=== PATIENT | female | born 1955 | race American Indian/Alaskan Native ===

== ENCOUNTER 2017-04-15 19:56 | Inpatient (IN) | payer BC ==
[2017-04-15] MEDS ORDERED: Eptifibatide 20 mg/10mL Inj IVP ONE (19:59)
[2017-04-15] MEDS ORDERED: Amiodarone 360 mg/D5W 200 ml 360 MG/200 ML BAG IV ONE (20:08)
--- NOTE | 2017-04-15 20:17 | ED PDOC ---
Arrival/HPI - General Time Seen by Provider: 04/15/17 20:00 Historian: Patient, EMS - History of Present Illness Narrative History of Present Illness (Text): 04/15/17 20:08 A 62 year old female transferred from another facility for cardiac arrest. Patient reportedly experienced a syncopal episode earlier today at work. Patient arrived to hospital and went into cardiac arrest, EKG showed ST-segment elevation [place]. She was defibrillated and started on amiodarone. Code heart was activated prior to patients arrival. On evaluation, patient is alert and oriented times 3. Patient currently denies any pain or discomfort. Patient denies any fever, chills, nausea, vomiting, abdominal pain, chest pain, shortness of breath or any other complaints. Time/Duration: Prior to Arrival Symptom Course: Resolved Quality: Other Context: Other Past Medical History - Provider Review Nursing Documentation Reviewed: Yes Family/Social History - Physician Review Nursing Documentation Reviewed: Yes Family/Social History: No Known Family HX Allergies/Home Meds Allergies/Adverse Reactions: Allergies latex Allergy (Verified 04/15/17 19:57) RASH pineapple Allergy (Verified 04/15/17 19:57) SWELLING Review of Systems - Physician Review All systems were reviewed & negative as marked: Yes - Review of Systems Constitutional: Normal. absent: Fevers, Night Sweats Respiratory: absent: SOB Cardiovascular: absent: Chest Pain Gastrointestinal: absent: Abdominal Pain, Nausea, Vomiting Neurological: absent: Headache, Dizziness Physical Exam Vital Signs Temp Pulse Pulse Resp BP Pulse Ox 04/15/17 20:00 83 04/15/17 19:56 98.2 F 83 18 113/76 99 Appearance: Positive for: Well-Appearing, Non-Toxic, Comfortable Pain Distress: None Mental Status: Positive for: Alert and Oriented X 3 - Systems Exam Head: Present: Atraumatic, Normocephalic Pupils: Present: PERRL Extroacular Muscles: Present: EOMI Conjunctiva: Present: Normal Mouth: Present: Moist Mucous Membranes Neck: Present: Normal Range of Motion Respiratory/Chest: Present: Clear to Auscultation, Good Air Exchange. No: Respiratory Distress, Accessory Muscle Use Cardiovascular: Present: Regular Rate and Rhythm, Normal S1, S2. No: Murmurs Abdomen: Present: Normal Bowel Sounds. No: Tenderness, Distention, Peritoneal Signs Back: Present: Normal Inspection Upper Extremity: Present: Normal Inspection. No: Cyanosis, Edema Lower Extremity: Present: Normal Inspection. No: Edema Neurological: Present: GCS=15, CN II-XII Intact, Speech Normal Skin: Present: Warm, Dry, Normal Color. No: Rashes Psychiatric: Present: Alert, Oriented x 3, Normal Insight, Normal Concentration Medical Decision Making ED Course and Treatment: 04/15/17 20:08 Impression: A 62 year old female brought in for cardiac arrest s/p rosc. stemi on previous ED EKG. On evaluation, patient is alert and oriented times 3. She denies any complaints at this time. Plan: -- Chest xray -- EKG -- Labs -- Urinalysis -- Reassess and disposition Progress Notes: 04/16/17 04:[address] anna nolasco. code heart activated. 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 [facility] with dr mast bedside. - Critical Care Critical Care Minutes: 45 minutes - Lab Interpretations Lab Results: 04/15/17 20:00 Lab Results 04/15/17 20:00: Phosphorus 2.9, Magnesium 2.5 H 04/15/17 20:00: Sodium 139, Potassium 3.6, Chloride 105, Carbon Dioxide 24, Anion Gap 14, BUN 13, Creatinine 0.5 L, Est GFR ( Amer) > 60, Est GFR ( Non-Af Amer) > 60, Random Glucose 156 H, Calcium 8.0 L, Magnesium 2.5 H, Total Bilirubin 0.7, AST 38 H, ALT 30, Alkaline Phosphatase 82, Lactate Dehydrogenase 507, Total Creatine Kinase 130, Troponin I 0.13 H*, Total Protein 6.6, Albumin 3.8, Globulin 2.8, Albumin/Globulin Ratio 1.4 I have reviewed the lab results: Yes - RAD Interpretation Radiology Orders: 04/15/17 20:00 CHEST PORTABLE [RAD] Stat - Medication Orders Current Medication Orders: Amiodarone HCl/Dextrose (Nexterone 360 Mg In D5w 200 Ml (Premix)) 360 mg in 200 mls @ 33.333 mls/hr IV .Q6H JENA; 1 MG/MIN PRN Reason: Protocol Last Admin: 04/16/17 02:14 Dose: 33.333 mls/hr eMAR Start Stop Document 04/16/17 02:14 JCHRISTIANE (Rec: 04/16/17 02:14 KARO [id number]) Intravenous Solution Start Date 04/16/17 Start Time 02:14 Potassium Chloride (Potassium Chloride 20 Meq/100 Ml) 20 meq in 100 mls @ 50 mls/hr IVPB ONCE ONE Stop: 04/16/17 05:50 Insulin Human Regular (Humulin R High) 0 units SC ACHS JENA PRN Reason: Protocol Last Admin: 04/15/17 22:29 Dose: Not Given Non-Admin Reason: Blood Sugar Parameter [facility] Blood Glucose Document 04/15/17 22:29 KARO (Rec: 04/15/17 22:29 KARO [id number]) Blood Glucose Finger Stick Blood Glucose (70-120) 135 Metoprolol Tartrate (Lopressor) 25 mg PO BID [facility] Last Admin: 04/15/17 21:41 Dose: 25 mg [facility] Pulse and Blood Pressure Document 04/15/17 21:41 KARO (Rec: 04/15/17 21:41 KARO [id number]) Pulse Pulse Rate (60-90) 86 Blood Pressure Blood Pressure (100/60-150/90) 114/50 Oxycodone/Acetaminophen (Percocet 5/325 Mg Tab) 1 tab PO Q4H PRN PRN Reason: Pain, severe (8-10) Stop: 04/18/17 21:32 Last Admin: 04/15/17 21:40 Dose: 1 tab [facility] Pain Assessment Document 04/15/17 21:40 KARO (Rec: 04/15/17 21:41 KARO [id number]) Pain Reassessment Is this a pain reassessment? No Sleep Is patient sleeping during reassessment? No Presence of Pain Presence of Pain Yes Pain Scale Used Pain Scale Used Numeric Location Left, Right or Bilateral Left Pain Location Body Site Chest Description Description Constant Intensity of Pain at present 10 Acceptable Level of Pain 0 Radiation Location CHEST Pain Behavior Facial Grimacing Aggravating Factors ADL's Changing Position Alleviating Factors/Management Medication Techniques Alleviating Factors Medication Effects of Pain DISCOMFORT Effectiveness of Techniques JUST GIVING MED. Re-Assess: [facility] Pain Assessment Document 04/15/17 22:40 KARO (Rec: 04/15/17 22:55 KARO [id number]) Pain Reassessment Is this a pain reassessment? Yes Sleep Is patient sleeping during reassessment? No Presence of Pain Presence of Pain No Pain Scale Used Pain Scale Used Numeric Location Pain Location Body Site Chest Description Intensity of Pain at present 0 Acceptable Level of Pain 0 Radiation Location CHEST Alleviating Factors/Management Medication Techniques Alleviating Factors Medication Effectiveness of Techniques EFFECTIVE Discontinued Medications Calcium/Vitamin D (Oscal-D 250 Mg-125 Units Tab) 1 tab PO STAT STA Stop: 04/15/17 23:20 Last Admin: 04/15/17 23:28 Dose: 1 tab Sodium Chloride (Sodium Chloride 0.9%) 1,000 mls @ 50 mls/hr IV .Q20H JENA Stop: 04/16/17 01:00 Last Admin: 04/15/17 21:52 Dose: 50 mls/hr eMAR Start Stop Document 04/15/17 21:52 KARO (Rec: 04/15/17 21:53 KARO [id number]) Intravenous Solution Start Date 04/15/17 Start Time 21:25 Calcium Gluconate 1,000 mg/ (Dextrose) 110 mls @ 110 mls/hr IVPB ONCE ONE Stop: 04/16/17 03:44 Last Admin: 04/16/17 03:05 Dose: 110 mls/hr eMAR Start Stop Document 04/16/17 03:05 PD (Rec: 04/16/17 03:05 PD [id number]) Intravenous Solution Start Date 04/16/17 Start Time 03:05 Morphine Sulfate (Morphine) 2 mg IVP STAT STA Stop: 04/15/17 23:04 Last Admin: 04/15/17 23:20 Dose: 2 mg MAR Pain Assessment Document 04/15/17 23:20 KARO (Rec: 04/15/17 23:22 KARO [id number]) Pain Reassessment Is this a pain reassessment? No Sleep Is patient sleeping during reassessment? No Presence of Pain Presence of Pain Yes Pain Scale Used Pain Scale Used Numeric Location Pain Location Body Site Chest Description Description Constant Intensity of Pain at present 7 Acceptable Level of Pain 0 Radiation Location CHEST Pain Behavior Restlessness Facial Grimacing Aggravating Factors ADL's Changing Position Alleviating Factors/Management Medication Techniques Alleviating Factors Medication Effects of Pain DISCOMFORT Effectiveness of Techniques JUST GIVING MED. IVP Administration Document 04/15/17 23:20 KARO (Rec: 04/15/17 23:22 KARO [id number]) Charges for Administration # of IVP Administrations 1 - Scribe Statement The provider has reviewed the documentation as recorded by the Scribe Hortensia Smith Provider Scribe Attestation: All medical record entries made by the Scribe were at my direction and personally dictated by me. I have reviewed the chart and agree that the record accurately reflects my personal performance of the history, physical exam, medical decision making, and the department course for this patient. I have also personally directed, reviewed, and agree with the discharge instructions and disposition. Disposition/Present on Arrival - Present on Arrival Any Indicators Present on Arrival: No - Disposition Have Diagnosis and Disposition been Completed?: Yes Diagnosis: STEMI (ST elevation myocardial infarction) Disposition: HOSPITALIZED Disposition Time: 10:00 Patient Problems: Current Active Problems Problem Status Onset STEMI (ST elevation myocardial infarction) Acute Condition: CRITICAL
[2017-04-15] MEDS ORDERED: Midazolam 2 MG/2 ML VIAL ONE (20:35)
--- NOTE | 2017-04-15 20:41 | CP.PCM.PN ---
<RHONA BARNETT - Last Filed: 04/15/17 20:36> Subjective - Date & Time of Evaluation Date of Evaluation: 04/15/17 Time of Evaluation: 20:36 - Subjective Subjective: Responded STAT to code heart in the ER. As per ER staff, pt had gone to nearby urgent care center, where she was noted to have an acute ST elevation [place]. Pt coded and was resuscitated. She was placed on amioadarone drip and transferred to [facility] ER for cardiac cath and any intervention that is needed. Pt was treated by ER MD, there after with oxygen and patient monitor in place. She was transferred to [facility] by staff from ER, Dr. Zuñiga, and myself. We waited in [facility] until Dr. Gillespie's arrival. <Rosana Zuñiga - Last Filed: 04/15/17 21:18> Objective - Vital Signs/Intake and Output Vital Signs (last 24 hours): Temp Pulse Resp BP Pulse Ox 98.2 F 83 18 113/76 99 04/15/17 19:56 04/15/17 20:00 04/15/17 19:56 04/15/17 19:56 04/15/17 19:56 Attending/Attestation - Attestation I have personally seen and examined this patient.: No I have fully participated in the care of the patient.: No I have reviewed all pertinent clinical information, including history, physical exam and plan: Yes Notes (Text): 04/15/17 21:10 Since this pt needed to be transferred to the [facility], he was not examined by us,her history was reviewed before she was transferred to the [facility].
[2017-04-15 20:58] LABS: ALB/GLOB RATIO 1.4 (1.1-1.8); ALKALINE PHOSPHATASE 82 U/L (38-126); ALT/SGPT 30 U/L (7-56); AST/SGOT 38 U/L (14-36); BILIRUBIN,TOTAL 0.7 mg/dL (0.2-1.3); BLOOD UREA NITROGEN 13 mg/dL (7-21); CARBON DIOXIDE 24 mmol/L (21-33); CHLORIDE 105 mmol/L (98-107); GFR AFRICAN-AMERICAN > 60; GLUCOSE,RANDOM 156 mg/dL (70-110); MAGNESIUM 2.5 mg/dL (1.7-2.2); POTASSIUM 3.6 mmol/L (3.6-5.0); SODIUM 139 mmol/L (132-148); TOTAL PROTEIN 6.6 g/dL (5.8-8.3)
[2017-04-15] MEDS ORDERED: Metoprolol 1 mg/ml Inj IVP ONE (21:03)
[2017-04-15 21:10] LABS: TROPONIN I 0.13 ng/mL
[2017-04-15 21:27] LABS: MAGNESIUM 2.5 mg/dL (1.7-2.2); PHOSPHOROUS 2.9 mg/dL (2.5-4.5)
[2017-04-15] MEDS ORDERED: Sodium Chloride 0.9% 1,000 ML IV SCH (21:30)
[2017-04-15] MEDS: Oxycodone/Acetaminophen 5/325 mg Tab PO PRN (21:40)
[2017-04-15] MEDS: Insulin Reg-HIGH-Coverage SC SCH (22:29)
[2017-04-15 22:38] LABS: GRAN # 8.96 (1.4-6.5); GRAN % 87.2 % (50.0-68.0); HEMATOCRIT 39.4 % (36.0-48.0); LYMPH % 9.5 % (22.0-35.0); MEAN CELL VOLUME 88.1 fl (80.0-105.0); MEAN CORPUSCULAR HEMOGLOBIN 28.9 pg (25.0-35.0); MEAN CORPUSCULAR HGB CONC 32.7 g/dl (31.0-37.0); MEAN PLATELET VOLUME 9.9 fl (7.0-11.0); MONO # 0.3 (0.1-0.6); MONO % 3.3 % (1.0-6.0); WHITE BLOOD COUNT 10.3 10^3/ul (4.5-11.0)
[2017-04-15 22:47] LABS: INR 1.04 (0.93-1.08); PARTIAL THROMBOPLASTIN TIME 49.1 Seconds (23.7-30.8)
[2017-04-15 22:58] LABS: CHOLESTEROL 170 mg/dL (130-200)
[2017-04-15] MEDS ORDERED: Morphine 4 mg/ml ISec IVP STA (23:03)
--- NOTE | 2017-04-15 23:06 | CP.PCM.CON ---
<Haris Nava - Last Filed: 04/15/17 23:27> History of Present Illness - History of Present Illness History of Present Illness: ICU consult note: 62 year old female with pmh of hemorrhagic cystitis, osteoprosis, seasonal allergies, presents to the ICU following code heart and clinical lab clerk. Pt states that earlier at work she had a syncopal episode accompanied with urinary incontinence. She than came home and went to urgent care center. Pt was reportedly had a cardiac arrest, coded and resuscitated, defibrillated?, and placed on Amio drip. Code heart activated prior to patient arrival. EKG showed STEMI. Pt was brought to the clinical lab clerk which was negative for any acute occlusion of coronary arteries. Pt did not complain of any chest pain, palpitations, or sob earlier in the day. She currently complains of some soreness of the R groin in the entrance site of the cardiac cath. Denies any cp, sob, cp, abd pain, n/v/d. 12 point ROS performed and negative other than stated above. 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, osteoprosis, seasonal allergies, PSH: cystoscopy 6yo Med: refer to MAR ALL: latex and pineapple SH: smoker x 40 years of half PPD; social drinker and marijuana user FH: denies Review of Systems - Review of Systems All systems: reviewed and no additional remarkable complaints except Past Patient History - Past Social History Smoking Status: Never Smoked - MUSCULOSKELETAL/RHEUMATOLOGICAL Hx Musculoskeletal Disorders: Yes Hx Osteoporosis: Yes - PSYCHIATRIC Hx Psychophysiologic Disorder: No Hx Substance Use: No - SURGICAL HISTORY Hx Surgeries: Yes (cystoscopy) - ANESTHESIA Hx Anesthesia: Yes Hx Anesthesia Reactions: No Hx Malignant Hyperthermia: No Meds Allergies/Adverse Reactions: Allergies Allergy/AdvReac Type Severity Reaction Status Date / Time latex Allergy RASH Verified 04/15/17 19:57 pineapple Allergy SWELLING Verified 04/15/17 19:57 - Medications Medications: Current Medications Calcium/Vitamin D (Oscal-D 250 Mg-125 Units Tab) 1 tab PO DAILY ONE Stop: 04/16/17 22:57 Sodium Chloride (Sodium Chloride 0.9%) 1,000 mls @ 50 mls/hr IV .Q20H JENA Stop: 04/16/17 01:00 Last Admin: 04/15/17 21:52 Dose: 50 mls/hr Insulin Human Regular (Humulin R High) 0 units SC ACHS JENA PRN Reason: Protocol Last Admin: 04/15/17 22:29 Dose: Not Given Metoprolol Tartrate (Lopressor) 25 mg PO BID [facility] Last Admin: 04/15/17 21:41 Dose: 25 mg Oxycodone/Acetaminophen (Percocet 5/325 Mg Tab) 1 tab PO Q4H PRN PRN Reason: Pain, severe (8-10) Stop: 04/18/17 21:32 Last Admin: 04/15/17 21:40 Dose: 1 tab Physical Exam - Constitutional Appears: No Acute Distress - Head Exam Head Exam: ATRAUMATIC, NORMOCEPHALIC - Eye Exam Eye Exam: EOMI, PERRL Pupil Exam: NORMAL ACCOMODATION - ENT Exam ENT Exam: Mucous Membranes Moist - Respiratory Exam Respiratory Exam: Clear to Auscultation Bilateral. absent: Rales, Wheezes - Cardiovascular Exam Cardiovascular Exam: REGULAR RHYTHM, +S1, +S2 - GI/Abdominal Exam GI & Abdominal Exam: Normal Bowel Sounds, Soft. absent: Tenderness - Extremities Exam Extremities exam: Negative for: calf tenderness, pedal edema - Neurological Exam Neurological exam: Alert, Oriented x3, Reflexes Normal - Psychiatric Exam Psychiatric exam: Normal Affect, Normal Mood - Skin Skin Exam: Dry, Intact, Warm Additional comments: RLE groin area: dressing cdi Results - Vital Signs Recent Vital Signs: Last Vital Signs Temp 98.4 F 04/15/17 21:25 Pulse 80 04/15/17 22:40 Resp 23 04/15/17 22:40 BP 120/85 04/15/17 22:30 Pulse Ox 96 04/15/17 22:40 - Labs Result Diagrams: 04/15/17 22:32 04/15/17 20:00 Labs: Laboratory Results - last 24 hr 04/15/17 04/15/17 04/15/17 21:57 22:32 22:32 WBC 10.3 RBC 4.47 Hgb 12.9 Hct 39.4 MCV 88.1 MCH 28.9 MCHC 32.7 RDW 16.0 H Plt Count 223 MPV 9.9 Gran % 87.2 H Lymph % (Auto) 9.5 L [place] % (Auto) 3.3 Eos % (Auto) 0.0 L Baso % (Auto) 0.0 Gran # 8.96 H Lymph # 1.0 L [place] # 0.3 Eos # 0.0 Baso # 0.00 PT 11.2 INR 1.04 APTT 49.1 H POC Glucose (mg/dL) 135 H Triglycerides Cholesterol HDL Cholesterol 04/15/17 22:32 WBC RBC Hgb Hct MCV MCH MCHC RDW Plt Count MPV Gran % Lymph % (Auto) [place] % (Auto) Eos % (Auto) Baso % (Auto) Gran # Lymph # [place] # Eos # Baso # PT INR APTT POC Glucose (mg/dL) Triglycerides 43 Cholesterol 170 HDL Cholesterol 46 Assessment & Plan - Assessment and Plan (Free Text) Assessment: 62F with pmh of hemorrhagic cystitis, osteoprosis, seasonal allergies, and heavy smoker presents to the ICU following cardiac arrest, defibrillation?, code heart called from the field, found to have STEMI and elevated troponin in the ED, sent to the clinical lab clerk - showing no acute occlusion of any coronary arteries. Pt currently is hemodynamically stable, being observed in the ICU, and is on Amiodorone drip. Neuro: - Stable - AAO x 3 Pulm: - O2 as needed - Stable CV: - EKG showed STEMI - Troponin x 1 positive at 0.13 - Cont Amiodrone drip, BB - Cardiology consult for recs - F/u serial trops and morning EKG - F/u Hba1c, BNP, TSH, Lipid profile - Consider starting aspirin GI: - GI ppx - Stable Renal: - Cont fluid hydration NS @ 50/hr - Replete electrolytes as needed - Ca of 8 - repleted with Oscal x 1 ID: - afebrile, and no leukocytosis - Stable Endo: - Finger stick blood sugars - ISS as protocol Heme: - Monitor H/H - Stable Ext: - Monitor for ext pulses - Monitor R groin dressing Case and plan was reviewed and discussed in detail with Dr Rhodes. <Meagan POMPA,Trung - Last Filed: 04/16/17 06:55> Meds - Medications Medications: Current Medications Amiodarone HCl/Dextrose (Nexterone 360 Mg In D5w 200 Ml (Premix)) 360 mg in 200 mls @ 33.333 mls/hr IV .Q6H JENA; 1 MG/MIN PRN Reason: Protocol Last Admin: 04/16/17 02:14 Dose: 33.333 mls/hr Insulin Human Regular (Humulin R High) 0 units SC ACHS JENA PRN Reason: Protocol Last Admin: 04/15/17 22:29 Dose: Not Given Metoprolol Tartrate (Lopressor) 25 mg PO BID JENA Last Admin: 04/15/17 21:41 Dose: 25 mg Oxycodone/Acetaminophen (Percocet 5/325 Mg Tab) 1 tab PO Q4H PRN PRN Reason: Pain, severe (8-10) Stop: 04/18/17 21:32 Last Admin: 04/16/17 05:05 Dose: 1 tab Results - Vital Signs Recent Vital Signs: Last Vital Signs Temp 98.4 F 04/16/17 00:00 Pulse 72 04/16/17 06:15 Resp 23 04/16/17 06:15 BP 106/71 04/16/17 06:15 Pulse Ox 99 04/16/17 06:15 - Labs Result Diagrams: 04/16/17 04:00 04/16/17 04:00 Labs: Laboratory Results - last 24 hr 04/15/17 04/15/17 04/15/17 21:57 22:32 22:32 WBC 10.3 RBC 4.47 Hgb 12.9 Hct 39.4 MCV 88.1 MCH 28.9 MCHC 32.7 RDW 16.0 H Plt Count 223 MPV 9.9 Gran % 87.2 H Lymph % (Auto) 9.5 L [place] % (Auto) 3.3 Eos % (Auto) 0.0 L Baso % (Auto) 0.0 Gran # 8.96 H Lymph # 1.0 L [place] # 0.3 Eos # 0.0 Baso # 0.00 PT 11.2 INR 1.04 APTT 49.1 H Sodium Potassium Chloride Carbon Dioxide Anion Gap BUN Creatinine Est GFR ( Amer) Est GFR (Non-Af Amer) POC Glucose (mg/dL) 135 H Random Glucose Calcium Total Bilirubin AST ALT Alkaline Phosphatase Troponin I NT-Pro-B Natriuret Pep Total Protein Albumin Globulin Albumin/Globulin Ratio Triglycerides Cholesterol LDL Cholesterol Direct HDL Cholesterol TSH 3rd Generation 04/15/17 04/15/17 04/16/17 22:32 22:32 04:00 WBC 12.7 H D RBC 4.46 Hgb 12.7 Hct 39.4 MCV 88.3 MCH 28.5 MCHC 32.2 RDW 16.1 H Plt Count 225 MPV 10.6 Gran % Lymph % (Auto) [place] % (Auto) Eos % (Auto) Baso % (Auto) Gran # Lymph # [place] # Eos # Baso # PT INR APTT Sodium Potassium Chloride Carbon Dioxide Anion Gap BUN Creatinine Est GFR ( Amer) Est GFR (Non-Af Amer) POC Glucose (mg/dL) Random Glucose Calcium Total Bilirubin AST ALT Alkaline Phosphatase Troponin I NT-Pro-B Natriuret Pep 4790 H Total Protein Albumin Globulin Albumin/Globulin Ratio Triglycerides 43 Cholesterol 170 LDL Cholesterol Direct 119 HDL Cholesterol 46 TSH 3rd Generation 0.34 L 04/16/17 04:00 WBC RBC Hgb Hct MCV MCH MCHC RDW Plt Count MPV Gran % Lymph % (Auto) [place] % (Auto) Eos % (Auto) Baso % (Auto) Gran # Lymph # [place] # Eos # Baso # PT INR APTT Sodium 139 Potassium 4.1 Chloride 104 Carbon Dioxide 24 Anion Gap 15 BUN 13 Creatinine 0.5 L Est GFR ( Amer) > 60 Est GFR (Non-Af Amer) > 60 POC Glucose (mg/dL) Random Glucose 151 H Calcium 9.0 Total Bilirubin 0.8 AST 30 ALT 34 Alkaline Phosphatase 77 Troponin I 0.09 D NT-Pro-B Natriuret Pep Total Protein 7.1 Albumin 4.0 Globulin 3.1 Albumin/Globulin Ratio 1.3 Triglycerides Cholesterol LDL Cholesterol Direct HDL Cholesterol TSH 3rd Generation Attending/Attestation - Attestation I have personally seen and examined this patient.: Yes I have fully participated in the care of the patient.: Yes I have reviewed all pertinent clinical information: Yes Notes (Text): -I agree with the above ICU consult note completed by the resident physician with the following additions and/or changes: The patient is a 62 yo AAF with a history of chronic tobacco use, who presented to a nearby urgent care clinic with syncope yesterday. At the clinic she reportedly required ACLS resuscitation (with defibrillation)(presumably due to Vtach) and was also found to have an STEMI on EKG. Consequently, she was transferred immediately to [facility] and take to the clinical lab clerk. Cardiac cath showed clear coronaries and dilated cardiomyopathy, consistent with Takotsubo cardiomyopathy. She was started on Amiodarone drip and transferred to the ICU this evening post cardiac cath. Currently, she denies any chest pain.
--- NOTE | 2017-04-15 23:11 | CARDCATH ---
EMERGENCY CARDIAC CATHETERIZATION PROCEDURE DATE: 04/15/2017 HISTORY: The patient is a 62-year-old woman, who was [facility] the [facility] emergency [facility] after suffering two episodes of documented vascular collapse secondary to ventricular tachycardia in which she had multiple CPR episodes. The patient woke up from her electrical arrhythmia and hemodynamic collapse and was neurologically intact. Her EKG showed markedly diffuse ST-T changes consistent with anterior wall ischemia versus metabolic abnormalities. The patient was brought in, was transferred to [facility] for emergency cardiac catheterization. PROCEDURE Left heart catheterization with coronary artery and left ventriculogram with supra-aortic valvular injection. The right femoral artery was cannulated with 6-Yoruba sheath. There were no complications. The findings on catheterization revealed a right dominant circulation. The RCA revealed intimal irregularities without significant stenoses. The left main artery was unremarkable. The LAD revealed mild intimal irregularities without critical lesions. Diagonal vessels were free of significant disease. The circumflex artery and obtuse marginal branch revealed mild intimal irregularities without critical lesions. Supra-aortic valvular injection revealed no aortic insufficiency. Left ventriculogram was performed in the NORTH projection. In the NORTH projection, the left ventricle was dilated and diffusely hypokinetic with an ejection fraction 20% to 25%. The anterior apical inferior segments were akinetic. Angio-Seal was used to close the femoral artery site. The patient tolerated the procedure well. In summary, the procedure revealed a dilated cardiomyopathy consistent with Takotsubo cardiomyopathy. Coronary arteries are unremarkable. Given these findings, we will continue the patient on IV amiodarone. We will add beta-blockers her regimen. We will need to recheck all her electrolytes. We will obtain an EP consult to better help evaluate and treat her electrical abnormalities. Philip Gillespie MD
[2017-04-15] MEDS ORDERED: Calcium-Vit D 250 mg-125 Units Tab UD PO STA (23:19)
[2017-04-16 00:40] VITALS: BMI 25.7
[2017-04-16] MEDS: Amiodarone 360 mg/D5W 200 ml 360 MG/200 ML BAG IV SCH ×4 (02:14→20:28)
[2017-04-16 04:28] LABS: HEMATOCRIT 39.4 % (36.0-48.0); MEAN CELL VOLUME 88.3 fl (80.0-105.0); MEAN CORPUSCULAR HEMOGLOBIN 28.5 pg (25.0-35.0); MEAN CORPUSCULAR HGB CONC 32.2 g/dl (31.0-37.0); MEAN PLATELET VOLUME 10.6 fl (7.0-11.0); RED CELL DISTRIBUTION WIDTH 16.1 % (11.5-14.5); WHITE BLOOD COUNT 12.7 10^3/ul (4.5-11.0)
[2017-04-16 04:37] LABS: ALB/GLOB RATIO 1.3 (1.1-1.8); ALKALINE PHOSPHATASE 77 U/L (38-126); ALT/SGPT 34 U/L (7-56); AST/SGOT 30 U/L (14-36); BILIRUBIN,TOTAL 0.8 mg/dL (0.2-1.3); BLOOD UREA NITROGEN 13 mg/dL (7-21); CARBON DIOXIDE 24 mmol/L (21-33); CHLORIDE 104 mmol/L (98-107); GFR AFRICAN-AMERICAN > 60; GLUCOSE,RANDOM 151 mg/dL (70-110); POTASSIUM 4.1 mmol/L (3.6-5.0); SODIUM 139 mmol/L (132-148); TOTAL PROTEIN 7.1 g/dL (5.8-8.3)
[2017-04-16 05:00] LABS: TROPONIN I 0.09 ng/mL
[2017-04-16] MEDS: Oxycodone/Acetaminophen 5/325 mg Tab PO PRN ×2 (05:05→22:22)
[2017-04-16] MEDS: Potassium Chloride 10 mEq ER Tab PO SCH (07:49)
[2017-04-16] MEDS: Insulin Reg-HIGH-Coverage SC SCH ×4 (07:49→21:43)
--- NOTE | 2017-04-16 08:50 | RAD ---
HISTORY: code heart COMPARISON: No prior. FINDINGS: LUNGS: No active pulmonary disease. PLEURA: No significant pleural effusion identified, no pneumothorax apparent. CARDIOVASCULAR: Normal. OSSEOUS STRUCTURES: No significant abnormalities. VISUALIZED UPPER ABDOMEN: Normal. OTHER FINDINGS: None. IMPRESSION: No active disease.
[2017-04-16 09:57] LABS: URINE BILIRUBIN NEGATIVE (NEGATIVE); URINE BLOOD SMALL (NEGATIVE); URINE GLUCOSE (UA) NEGATIVE (NEGATIVE); URINE KETONE TRACE mg/dL (NEGATIVE); URINE LEUKOCYTE ESTERASE NEGATIVE Leu/uL (NEGATIVE); URINE PROTEIN TRACE mg/dL (<30 mg/dL); URINE UROBILINOGEN 0.2 E.U./dL (<1 E.U./dL)
[2017-04-16 09:58] LABS: URINE APPEARANCE SL CLOUDY (CLEAR); URINE COLOR YELLOW (YELLOW)
--- NOTE | 2017-04-16 10:04 | CP.PCM.CON ---
History of Present Illness - History of Present Illness History of Present Illness: 62 year old female with PMH of hemorrhagic cystitis from NSAIDs, osteoporosis, seasonal allergies, S/P cystoscopy was [place] [facility] [place] apparently had ventricular tachycardia and cardiac arrest requiring CPR in the field. When she got here, she was placed on an Amiodarone drip and cardiac cath was done which showed clean coronary arteries. EP has been called to further evaluate. Today, WBC count is noted to be elevated and Infectious diseases consult is requested to further evaluate and manage. Patient denies having fever or chills , did not have cough prior to admission, no rhinorrhea, no headache or dizziness , has chest pain currently but she attributes it to the chest compressions, no abdominal pain, no diarrhea, no dysuria. Review of Systems - Review of Systems All systems: reviewed and no additional remarkable complaints except (as per HPI ) Past Patient History - Past Social History Smoking Status: Never Smoked - CARDIAC Hx Cardiac Disorders: No - PULMONARY Hx Respiratory Disorders: No - NEUROLOGICAL Hx Dizziness: Yes (TODAY) - HEENT Hx HEENT Problems: No - RENAL Hx Chronic Kidney Disease: No - ENDOCRINE/METABOLIC Hx Endocrine Disorders: No - HEMATOLOGICAL/ONCOLOGICAL Hx Blood Disorders: No - INTEGUMENTARY Hx Dermatological Problems: No - MUSCULOSKELETAL/RHEUMATOLOGICAL Hx Musculoskeletal Disorders: Yes Hx Osteoporosis: Yes - GASTROINTESTINAL Hx Gastrointestinal Disorders: No - GENITOURINARY/GYNECOLOGICAL Hx Genitourinary Disorders: No - PSYCHIATRIC Hx Psychophysiologic Disorder: No Hx Substance Use: No - SURGICAL HISTORY Hx Surgeries: Yes (cystoscopy) - ANESTHESIA Hx Anesthesia: Yes Hx Anesthesia Reactions: No Hx Malignant Hyperthermia: No Meds Allergies/Adverse Reactions: Allergies Allergy/AdvReac Type Severity Reaction Status Date / Time latex Allergy RASH Verified 04/15/17 19:57 pineapple Allergy SWELLING Verified 04/15/17 19:57 - Medications Medications: Current Medications Amiodarone HCl (Cordarone) 800 mg PO BID JENA Amiodarone HCl/Dextrose (Nexterone 360 Mg In D5w 200 Ml (Premix)) 360 mg in 200 mls @ 33.333 mls/hr IV .Q6H JENA; 1 MG/MIN PRN Reason: Protocol Last Admin: 04/16/17 02:14 Dose: 33.333 mls/hr Insulin Human Regular (Humulin R High) 0 units SC ACHS JENA PRN Reason: Protocol Last Admin: 04/16/17 07:49 Dose: Not Given Metoprolol Tartrate (Lopressor) 25 mg PO BID [facility] Last Admin: 04/15/17 21:41 Dose: 25 mg Oxycodone/Acetaminophen (Percocet 5/325 Mg Tab) 1 tab PO Q4H PRN PRN Reason: Pain, severe (8-10) Stop: 04/18/17 21:32 Last Admin: 04/16/17 05:05 Dose: 1 tab Potassium Chloride (Klor-Con 10) 10 meq PO BRK [facility] Last Admin: 04/16/17 07:49 Dose: 10 meq Physical Exam - Constitutional Appears: Non-toxic, Other (in some pain in the chest) - Head Exam Head Exam: NORMAL INSPECTION - ENT Exam ENT Exam: Mucous Membranes Moist - Neck Exam Neck exam: Negative for: Meningismus - Respiratory Exam Respiratory Exam: Decreased Breath Sounds - Cardiovascular Exam Cardiovascular Exam: +S1, +S2 - GI/Abdominal Exam GI & Abdominal Exam: Soft. absent: Tenderness Results - Vital Signs Recent Vital Signs: Last Vital Signs Temp 98.4 F 04/16/17 00:00 Pulse 74 04/16/17 08:30 Resp 20 04/16/17 08:30 BP 111/66 04/16/17 08:30 Pulse Ox 97 04/16/17 08:30 - Labs Result Diagrams: 04/16/17 04:00 04/16/17 04:00 Labs: Laboratory Results - last 24 hr 04/15/17 04/15/17 04/15/17 21:57 22:32 22:32 WBC 10.3 RBC 4.47 Hgb 12.9 Hct 39.4 MCV 88.1 MCH 28.9 MCHC 32.7 RDW 16.0 H Plt Count 223 MPV 9.9 Gran % 87.2 H Lymph % (Auto) 9.5 L Geary % (Auto) 3.3 Eos % (Auto) 0.0 L Baso % (Auto) 0.0 Gran # 8.96 H Lymph # 1.0 L Geary # 0.3 Eos # 0.0 Baso # 0.00 PT 11.2 INR 1.04 APTT 49.1 H Sodium Potassium Chloride Carbon Dioxide Anion Gap BUN Creatinine Est GFR ( Amer) Est GFR (Non-Af Amer) POC Glucose (mg/dL) 135 H Random Glucose Calcium Total Bilirubin AST ALT Alkaline Phosphatase Troponin I NT-Pro-B Natriuret Pep Total Protein Albumin Globulin Albumin/Globulin Ratio Triglycerides Cholesterol LDL Cholesterol Direct HDL Cholesterol TSH 3rd Generation 04/15/17 04/15/17 04/16/17 22:32 22:32 04:00 WBC 12.7 H D RBC 4.46 Hgb 12.7 Hct 39.4 MCV 88.3 MCH 28.5 MCHC 32.2 RDW 16.1 H Plt Count 225 MPV 10.6 Gran % Lymph % (Auto) Geary % (Auto) Eos % (Auto) Baso % (Auto) Gran # Lymph # Geary # Eos # Baso # PT INR APTT Sodium Potassium Chloride Carbon Dioxide Anion Gap BUN Creatinine Est GFR ( Amer) Est GFR (Non-Af Amer) POC Glucose (mg/dL) Random Glucose Calcium Total Bilirubin AST ALT Alkaline Phosphatase Troponin I NT-Pro-B Natriuret Pep 4790 H Total Protein Albumin Globulin Albumin/Globulin Ratio Triglycerides 43 Cholesterol 170 LDL Cholesterol Direct 119 HDL Cholesterol 46 TSH 3rd Generation 0.34 L 04/16/17 04:00 WBC RBC Hgb Hct MCV MCH MCHC RDW Plt Count MPV Gran % Lymph % (Auto) Geary % (Auto) Eos % (Auto) Baso % (Auto) Gran # Lymph # Geary # Eos # Baso # PT INR APTT Sodium 139 Potassium 4.1 Chloride 104 Carbon Dioxide 24 Anion Gap 15 BUN 13 Creatinine 0.5 L Est GFR ( Amer) > 60 Est GFR (Non-Af Amer) > 60 POC Glucose (mg/dL) Random Glucose 151 H Calcium 9.0 Total Bilirubin 0.8 AST 30 ALT 34 Alkaline Phosphatase 77 Troponin I 0.09 D NT-Pro-B Natriuret Pep Total Protein 7.1 Albumin 4.0 Globulin 3.1 Albumin/Globulin Ratio 1.3 Triglycerides Cholesterol LDL Cholesterol Direct HDL Cholesterol TSH 3rd Generation Assessment & Plan - Assessment and Plan (Free Text) Plan: Assessment Systemic Inflammatory Response Syndrome, consider acute stress reaction from dilated cardiomyopathy S/P cardiac cath R/O sepsis source to be determined hemorrhagic cystitis from NSAIDs osteoporosis seasonal allergies S/P cystoscopy Plan Will check blood, urine cx, PCT; CXR did not show infiltrates - will monitor off antibiotics for now and trend WBC count will monitor clinically follow up further Cardiology evaluation
[2017-04-16 10:05] LABS: URINE BACTERIA FEW (NEG); URINE EPITHELIAL CELLS 0 - 2 /hpf (0-5); URINE RBC 0 - 2 /hpf (0-2)
--- NOTE | 2017-04-16 10:17 | CP.CCUPN ---
<AryanRinku - Last Filed: 04/16/17 15:34> CCU Subjective - Physician Review Subjective (Free Text): 04/16/17 10:14 Patient seen and examined this AM in ICU. Patient is s/p LHC with cardiology earlier this AM. Patient is complaining of nausea and ankle discomfort as well as chest discomfort for which she credited to chest compressions preformed yesterday. Patient denies shob, abdominal pain, fever, chills. CCU Objective - Vital Signs / Intake & Output Vital Signs (Last 4 hours): Vital Signs Pulse Resp BP Pulse Ox 04/16/17 10:00 97 H 25 H 99 04/16/17 09:50 72 36 H 96 04/16/17 09:41 76 47 H 04/16/17 09:40 86 20 04/16/17 09:30 75 29 H 105/70 82 L 04/16/17 09:20 72 23 97 04/16/17 09:15 72 26 H 105/62 97 04/16/17 09:10 71 25 H 96 04/16/17 09:00 73 22 109/68 98 04/16/17 08:50 74 19 91 L 04/16/17 08:45 71 22 104/58 L 96 04/16/17 08:40 72 23 96 04/16/17 08:30 74 20 111/66 97 04/16/17 08:20 75 40 H 95 04/16/17 08:16 79 22 121/72 96 04/16/17 08:10 78 13 96 04/16/17 08:08 82 14 124/70 04/16/17 08:02 71 23 111/73 99 04/16/17 08:00 72 21 99 04/16/17 07:50 70 21 105/73 96 04/16/17 07:45 76 22 105/73 96 04/16/17 07:40 68 25 H 97 04/16/17 07:30 76 17 113/63 99 04/16/17 07:20 71 98 04/16/17 07:15 71 23 105/69 99 04/16/17 07:10 73 98 04/16/17 07:00 69 23 100/67 98 04/16/17 06:50 74 20 98 04/16/17 06:45 74 24 108/51 L 98 04/16/17 06:40 80 16 88 L 04/16/17 06:30 73 22 106/70 97 04/16/17 06:20 73 21 99 04/16/17 06:15 72 23 106/71 99 Intake and Output (Last 8hrs): Intake & Output 04/15/17 04/16/17 04/16/17 22:59 06:59 14:59 Intake Total 1230 Output Total 125 Balance 1105 Weight 169 lb 169 lb Intake: IV 1030 Left Antecubital 1030 Right Antecubital 0 Oral 200 Output: Urine 125 Urine, Voided 125 Other: # Bowel Movements 0 - Physical Exam Head: Positive for: Atraumatic, Normocephalic Pupils: Positive for: PERRL Extroacular Muscles: Positive for: EOMI Conjunctiva: Positive for: Normal Mouth: Positive for: Moist Mucous Membranes Neck: Positive for: Normal Range of Motion Respiratory/Chest: Positive for: Clear to Auscultation, Good Air Exchange. Negative for: Respiratory Distress, Accessory Muscle Use Cardiovascular: Positive for: Regular Rate and Rhythm, Normal S1, S2. Negative for: Murmurs Abdomen: Positive for: Normal Bowel Sounds. Negative for: Tenderness, Distention, Peritoneal Signs Back: Positive for: Normal Inspection Upper Extremity: Positive for: Normal Inspection. Negative for: Cyanosis, Edema Lower Extremity: Positive for: Normal Inspection. Negative for: Edema Neurological: Positive for: GCS=15, CN II-XII Intact, Speech Normal Skin: Positive for: Warm, Dry, Normal Color. Negative for: Rashes Psychiatric: Positive for: Alert, Oriented x 3, Normal Insight, Normal Concentration - Medications Active Medications: Active Medications Generic Name Dose Route Start Last Admin Trade Name Freq PRN Reason Stop Dose Admin Amiodarone HCl 800 mg 04/16/17 10:00 Cordarone PO BID JENA Amiodarone HCl/Dextrose 360 mg in 200 mls @ 33.333 mls/hr 04/16/17 02:15 02:14 Nexterone 360 Mg In D5w 200 Ml (Premix) IV 33.333 mls/hr .Q6H JENA Administration Protocol 1 MG/MIN Insulin Human Regular 0 units 04/15/17 22:00 04/16/17 07:49 Humulin R High SC Not Given ACHS JENA Protocol Metoprolol Tartrate 25 mg 04/15/17 21:30 04/15/17 21:41 Lopressor PO 25 mg BID JENA Administration Oxycodone/Acetaminophen 1 tab 04/15/17 21:31 04/16/17 05:05 Percocet 5/325 Mg Tab PO 04/18/17 21:32 1 tab Q4H PRN Administration Pain, severe (8-10) Potassium Chloride 10 meq 04/16/17 08:00 04/16/17 07:49 Klor-Con 10 PO 10 meq BRK JENA Administration - Patient Studies Lab Studies: Lab Studies 04/16/17 04/16/17 04/16/17 Range/Units 09:50 04:00 04:00 WBC 12.7 H D (4.5-11.0) 10^3/ul RBC 4.46 (3.5-6.1) 10^6/uL Hgb 12.7 (12.0-16.0) g/dL Hct 39.4 (36.0-48.0) % MCV 88.3 (80.0-105.0) fl MCH 28.5 (25.0-35.0) pg MCHC 32.2 (31.0-37.0) g/dl RDW 16.1 H (11.5-14.5) % Plt Count 225 (120.0-450.0) 10^3/uL MPV 10.6 (7.0-11.0) fl Gran % (50.0-68.0) % Lymph % (Auto) (22.0-35.0) % [place] % (Auto) (1.0-6.0) % Eos % (Auto) (1.5-5.0) % Baso % (Auto) (0.0-3.0) % Gran # (1.4-6.5) Lymph # (1.2-3.4) [place] # (0.1-0.6) Eos # (0.0-0.7) Baso # (0.0-2.0) K/mm3 PT (9.9-11.8) Seconds INR (0.93-1.08) APTT (23.7-30.8) Seconds Sodium 139 (132-148) mmol/L Potassium 4.1 (3.6-5.0) mmol/L Chloride 104 (98-107) mmol/L Carbon Dioxide 24 (21-33) mmol/L Anion Gap 15 (10-20) BUN 13 (7-21) mg/dL Creatinine 0.5 L (0.7-1.2) mg/dL Est GFR ( Amer) > 60 Est GFR (Non-Af Amer) > 60 POC Glucose (mg/dL) (65-110) mg/dL Random Glucose 151 H (70-110) mg/dL Calcium 9.0 (8.4-10.5) mg/dL Total Bilirubin 0.8 (0.2-1.3) mg/dL AST 30 (14-36) U/L ALT 34 (7-56) U/L Alkaline Phosphatase 77 (38-126) U/L Troponin I 0.09 D ng/mL NT-Pro-B Natriuret Pep (0-450) pg/mL Total Protein 7.1 (5.8-8.3) g/dL Albumin 4.0 (3.0-4.8) g/dL Globulin 3.1 gm/dL Albumin/Globulin Ratio 1.3 (1.1-1.8) Triglycerides (35-160) mg/dL Cholesterol (130-200) mg/dL LDL Cholesterol Direct (0-129) mg/dL HDL Cholesterol (29-60) mg/dL TSH 3rd Generation (0.46-4.68) mIU/mL Urine Color Yellow (YELLOW) Urine Appearance Sl cloudy (CLEAR) Urine pH 6.0 (4.7-8.0) Ur Specific [place] 1.025 (1.005-1.035) Urine Protein Trace H (<30 mg/dL) mg/dL Urine Glucose (UA) Negative (NEGATIVE) mg/dL Urine Ketones Trace H (NEGATIVE) mg/dL Urine Blood Small H (NEGATIVE) Urine Nitrate Positive H (NEGATIVE) Urine Bilirubin Negative (NEGATIVE) Urine Urobilinogen 0.2 (<1 E.U./dL) E.U./dL Ur Leukocyte Esterase Negative (NEGATIVE) Ryan/uL Urine RBC 0 - 2 (0-2) /hpf Urine WBC 2 - 5 (0-6) /hpf Ur Epithelial Cells 0 - 2 (0-5) /hpf Urine Bacteria Few (NEG) 04/15/17 04/15/17 04/15/17 Range/Units 22:32 22:32 22:32 WBC (4.5-11.0) 10^3/ul RBC (3.5-6.1) 10^6/uL Hgb (12.0-16.0) g/dL Hct (36.0-48.0) % MCV (80.0-105.0) fl MCH (25.0-35.0) pg MCHC (31.0-37.0) g/dl RDW (11.5-14.5) % Plt Count (120.0-450.0) 10^3/uL MPV (7.0-11.0) fl Gran % (50.0-68.0) % Lymph % (Auto) (22.0-35.0) % [place] % (Auto) (1.0-6.0) % Eos % (Auto) (1.5-5.0) % Baso % (Auto) (0.0-3.0) % Gran # (1.4-6.5) Lymph # (1.2-3.4) [place] # (0.1-0.6) Eos # (0.0-0.7) Baso # (0.0-2.0) K/mm3 PT 11.2 (9.9-11.8) Seconds INR 1.04 (0.93-1.08) APTT 49.1 H (23.7-30.8) Seconds Sodium (132-148) mmol/L Potassium (3.6-5.0) mmol/L Chloride (98-107) mmol/L Carbon Dioxide (21-33) mmol/L Anion Gap (10-20) BUN (7-21) mg/dL Creatinine (0.7-1.2) mg/dL Est GFR ( Amer) Est GFR (Non-Af Amer) POC Glucose (mg/dL) (65-110) mg/dL Random Glucose (70-110) mg/dL Calcium (8.4-10.5) mg/dL Total Bilirubin (0.2-1.3) mg/dL AST (14-36) U/L ALT (7-56) U/L Alkaline Phosphatase (38-126) U/L Troponin I ng/mL NT-Pro-B Natriuret Pep 4790 H (0-450) pg/mL Total Protein (5.8-8.3) g/dL Albumin (3.0-4.8) g/dL Globulin gm/dL Albumin/Globulin Ratio (1.1-1.8) Triglycerides 43 (35-160) mg/dL Cholesterol 170 (130-200) mg/dL LDL Cholesterol Direct 119 (0-129) mg/dL HDL Cholesterol 46 (29-60) mg/dL TSH 3rd Generation 0.34 L (0.46-4.68) mIU/mL Urine Color (YELLOW) Urine Appearance (CLEAR) Urine pH (4.7-8.0) Ur Specific [place] (1.005-1.035) Urine Protein (<30 mg/dL) mg/dL Urine Glucose (UA) (NEGATIVE) mg/dL Urine Ketones (NEGATIVE) mg/dL Urine Blood (NEGATIVE) Urine Nitrate (NEGATIVE) Urine Bilirubin (NEGATIVE) Urine Urobilinogen (<1 E.U./dL) E.U./dL Ur Leukocyte Esterase (NEGATIVE) Ryan/uL Urine RBC (0-2) /hpf Urine WBC (0-6) /hpf Ur Epithelial Cells (0-5) /hpf Urine Bacteria (NEG) 04/15/17 04/15/17 Range/Units 22:32 21:57 WBC 10.3 (4.5-11.0) 10^3/ul RBC 4.47 (3.5-6.1) 10^6/uL Hgb 12.9 (12.0-16.0) g/dL Hct 39.4 (36.0-48.0) % MCV 88.1 (80.0-105.0) fl MCH 28.9 (25.0-35.0) pg MCHC 32.7 (31.0-37.0) g/dl RDW 16.0 H (11.5-14.5) % Plt Count 223 (120.0-450.0) 10^3/uL MPV 9.9 (7.0-11.0) fl Gran % 87.2 H (50.0-68.0) % Lymph % (Auto) 9.5 L (22.0-35.0) % [place] % (Auto) 3.3 (1.0-6.0) % Eos % (Auto) 0.0 L (1.5-5.0) % Baso % (Auto) 0.0 (0.0-3.0) % Gran # 8.96 H (1.4-6.5) Lymph # 1.0 L (1.2-3.4) [place] # 0.3 (0.1-0.6) Eos # 0.0 (0.0-0.7) Baso # 0.00 (0.0-2.0) K/mm3 PT (9.9-11.8) Seconds INR (0.93-1.08) APTT (23.7-30.8) Seconds Sodium (132-148) mmol/L Potassium (3.6-5.0) mmol/L Chloride (98-107) mmol/L Carbon Dioxide (21-33) mmol/L Anion Gap (10-20) BUN (7-21) mg/dL Creatinine (0.7-1.2) mg/dL Est GFR ( Amer) Est GFR (Non-Af Amer) POC Glucose (mg/dL) 135 H (65-110) mg/dL Random Glucose (70-110) mg/dL Calcium (8.4-10.5) mg/dL Total Bilirubin (0.2-1.3) mg/dL AST (14-36) U/L ALT (7-56) U/L Alkaline Phosphatase (38-126) U/L Troponin I ng/mL NT-Pro-B Natriuret Pep (0-450) pg/mL Total Protein (5.8-8.3) g/dL Albumin (3.0-4.8) g/dL Globulin gm/dL Albumin/Globulin Ratio (1.1-1.8) Triglycerides (35-160) mg/dL Cholesterol (130-200) mg/dL LDL Cholesterol Direct (0-129) mg/dL HDL Cholesterol (29-60) mg/dL TSH 3rd Generation (0.46-4.68) mIU/mL Urine Color (YELLOW) Urine Appearance (CLEAR) Urine pH (4.7-8.0) Ur Specific [place] (1.005-1.035) Urine Protein (<30 mg/dL) mg/dL Urine Glucose (UA) (NEGATIVE) mg/dL Urine Ketones (NEGATIVE) mg/dL Urine Blood (NEGATIVE) Urine Nitrate (NEGATIVE) Urine Bilirubin (NEGATIVE) Urine Urobilinogen (<1 E.U./dL) E.U./dL Ur Leukocyte Esterase (NEGATIVE) Ryan/uL Urine RBC (0-2) /hpf Urine WBC (0-6) /hpf Ur Epithelial Cells (0-5) /hpf Urine Bacteria (NEG) Laboratory Results - last 24 hr 04/15/17 04/15/17 04/15/17 21:57 22:32 22:32 WBC 10.3 RBC 4.47 Hgb 12.9 Hct 39.4 MCV 88.1 MCH 28.9 MCHC 32.7 RDW 16.0 H Plt Count 223 MPV 9.9 Gran % 87.2 H Lymph % (Auto) 9.5 L [place] % (Auto) 3.3 Eos % (Auto) 0.0 L Baso % (Auto) 0.0 Gran # 8.96 H Lymph # 1.0 L [place] # 0.3 Eos # 0.0 Baso # 0.00 PT 11.2 INR 1.04 APTT 49.1 H Sodium Potassium Chloride Carbon Dioxide Anion Gap BUN Creatinine Est GFR ( Amer) Est GFR (Non-Af Amer) POC Glucose (mg/dL) 135 H Random Glucose Calcium Total Bilirubin AST ALT Alkaline Phosphatase Troponin I NT-Pro-B Natriuret Pep Total Protein Albumin Globulin Albumin/Globulin Ratio Triglycerides Cholesterol LDL Cholesterol Direct HDL Cholesterol TSH 3rd Generation Urine Color Urine Appearance Urine pH Ur Specific [place] Urine Protein Urine Glucose (UA) Urine Ketones Urine Blood Urine Nitrate Urine Bilirubin Urine Urobilinogen Ur Leukocyte Esterase Urine RBC Urine WBC Ur Epithelial Cells Urine Bacteria 04/15/17 04/15/17 04/16/17 22:32 22:32 04:00 WBC 12.7 H D RBC 4.46 Hgb 12.7 Hct 39.4 MCV 88.3 MCH 28.5 MCHC 32.2 RDW 16.1 H Plt Count 225 MPV 10.6 Gran % Lymph % (Auto) [place] % (Auto) Eos % (Auto) Baso % (Auto) Gran # Lymph # [place] # Eos # Baso # PT INR APTT Sodium Potassium Chloride Carbon Dioxide Anion Gap BUN Creatinine Est GFR ( Amer) Est GFR (Non-Af Amer) POC Glucose (mg/dL) Random Glucose Calcium Total Bilirubin AST ALT Alkaline Phosphatase Troponin I NT-Pro-B Natriuret Pep 4790 H Total Protein Albumin Globulin Albumin/Globulin Ratio Triglycerides 43 Cholesterol 170 LDL Cholesterol Direct 119 HDL Cholesterol 46 TSH 3rd Generation 0.34 L Urine Color Urine Appearance Urine pH Ur Specific [place] Urine Protein Urine Glucose (UA) Urine Ketones Urine Blood Urine Nitrate Urine Bilirubin Urine Urobilinogen Ur Leukocyte Esterase Urine RBC Urine WBC Ur Epithelial Cells Urine Bacteria 04/16/17 04/16/17 04:00 09:50 WBC RBC Hgb Hct MCV MCH MCHC RDW Plt Count MPV Gran % Lymph % (Auto) [place] % (Auto) Eos % (Auto) Baso % (Auto) Gran # Lymph # [place] # Eos # Baso # PT INR APTT Sodium 139 Potassium 4.1 Chloride 104 Carbon Dioxide 24 Anion Gap 15 BUN 13 Creatinine 0.5 L Est GFR ( Amer) > 60 Est GFR (Non-Af Amer) > 60 POC Glucose (mg/dL) Random Glucose 151 H Calcium 9.0 Total Bilirubin 0.8 AST 30 ALT 34 Alkaline Phosphatase 77 Troponin I 0.09 D NT-Pro-B Natriuret Pep Total Protein 7.1 Albumin 4.0 Globulin 3.1 Albumin/Globulin Ratio 1.3 Triglycerides Cholesterol LDL Cholesterol Direct HDL Cholesterol TSH 3rd Generation Urine Color Yellow Urine Appearance Sl cloudy Urine pH 6.0 Ur Specific [place] 1.025 Urine Protein Trace H Urine Glucose (UA) Negative Urine Ketones Trace H Urine Blood Small H Urine Nitrate Positive H Urine Bilirubin Negative Urine Urobilinogen 0.2 Ur Leukocyte Esterase Negative Urine RBC 0 - 2 Urine WBC 2 - 5 Ur Epithelial Cells 0 - 2 Urine Bacteria Few EKG/Cardiology Studies: Cardiology / EKG Studies 04/16/17 04:02 EKG [ELECTROCARDIOGRAM] Stat Comment: Reason For Exam: eval for vtach and ACS 04/16/17 08:53 EKG [ELECTROCARDIOGRAM] Stat Comment: Reason For Exam: post arrest Fingerstick Blood Sugar Results: 109 Review of Systems - Review of Systems Review of Systems: 12 point ROS negative otherwise what is mentioned in HPI Critical Care Progress Note - Nutrition Nutrition: Nutrition Category Date Time Status Heart Healthy Diet [DIET] Diets 04/15/17 Dinner Ordered Assessment/Plan - Assessment and Plan (Free Text) Assessment: 62 year old female with PMH of hemorrhagic cystitis from NSAIDs, osteoporosis, seasonal allergies, S/P cystoscopy was brought in to [facility] after she apparently had ventricular tachycardia and cardiac arrest requiring CPR in the field. Patient is s/p LHC with cardiology showing no significant lesion. Plan: Neuro: Stable, AAOx3 Pulm: O2 NC, Maintain SaO2 >92% CVS: STEMI s/p LHC - Curbside with cardio reporting no significant lesion - Troponin 0.13, 0.09, continue to monitor - Amiodarone gtt now, will plan to transition to PO when stable - Lopressor - Echocardiogram for evaluation of EF and wall motion abnormalities - Electrophysiology consulted appreciate recs - Cardiology consulted and following Echo showing EF of 15% concern for Takotsubo cardiomyopathy vs. Myocarditis - ID consult, coxsackie virus, CMV titers to be ordered GI: Stable, Protonix for GI ppx Renal: Hx of hemorrhagic cystitis IVF maintenance Monitor and replace electrolytes as necessary Maintain euvolemia, monitor I&O's ID: Stable, Afebrile, Slight leukocytosis at 12.7 ID consulted and following Blood, Urine, Sputum cultures Procalcitonin Heme: H/H stable Continue to monitor SCDs for DVT ppx Case and plan discussed with attending - Date & Time Date: 04/16/17 Time: 10:22 <Jewell POMPA,Haydee H - Last Filed: 04/16/17 17:33> CCU Objective - Vital Signs / Intake & Output Vital Signs (Last 4 hours): Vital Signs Pulse Resp BP Pulse Ox 04/16/17 17:20 79 120/77 04/16/17 17:13 79 120/77 04/16/17 16:10 81 25 H 100 04/16/17 16:00 85 124/96 H 98 04/16/17 15:50 82 100 04/16/17 15:40 75 25 H 100 04/16/17 15:30 81 28 H 100 04/16/17 15:20 77 26 H 85 L 04/16/17 15:10 80 21 79 L 04/16/17 15:00 78 48 H 121/74 99 04/16/17 14:50 79 15 99 04/16/17 14:40 81 22 90 L 04/16/17 14:30 71 26 H 100 04/16/17 14:20 72 23 100 04/16/17 14:10 69 24 100 04/16/17 14:00 72 25 H 116/75 98 04/16/17 13:50 85 24 93 L 04/16/17 13:40 72 23 98 04/16/17 13:30 79 22 99 Intake and Output (Last 8hrs): Intake & Output 04/16/17 04/16/17 04/16/17 06:59 14:59 22:59 Intake Total 1230 Output Total 125 Balance 1105 Weight 169 lb Intake: IV 1030 Left Antecubital 1030 Right Antecubital 0 Oral 200 Output: Urine 125 Urine, Voided 125 Other: # Bowel Movements 0 - Medications Active Medications: Active Medications Generic Name Dose Route Start Last Admin Trade Name Freq PRN Reason Stop Dose Admin Amiodarone HCl 800 mg 04/16/17 10:00 04/16/17 17:20 Cordarone PO 800 mg BID JENA Administration Amiodarone HCl/Dextrose 360 mg in 200 mls @ 33.333 mls/hr 04/16/17 02:15 13:51 Nexterone 360 Mg In D5w 200 Ml (Premix) IV 33.333 mls/hr .Q6H JENA Administration Protocol 1 MG/MIN Insulin Human Regular 0 units 04/15/17 22:00 04/16/17 16:28 Humulin R High SC Not Given ACHS JENA Protocol Metoprolol Tartrate 25 mg 04/15/17 21:30 04/16/17 17:13 Lopressor PO 25 mg BID JENA Administration Oxycodone/Acetaminophen 1 tab 04/15/17 21:31 04/16/17 05:05 Percocet 5/325 Mg Tab PO 04/18/17 21:32 1 tab Q4H PRN Administration Pain, severe (8-10) Pantoprazole Sodium 40 mg 04/16/17 13:15 04/16/17 13:49 Protonix Inj IVP 40 mg DAILY JENA Administration Potassium Chloride 10 meq 04/16/17 08:00 04/16/17 07:49 Klor-Con 10 PO 10 meq BRK JENA Administration - Patient Studies Lab Studies: Lab Studies 04/16/17 04/16/17 04/16/17 Range/Units 16:03 14:07 10:15 WBC (4.5-11.0) 10^3/ul RBC (3.5-6.1) 10^6/uL Hgb (12.0-16.0) g/dL Hct (36.0-48.0) % MCV (80.0-105.0) fl MCH (25.0-35.0) pg MCHC (31.0-37.0) g/dl RDW (11.5-14.5) % Plt Count (120.0-450.0) 10^3/uL MPV (7.0-11.0) fl Gran % (50.0-68.0) % Lymph % (Auto) (22.0-35.0) % [place] % (Auto) (1.0-6.0) % Eos % (Auto) (1.5-5.0) % Baso % (Auto) (0.0-3.0) % Gran # (1.4-6.5) Lymph # (1.2-3.4) [place] # (0.1-0.6) Eos # (0.0-0.7) Baso # (0.0-2.0) K/mm3 PT (9.9-11.8) Seconds INR (0.93-1.08) APTT (23.7-30.8) Seconds Sodium (132-148) mmol/L Potassium (3.6-5.0) mmol/L Chloride (98-107) mmol/L Carbon Dioxide (21-33) mmol/L Anion Gap (10-20) BUN (7-21) mg/dL Creatinine (0.7-1.2) mg/dL Est GFR ( Amer) Est GFR (Non-Af Amer) POC Glucose (mg/dL) 129 H 113 H (65-110) mg/dL Random Glucose (70-110) mg/dL Hemoglobin A1c (4.2-6.5) % Calcium (8.4-10.5) mg/dL Total Bilirubin (0.2-1.3) mg/dL AST (14-36) U/L ALT (7-56) U/L Alkaline Phosphatase (38-126) U/L Troponin I 0.06 D ng/mL NT-Pro-B Natriuret Pep (0-450) pg/mL Total Protein (5.8-8.3) g/dL Albumin (3.0-4.8) g/dL Globulin gm/dL Albumin/Globulin Ratio (1.1-1.8) Triglycerides (35-160) mg/dL Cholesterol (130-200) mg/dL LDL Cholesterol Direct (0-129) mg/dL HDL Cholesterol (29-60) mg/dL TSH 3rd Generation (0.46-4.68) mIU/mL Urine Color (YELLOW) Urine Appearance (CLEAR) Urine pH (4.7-8.0) Ur Specific [place] (1.005-1.035) Urine Protein (<30 mg/dL) mg/dL Urine Glucose (UA) (NEGATIVE) mg/dL Urine Ketones (NEGATIVE) mg/dL Urine Blood (NEGATIVE) Urine Nitrate (NEGATIVE) Urine Bilirubin (NEGATIVE) Urine Urobilinogen (<1 E.U./dL) E.U./dL Ur Leukocyte Esterase (NEGATIVE) Ryan/uL Urine RBC (0-2) /hpf Urine WBC (0-6) /hpf Ur Epithelial Cells (0-5) /hpf Urine Bacteria (NEG) 04/16/17 04/16/17 04/16/17 Range/Units 09:50 07:44 04:00 WBC (4.5-11.0) 10^3/ul RBC (3.5-6.1) 10^6/uL Hgb (12.0-16.0) g/dL Hct (36.0-48.0) % MCV (80.0-105.0) fl MCH (25.0-35.0) pg MCHC (31.0-37.0) g/dl RDW (11.5-14.5) % Plt Count (120.0-450.0) 10^3/uL MPV (7.0-11.0) fl Gran % (50.0-68.0) % Lymph % (Auto) (22.0-35.0) % [place] % (Auto) (1.0-6.0) % Eos % (Auto) (1.5-5.0) % Baso % (Auto) (0.0-3.0) % Gran # (1.4-6.5) Lymph # (1.2-3.4) [place] # (0.1-0.6) Eos # (0.0-0.7) Baso # (0.0-2.0) K/mm3 PT (9.9-11.8) Seconds INR (0.93-1.08) APTT (23.7-30.8) Seconds Sodium 139 (132-148) mmol/L Potassium 4.1 (3.6-5.0) mmol/L Chloride 104 (98-107) mmol/L Carbon Dioxide 24 (21-33) mmol/L Anion Gap 15 (10-20) BUN 13 (7-21) mg/dL Creatinine 0.5 L (0.7-1.2) mg/dL Est GFR ( Amer) > 60 Est GFR (Non-Af Amer) > 60 POC Glucose (mg/dL) 109 (65-110) mg/dL Random Glucose 151 H (70-110) mg/dL Hemoglobin A1c (4.2-6.5) % Calcium 9.0 (8.4-10.5) mg/dL Total Bilirubin 0.8 (0.2-1.3) mg/dL AST 30 (14-36) U/L ALT 34 (7-56) U/L Alkaline Phosphatase 77 (38-126) U/L Troponin I 0.09 D ng/mL NT-Pro-B Natriuret Pep (0-450) pg/mL Total Protein 7.1 (5.8-8.3) g/dL Albumin 4.0 (3.0-4.8) g/dL Globulin 3.1 gm/dL Albumin/Globulin Ratio 1.3 (1.1-1.8) Triglycerides (35-160) mg/dL Cholesterol (130-200) mg/dL LDL Cholesterol Direct (0-129) mg/dL HDL Cholesterol (29-60) mg/dL TSH 3rd Generation (0.46-4.68) mIU/mL Urine Color Yellow (YELLOW) Urine Appearance Sl cloudy (CLEAR) Urine pH 6.0 (4.7-8.0) Ur Specific [place] 1.025 (1.005-1.035) Urine Protein Trace H (<30 mg/dL) mg/dL Urine Glucose (UA) Negative (NEGATIVE) mg/dL Urine Ketones Trace H (NEGATIVE) mg/dL Urine Blood Small H (NEGATIVE) Urine Nitrate Positive H (NEGATIVE) Urine Bilirubin Negative (NEGATIVE) Urine Urobilinogen 0.2 (<1 E.U./dL) E.U./dL Ur Leukocyte Esterase Negative (NEGATIVE) Ryan/uL Urine RBC 0 - 2 (0-2) /hpf Urine WBC 2 - 5 (0-6) /hpf Ur Epithelial Cells 0 - 2 (0-5) /hpf Urine Bacteria Few (NEG) 04/16/17 04/15/17 04/15/17 Range/Units 04:00 22:32 22:32 WBC 12.7 H D (4.5-11.0) 10^3/ul RBC 4.46 (3.5-6.1) 10^6/uL Hgb 12.7 (12.0-16.0) g/dL Hct 39.4 (36.0-48.0) % MCV 88.3 (80.0-105.0) fl MCH 28.5 (25.0-35.0) pg MCHC 32.2 (31.0-37.0) g/dl RDW 16.1 H (11.5-14.5) % Plt Count 225 (120.0-450.0) 10^3/uL MPV 10.6 (7.0-11.0) fl Gran % (50.0-68.0) % Lymph % (Auto) (22.0-35.0) % [place] % (Auto) (1.0-6.0) % Eos % (Auto) (1.5-5.0) % Baso % (Auto) (0.0-3.0) % Gran # (1.4-6.5) Lymph # (1.2-3.4) [place] # (0.1-0.6) Eos # (0.0-0.7) Baso # (0.0-2.0) K/mm3 PT (9.9-11.8) Seconds INR (0.93-1.08) APTT (23.7-30.8) Seconds Sodium (132-148) mmol/L Potassium (3.6-5.0) mmol/L Chloride (98-107) mmol/L Carbon Dioxide (21-33) mmol/L Anion Gap (10-20) BUN (7-21) mg/dL Creatinine (0.7-1.2) mg/dL Est GFR ( Amer) Est GFR (Non-Af Amer) POC Glucose (mg/dL) (65-110) mg/dL Random Glucose (70-110) mg/dL Hemoglobin A1c 5.9 (4.2-6.5) % Calcium (8.4-10.5) mg/dL Total Bilirubin (0.2-1.3) mg/dL AST (14-36) U/L ALT (7-56) U/L Alkaline Phosphatase (38-126) U/L Troponin I ng/mL NT-Pro-B Natriuret Pep (0-450) pg/mL Total Protein (5.8-8.3) g/dL Albumin (3.0-4.8) g/dL Globulin gm/dL Albumin/Globulin Ratio (1.1-1.8) Triglycerides (35-160) mg/dL Cholesterol (130-200) mg/dL LDL Cholesterol Direct (0-129) mg/dL HDL Cholesterol (29-60) mg/dL TSH 3rd Generation 0.34 L (0.46-4.68) mIU/mL Urine Color (YELLOW) Urine Appearance (CLEAR) Urine pH (4.7-8.0) Ur Specific [place] (1.005-1.035) Urine Protein (<30 mg/dL) mg/dL Urine Glucose (UA) (NEGATIVE) mg/dL Urine Ketones (NEGATIVE) mg/dL Urine Blood (NEGATIVE) Urine Nitrate (NEGATIVE) Urine Bilirubin (NEGATIVE) Urine Urobilinogen (<1 E.U./dL) E.U./dL Ur Leukocyte Esterase (NEGATIVE) Ryan/uL Urine RBC (0-2) /hpf Urine WBC (0-6) /hpf Ur Epithelial Cells (0-5) /hpf Urine Bacteria (NEG) 04/15/17 04/15/17 04/15/17 Range/Units 22:32 22:32 22:32 WBC 10.3 (4.5-11.0) 10^3/ul RBC 4.47 (3.5-6.1) 10^6/uL Hgb 12.9 (12.0-16.0) g/dL Hct 39.4 (36.0-48.0) % MCV 88.1 (80.0-105.0) fl MCH 28.9 (25.0-35.0) pg MCHC 32.7 (31.0-37.0) g/dl RDW 16.0 H (11.5-14.5) % Plt Count 223 (120.0-450.0) 10^3/uL MPV 9.9 (7.0-11.0) fl Gran % 87.2 H (50.0-68.0) % Lymph % (Auto) 9.5 L (22.0-35.0) % [place] % (Auto) 3.3 (1.0-6.0) % Eos % (Auto) 0.0 L (1.5-5.0) % Baso % (Auto) 0.0 (0.0-3.0) % Gran # 8.96 H (1.4-6.5) Lymph # 1.0 L (1.2-3.4) [place] # 0.3 (0.1-0.6) Eos # 0.0 (0.0-0.7) Baso # 0.00 (0.0-2.0) K/mm3 PT 11.2 (9.9-11.8) Seconds INR 1.04 (0.93-1.08) APTT 49.1 H (23.7-30.8) Seconds Sodium (132-148) mmol/L Potassium (3.6-5.0) mmol/L Chloride (98-107) mmol/L Carbon Dioxide (21-33) mmol/L Anion Gap (10-20) BUN (7-21) mg/dL Creatinine (0.7-1.2) mg/dL Est GFR ( Amer) Est GFR (Non-Af Amer) POC Glucose (mg/dL) (65-110) mg/dL Random Glucose (70-110) mg/dL Hemoglobin A1c (4.2-6.5) % Calcium (8.4-10.5) mg/dL Total Bilirubin (0.2-1.3) mg/dL AST (14-36) U/L ALT (7-56) U/L Alkaline Phosphatase (38-126) U/L Troponin I ng/mL NT-Pro-B Natriuret Pep 4790 H (0-450) pg/mL Total Protein (5.8-8.3) g/dL Albumin (3.0-4.8) g/dL Globulin gm/dL Albumin/Globulin Ratio (1.1-1.8) Triglycerides 43 (35-160) mg/dL Cholesterol 170 (130-200) mg/dL LDL Cholesterol Direct 119 (0-129) mg/dL HDL Cholesterol 46 (29-60) mg/dL TSH 3rd Generation (0.46-4.68) mIU/mL Urine Color (YELLOW) Urine Appearance (CLEAR) Urine pH (4.7-8.0) Ur Specific [place] (1.005-1.035) Urine Protein (<30 mg/dL) mg/dL Urine Glucose (UA) (NEGATIVE) mg/dL Urine Ketones (NEGATIVE) mg/dL Urine Blood (NEGATIVE) Urine Nitrate (NEGATIVE) Urine Bilirubin (NEGATIVE) Urine Urobilinogen (<1 E.U./dL) E.U./dL Ur Leukocyte Esterase (NEGATIVE) Ryan/uL Urine RBC (0-2) /hpf Urine WBC (0-6) /hpf Ur Epithelial Cells (0-5) /hpf Urine Bacteria (NEG) 04/15/17 Range/Units 21:57 WBC (4.5-11.0) 10^3/ul RBC (3.5-6.1) 10^6/uL Hgb (12.0-16.0) g/dL Hct (36.0-48.0) % MCV (80.0-105.0) fl MCH (25.0-35.0) pg MCHC (31.0-37.0) g/dl RDW (11.5-14.5) % Plt Count (120.0-450.0) 10^3/uL MPV (7.0-11.0) fl Gran % (50.0-68.0) % Lymph % (Auto) (22.0-35.0) % [place] % (Auto) (1.0-6.0) % Eos % (Auto) (1.5-5.0) % Baso % (Auto) (0.0-3.0) % Gran # (1.4-6.5) Lymph # (1.2-3.4) [place] # (0.1-0.6) Eos # (0.0-0.7) Baso # (0.0-2.0) K/mm3 PT (9.9-11.8) Seconds INR (0.93-1.08) APTT (23.7-30.8) Seconds Sodium (132-148) mmol/L Potassium (3.6-5.0) mmol/L Chloride (98-107) mmol/L Carbon Dioxide (21-33) mmol/L Anion Gap (10-20) BUN (7-21) mg/dL Creatinine (0.7-1.2) mg/dL Est GFR ( Amer) Est GFR (Non-Af Amer) POC Glucose (mg/dL) 135 H (65-110) mg/dL Random Glucose (70-110) mg/dL Hemoglobin A1c (4.2-6.5) % Calcium (8.4-10.5) mg/dL Total Bilirubin (0.2-1.3) mg/dL AST (14-36) U/L ALT (7-56) U/L Alkaline Phosphatase (38-126) U/L Troponin I ng/mL NT-Pro-B Natriuret Pep (0-450) pg/mL Total Protein (5.8-8.3) g/dL Albumin (3.0-4.8) g/dL Globulin gm/dL Albumin/Globulin Ratio (1.1-1.8) Triglycerides (35-160) mg/dL Cholesterol (130-200) mg/dL LDL Cholesterol Direct (0-129) mg/dL HDL Cholesterol (29-60) mg/dL TSH 3rd Generation (0.46-4.68) mIU/mL Urine Color (YELLOW) Urine Appearance (CLEAR) Urine pH (4.7-8.0) Ur Specific [place] (1.005-1.035) Urine Protein (<30 mg/dL) mg/dL Urine Glucose (UA) (NEGATIVE) mg/dL Urine Ketones (NEGATIVE) mg/dL Urine Blood (NEGATIVE) Urine Nitrate (NEGATIVE) Urine Bilirubin (NEGATIVE) Urine Urobilinogen (<1 E.U./dL) E.U./dL Ur Leukocyte Esterase (NEGATIVE) Ryan/uL Urine RBC (0-2) /hpf Urine WBC (0-6) /hpf Ur Epithelial Cells (0-5) /hpf Urine Bacteria (NEG) Laboratory Results - last 24 hr 04/15/17 04/15/17 04/15/17 21:57 22:32 22:32 WBC 10.3 RBC 4.47 Hgb 12.9 Hct 39.4 MCV 88.1 MCH 28.9 MCHC 32.7 RDW 16.0 H Plt Count 223 MPV 9.9 Gran % 87.2 H Lymph % (Auto) 9.5 L [place] % (Auto) 3.3 Eos % (Auto) 0.0 L Baso % (Auto) 0.0 Gran # 8.96 H Lymph # 1.0 L [place] # 0.3 Eos # 0.0 Baso # 0.00 PT 11.2 INR 1.04 APTT 49.1 H Sodium Potassium Chloride Carbon Dioxide Anion Gap BUN Creatinine Est GFR ( Amer) Est GFR (Non-Af Amer) POC Glucose (mg/dL) 135 H Random Glucose Hemoglobin A1c Calcium Total Bilirubin AST ALT Alkaline Phosphatase Troponin I NT-Pro-B Natriuret Pep Total Protein Albumin Globulin Albumin/Globulin Ratio Triglycerides Cholesterol LDL Cholesterol Direct HDL Cholesterol TSH 3rd Generation Urine Color Urine Appearance Urine pH Ur Specific [place] Urine Protein Urine Glucose (UA) Urine Ketones Urine Blood Urine Nitrate Urine Bilirubin Urine Urobilinogen Ur Leukocyte Esterase Urine RBC Urine WBC Ur Epithelial Cells Urine Bacteria 04/15/17 04/15/17 04/15/17 22:32 22:32 22:32 WBC RBC Hgb Hct MCV MCH MCHC RDW Plt Count MPV Gran % Lymph % (Auto) [place] % (Auto) Eos % (Auto) Baso % (Auto) Gran # Lymph # [place] # Eos # Baso # PT INR APTT Sodium Potassium Chloride Carbon Dioxide Anion Gap BUN Creatinine Est GFR ( Amer) Est GFR (Non-Af Amer) POC Glucose (mg/dL) Random Glucose Hemoglobin A1c 5.9 Calcium Total Bilirubin AST ALT Alkaline Phosphatase Troponin I NT-Pro-B Natriuret Pep 4790 H Total Protein Albumin Globulin Albumin/Globulin Ratio Triglycerides 43 Cholesterol 170 LDL Cholesterol Direct 119 HDL Cholesterol 46 TSH 3rd Generation 0.34 L Urine Color Urine Appearance Urine pH Ur Specific [place] Urine Protein Urine Glucose (UA) Urine Ketones Urine Blood Urine Nitrate Urine Bilirubin Urine Urobilinogen Ur Leukocyte Esterase Urine RBC Urine WBC Ur Epithelial Cells Urine Bacteria 04/16/17 04/16/17 04/16/17 04:00 04:00 07:44 WBC 12.7 H D RBC 4.46 Hgb 12.7 Hct 39.4 MCV 88.3 MCH 28.5 MCHC 32.2 RDW 16.1 H Plt Count 225 MPV 10.6 Gran % Lymph % (Auto) [place] % (Auto) Eos % (Auto) Baso % (Auto) Gran # Lymph # [place] # Eos # Baso # PT INR APTT Sodium 139 Potassium 4.1 Chloride 104 Carbon Dioxide 24 Anion Gap 15 BUN 13 Creatinine 0.5 L Est GFR ( Amer) > 60 Est GFR (Non-Af Amer) > 60 POC Glucose (mg/dL) 109 Random Glucose 151 H Hemoglobin A1c Calcium 9.0 Total Bilirubin 0.8 AST 30 ALT 34 Alkaline Phosphatase 77 Troponin I 0.09 D NT-Pro-B Natriuret Pep Total Protein 7.1 Albumin 4.0 Globulin 3.1 Albumin/Globulin Ratio 1.3 Triglycerides Cholesterol LDL Cholesterol Direct HDL Cholesterol TSH 3rd Generation Urine Color Urine Appearance Urine pH Ur Specific [place] Urine Protein Urine Glucose (UA) Urine Ketones Urine Blood Urine Nitrate Urine Bilirubin Urine Urobilinogen Ur Leukocyte Esterase Urine RBC Urine WBC Ur Epithelial Cells Urine Bacteria 04/16/17 04/16/17 04/16/17 09:50 10:15 14:07 WBC RBC Hgb Hct MCV MCH MCHC RDW Plt Count MPV Gran % Lymph % (Auto) [place] % (Auto) Eos % (Auto) Baso % (Auto) Gran # Lymph # [place] # Eos # Baso # PT INR APTT Sodium Potassium Chloride Carbon Dioxide Anion Gap BUN Creatinine Est GFR ( Amer) Est GFR (Non-Af Amer) POC Glucose (mg/dL) 113 H Random Glucose Hemoglobin A1c Calcium Total Bilirubin AST ALT Alkaline Phosphatase Troponin I 0.06 D NT-Pro-B Natriuret Pep Total Protein Albumin Globulin Albumin/Globulin Ratio Triglycerides Cholesterol LDL Cholesterol Direct HDL Cholesterol TSH 3rd Generation Urine Color Yellow Urine Appearance Sl cloudy Urine pH 6.0 Ur Specific [place] 1.025 Urine Protein Trace H Urine Glucose (UA) Negative Urine Ketones Trace H Urine Blood Small H Urine Nitrate Positive H Urine Bilirubin Negative Urine Urobilinogen 0.2 Ur Leukocyte Esterase Negative Urine RBC 0 - 2 Urine WBC 2 - 5 Ur Epithelial Cells 0 - 2 Urine Bacteria Few 04/16/17 16:03 WBC RBC Hgb Hct MCV MCH MCHC RDW Plt Count MPV Gran % Lymph % (Auto) [place] % (Auto) Eos % (Auto) Baso % (Auto) Gran # Lymph # [place] # Eos # Baso # PT INR APTT Sodium Potassium Chloride Carbon Dioxide Anion Gap BUN Creatinine Est GFR ( Amer) Est GFR (Non-Af Amer) POC Glucose (mg/dL) 129 H Random Glucose Hemoglobin A1c Calcium Total Bilirubin AST ALT Alkaline Phosphatase Troponin I NT-Pro-B Natriuret Pep Total Protein Albumin Globulin Albumin/Globulin Ratio Triglycerides Cholesterol LDL Cholesterol Direct HDL Cholesterol TSH 3rd Generation Urine Color Urine Appearance Urine pH Ur Specific [place] Urine Protein Urine Glucose (UA) Urine Ketones Urine Blood Urine Nitrate Urine Bilirubin Urine Urobilinogen Ur Leukocyte Esterase Urine RBC Urine WBC Ur Epithelial Cells Urine Bacteria EKG/Cardiology Studies: Cardiology / EKG Studies 04/16/17 04:02 EKG [ELECTROCARDIOGRAM] Stat Comment: Reason For Exam: eval for vtach and ACS 04/16/17 08:53 EKG [ELECTROCARDIOGRAM] Stat Comment: Reason For Exam: post arrest Critical Care Progress Note - Nutrition Nutrition: Nutrition Category Date Time Status Heart Healthy Diet [DIET] Diets 04/15/17 Dinner Ordered Attending/Attestation - Attestation I have personally seen and examined this patient.: Yes I have reviewed all pertinent clinical information: Yes Notes (Text): 04/16/17 17:26 62 y/o w/ syncope and arrest secondary to possible VT/ V FIB. On amiodarone w/ PVC and V tachy. Bolus given / p.o and IV Asymptomatic . Unclear cause. Possibly Takotsubo? Myocarditis? Send titers for Coxsakie/ virus etc. Will likely need defib/ vest placed. EP consult pending. EF 15% on echo . dvt p cc time 55 min
[2017-04-16] MEDS ORDERED: Amiodarone 150 mg/D5W 100 ml 150 MG/100 ML BAG ONE (10:31)
[2017-04-16] MEDS ORDERED: Amiodarone 150 mg/D5W 100 ml 150 MG/100 ML BAG IVPB ONE (10:39)
--- NOTE | 2017-04-16 10:50 | PN ---
DATE: 04/16/2017 CARDIOLOGY FOLLOWUP NOTE SUBJECTIVE: The patient is feeling better today. She had two episodes of nonsustained VT through the night which corrected after replacing potassium. PHYSICAL EXAMINATION: VITAL SIGNS: Blood pressure is 111/66 and the heart rate is in the 70s. NECK: Negative JVD. LUNGS: Without rales. HEART: Reveals S1 and S2. EXTREMITIES: The right groin site is stable. LABORATORY DATA: Potassium is 4.1. Calcium is now up to 9. The troponin is down to 0.09. The hemoglobin is 12.7. IMPRESSION 1. Status post cardiac arrest. 2. Status post ventricular tachycardia. 3. Dilated cardiomyopathy consistent with Takotsubo cardiomyopathy. 4. Hypokalemia. 5. Hypocalcemia. PLAN: Given these findings, we will change her amiodarone to p.o. amiodarone. I have consulted Dr. Helton for a EP consultation. Philip Gillespie MD
--- NOTE | 2017-04-16 11:18 | HP ---
HISTORY OF PRESENT ILLNESS: I was called up to the emergency room for [facility] to see Lana Hemphill to being prepped for cardiac cath with Dr. Gillespie. She was transferred from another facility after a cardiac arrest. She had a syncopal episode earlier. EKG showed ST segment elevation DE. The patient was defibrillated and started on amiodarone. [facility] was activated. Apparently, she had chest compressions. She is fairly comfortable now, but very sore on the chest, awaiting cardiac cath with Dr. Gillespie. PAST MEDICAL HISTORY: No known medical history. She is young, says she is 62 years old, does not look 62. FAMILY HISTORY: No known family history. ALLERGIES: SHE HAS ALLERGIES TO LATEX AND PINEAPPLE. REVIEW OF SYSTEMS: From what she remembers, she has chest pain for compressions. No fever or night sweats. No vision or hearing changes. No shortness of breath. Some chest pain. No abdominal pain, no nausea, vomiting, headache or dizziness. PHYSICAL EXAMINATION: GENERAL: She is talking to me. She is concerned. Nontoxic. Alert and oriented x3. VITAL SIGNS: She has a 98.2 temp, 83 pulse, 113/76 blood pressure, 18 respiratory rate, 99% O2 sat on room air. HEENT: Head is atraumatic and normocephalic. Extraocular muscles are intact. Pupils are equal and reactive to light. Membranes are moist. NECK: Supple. HEART: Regular rate. Normal S1 and S2. LUNGS: Decreased breath sounds. Clear to auscultation. ABDOMEN: Soft and nontender. NEUROLOGIC: GCS is 15. Cranial nerves II to XII grossly intact. Alert and oriented at this time. SKIN: Warm and dry. No apparent rashes or ulcers. LABORATORY DATA: She had 139 sodium, potassium 3.6, BUN 30, creatinine 0.5, GFR is greater than 60, sugar is 156, calcium 8, magnesium 2.5, total bili 0.78, AST is 38, ALT 30, alk phos is 82, lactate dehydrogenase is 507, total creatinine clearance is 130, troponin was elevated 0.13, total protein 6.6, albumin 3.8, globulin 2.8. 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 All notes are pending. She was brought for cardiac arrest. PLAN: Plan is to go for cardiac catheterization with Dr. Gillespie. I will put her on insulin coverage for now. Check her labs tomorrow. Hopefully, she will do well. She is heading towards cardiac cath. Roshan Armstrong DO
--- NOTE | 2017-04-16 14:11 | PN ---
DATE: SUBJECTIVE: I saw Lana in Intensive Care Unit. She went for cardiac catheterization last night. Apparently, there were no stents placed. She is currently on insulin coverage, potassium, Lopressor, Nexterone, which is amiodarone and Percocet for pain. She came in, she had a [facility]. She had compressions for STEMI and syncopal episode. PHYSICAL EXAMINATION: VITAL SIGNS: She has temperature 98.4, pulse 74, blood pressure 111/66, respiratory rate 20, O2 saturation 97% on room air. HEENT: Head is atraumatic, normocephalic. HEART: Regular rate. LUNGS: Decreased breath sounds, but clear. ABDOMEN: Soft. EXTREMITIES: No edema. MUSCULOSKELETAL: The chest is little bit sore from all the compression she had. LABORATORY DATA: She had blood test. She has white count 12.7, hemoglobin 12.7, hematocrit 39.4, and platelets 225. She has sodium 139, potassium 4.1, BUN is 13, creatinine 0.5, GFR is greater than 60, sugar is 151, calcium 9, total bilirubin 0.8, AST is 30, ALT is 35, alkaline phosphatase 77. Troponin came down to 0.09, total protein 7.1, and albumin is 4. She is being seen by Dr. Gillespie and the white count went elevated. I will call in Infectious Disease for their opinion. She is on amiodarone. Chest x-ray with no acute disease. Her coronary artery is unremarkable and watch her very comfortably in Intensive Care Unit. We will check her labs tomorrow and I am going to get Infectious Disease to give me their opinion over the white count, otherwise it could be stress related. Roshan Armstrong DO
--- NOTE | 2017-04-16 15:12 | CARD ---
APPROVED REPORT EXAM: Two-dimensional and M-mode echocardiogram with Doppler and color Doppler. INDICATION s/p cardiac arrest 2D DIMENSIONS IVSd1.3 (0.7-1.1cm)LVDd5.6 (3.9-5.9cm) PWd1.3 (0.7-1.1cm)LVDs5.1 (2.5-4.0cm) FS (%) 10.0 %LVEF (%)21.3 (>50%) M-Mode DIMENSIONS Aortic Root3.20 (2.2-3.7cm)Aortic Cusp Exc.1.80 (1.5-2.0cm) Aortic Valve AoV Peak Ltjfmbce564.0cm/Ramone Peak GR.7mmHg Mitral Valve MV E Dlmxluse11.8cm/sMV A Dlyfvnqk62.7cm/sE/A ratio0.6 TDI Lateral E' Peak V5.95cm/sMedial E' Peak V4.87cm/sE/Lateral E'9.5 E/Medial E'11.7 Pulmonary Valve PV Peak Fxykwoyz66.7cm/sPV Peak Grad.1mmHg Tricuspid Valve TR Peak Irhbmqlr725yd/sRAP [id number] Peak Gr.13mmHg [id number] LEFT VENTRICLE The Left Ventricle is borderline dilated. There is borderline concentric left ventricular hypertrophy. The systolic function is severely impaired. Sever Apical and infero-lateral hypokinesis Transmitral Doppler flow pattern is Grade I-abnormal relaxation pattern. RIGHT VENTRICLE The right ventricle is normal size. There is normal right ventricular wall thickness. The right ventricular systolic function is normal. ATRIA The left atrium size is normal. The right atrium size is normal. AORTIC VALVE The aortic valve is normal in structure. No aortic regurgitation is present. MITRAL VALVE The mitral valve is mildly thickened. Mitral regurgitation is trace. TRICUSPID VALVE There is trace tricuspid regurgitation. There is no pulmonary hypertension. GREAT VESSELS The aortic root is normal in size. <Conclusion> The Left Ventricle is borderline dilated. There is borderline concentric left ventricular hypertrophy. The systolic function is severely impaired. Sever Apical and infero-lateral hypokinesis Transmitral Doppler flow pattern is Grade I-abnormal relaxation pattern.
--- NOTE | 2017-04-16 21:28 | CARD ---
APPROVED REPORT EKG Measurement Heart [id number] <Conclusion> Normal sinus rhythm Septal infarct, age undetermined Marked T wave abnormality, consider anterolateral ischemia Prolonged QT Abnormal ECG
--- NOTE | 2017-04-16 21:36 | CARD ---
APPROVED REPORT EKG Measurement Heart [id number] [id number] <Conclusion> Sinus rhythm with 1st degree AV block with occasional premature ventricular complexes Anteroseptal infarct, age undetermined T wave abnormality, consider infero-lateral ischemia Prolonged QT Abnormal ECG
--- NOTE | 2017-04-16 22:07 | CARD ---
APPROVED REPORT EKG Measurement Heart [id number] [place] 192P [id number] <Conclusion> Sinus rhythm with frequent premature ventricular complexes Septal infarct, age undetermined Marked T wave abnormality, consider anterolateral ischemia Prolonged QT Abnormal ECG
[2017-04-16] MEDS ORDERED: Calcium-Vit D 250 mg-125 Units Tab UD PO ONE (22:56)
--- NOTE | 2017-04-17 03:43 | CON ---
ELECTROPHYSIOLOGY CONSULTATION DATE: 04/16/2017 REASON FOR EVALUATION: 1. Ventricular tachycardia. 2. Cardiac arrest. 3. Dilated cardiomyopathy. 4. Hypokalemia. HISTORY OF PRESENT ILLNESS: Ms. Lana Hemphill is a 62-year-old female with past medical history along with significant allergies who presents to the Emergency Department here at [facility] on the day of admission 04/15/2017 after undergoing cardiac resuscitation from an Urgent Care Center. 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 The patient had a syncopal episode, was noted to have what was reported to be ventricular tachycardia, underwent CPR, ultimately was brought in to [facility] for further evaluation and management. Acute EKG changes were noted with ST elevation primarily in the lateral leads. Dr. Philip Gillespie was called in for a [facility]. She underwent cardiac catheterization, which did not reveal obstructive coronary artery disease. The patient ultimately required ICU admission. In the ICU, the patient had recurrent episodes of monomorphic ventricular tachycardia. The patient also had significant QT prolongation as well. The patient was initiated on amiodarone therapy, initiated on beta edil therapy. I was asked to see her in regards to further evaluation and management. Of note, the patient appears to have a very long QT interval. During cardiac catheterization, the patient had a Takotsubo type pattern, which is otherwise known as apical ballooning syndrome type pattern. I have been asked to see her in regards to finding of ventricular arrhythmia with finding of structural hear disease as well as further management. Speaking to the patient, the patient has not had any issues with hypertension. The patient is obese, has significant seasonal allergies which she experiences worsening symptoms during this time of year February and March. The patient does appeared to try to exercise, walking in the park,but without any significant limitation. The patient has followed up with her primary and has been going through her yearly health screening without any issues. The patient has never been told that she has had any cardiac issues, but admittedly has not had any significant cardiac workup either. The patient has had EKGs in the past, those EKGs currently are not available. She denies any prior history of syncope. She does currently has significant chest wall related pain since undergoing CPR. REVIEW OF SYSTEMS: A 12-point review of systems has been performed, pertinent positive as outlined in the history of present illness. PAST MEDICAL HISTORY: Significant for hemorrhagic cystitis due to Advil use, osteoporosis, seasonal allergies. PAST SURGICAL HISTORY: Significant for cystoscopy at the age of 6. ALLERGIES: THE PATIENT IS ALLERGIC TO LATEX AND PINEAPPLE. SOCIAL HISTORY: The patient is a smoker and smokes half-pack for the last 40 years, social drinker and marijuana user. FAMILY HISTORY: Negative for premature coronary artery disease or sudden cardiac . Past medical history as mentioned in history of present illness. PHYSICAL EXAMINATION VITAL SIGNS: The patient is afebrile. Pulse rate of 79, telemetry currently shows normal sinus rhythm with occasional PVCs, blood pressure 120/77, respiratory rate of 25 and O2 saturation is 99%. GENERAL: She is an obese female in no acute distress, appear older than stated age. HEENT: Examination of her head is normocephalic and atraumatic. There is no ricardo facial asymmetry. NECK: Supple. She does have somewhat of a plethoric appearance. CHEST: Clear to auscultation bilaterally. CARDIOVASCULAR: Regular rate and rhythm. S1, S2, distant heart sounds are noted. ABDOMEN: Soft, obese, nontender, nondistended, positive bowel sounds. EXTREMITIES: No cyanosis, clubbing or edema. LABORATORY DATA: On review of 2D echocardiogram,which was done today 04/16/2017 shows an ejection fraction of 21%, left ventricle is borderline dilated, borderline concentric left ventricular hypertrophy, systolic function is severely impaired with severe apical and inferolateral hypokinesis, grade 1 abnormal relaxation pattern was also noted, right ventricle is of normal wall thickness, left atrium is normal, right atrium is normal, aortic valve is normal in structure, aortic regurgitation is present, mitral valve is mildly thickened and mitral regurgitation is trace. EKG which is done today 04/16/2017 shows sinus rhythm, normal HI interval. There is normal axis across the limb leads. There is profound T wave inversions with prolong QT. The QT interval approaching 600 millisecond. PVCs were also present, which appeared to be of origin and appears to have a left bundle branch type morphology implying right ventricular origin. ASSESSMENT AND PLAN: 1. Recurrent monomorphic ventricular tachycardia in the setting what appears to be Takotsubo syndrome. The patient although not receiving an acute stressor, does appear to be undergoing significant stress at work. Her clinical presentation, ventricular arrhythmias, EKG pattern, echo pattern as well as pattern on cardiac catheterization appears to be consistent with Takotsubo syndrome. Ventricular arrhythmia is certainly a noted phenomenon, ventricular arrhythmias may subside with recovery from this Takotsubo type pattern. Increased QT interval may be an indicator of acute myocardial injury. We would maximize medical therapy in the form of beta edil medications. The patient appears to be responding to intermediate use of amiodarone; however, should be carefully considered given risk of side effects. Implantable defibrillator in this type of patient can be considered, but certainly risks and benefits must be weighed out carefully. 2. Cardiac arrest in the setting of what appears to be the Takotsubo type of picture. Again would maximize beta edil medication in effort to reduce adrenergic inputs and allow for recovery. 3. Dilated cardiomyopathy, which will respond with medical therapy. We would certainly replace potassium. The patient did come in with potassium of 3.6. We will also check magnesium and replace magnesium if low. Magnesium on presentation was 2.5. Cardiomyopathy is not of ischemic origin. 4. Hypokalemia, which should be corrected. 5. Hyperthyroidism with a depressed TSH, would certainly address if there is any underlying significant thyroid issue. Free T4, free T3 should be checked. Thank you for allowing me to participate in the care of this very interesting patient, please do not hesitate to call for any questions in regards to her care. Humberto Burns MD
[2017-04-17] MEDS: Amiodarone 360 mg/D5W 200 ml 360 MG/200 ML BAG IV SCH ×3 (05:50→18:21)
[2017-04-17 06:19] LABS: HEMATOCRIT 35.4 % (36.0-48.0); MEAN CELL VOLUME 87.8 fl (80.0-105.0); MEAN CORPUSCULAR HEMOGLOBIN 27.8 pg (25.0-35.0); MEAN CORPUSCULAR HGB CONC 31.6 g/dl (31.0-37.0); MEAN PLATELET VOLUME 11.5 fl (7.0-11.0); RED CELL DISTRIBUTION WIDTH 16.2 % (11.5-14.5); WHITE BLOOD COUNT 12.1 10^3/ul (4.5-11.0)
[2017-04-17 06:28] LABS: ALB/GLOB RATIO 1.4 (1.1-1.8); ALKALINE PHOSPHATASE 75 U/L (38-126); ALT/SGPT 44 U/L (7-56); AST/SGOT 34 U/L (14-36); BILIRUBIN,TOTAL 1.1 mg/dL (0.2-1.3); BLOOD UREA NITROGEN 16 mg/dL (7-21); CALCIUM 8.7 mg/dL (8.4-10.5); CARBON DIOXIDE 27 mmol/L (21-33); CHLORIDE 101 mmol/L (95-110); GFR AFRICAN-AMERICAN > 60; GLUCOSE,RANDOM 118 mg/dL (70-110); PHOSPHOROUS 3.2 mg/dL (2.5-4.5); POTASSIUM 3.6 mmol/L (3.6-5.0); SODIUM 138 mmol/L (132-148); TOTAL PROTEIN 7.1 g/dL (5.8-8.3)
[2017-04-17] MEDS: Pantoprazole 40 mg EC Tab PO SCH (06:30)
--- NOTE | 2017-04-17 07:46 | CP.CCUPN ---
<Rinku Baeza - Last Filed: 04/17/17 12:46> CCU Subjective - Physician Review Subjective (Free Text): 04/17/17 7:46 Patient seen and examined in the ICU this AM. No acute events reported overnight. Pt continues to be on amiodarone gtt while transitioning to PO. Pt reports improvement in her nausea but continued chest pain 2/2 chest compressions. Pt denies irregular heart rate, palpitations, shob, vomiting, fever, chills, abdominal pain. Patient continues to be on amio gtt and will be transitioned to oral medication. CCU Objective - Vital Signs / Intake & Output Vital Signs (Last 4 hours): Vital Signs Temp 04/17/17 04:00 98.4 F Intake and Output (Last 8hrs): Intake & Output 04/16/17 04/17/17 04/17/17 22:59 06:59 14:59 Intake Total 976 283 Output Total 500 300 Balance 476 -17 Intake: IV 496 283 amiodarone 396 meds 100 283 Oral 480 Output: Urine 500 300 Urine, Voided 500 300 - Physical Exam Head: Positive for: Atraumatic, Normocephalic Pupils: Positive for: PERRL Extroacular Muscles: Positive for: EOMI Conjunctiva: Positive for: Normal Mouth: Positive for: Moist Mucous Membranes Neck: Positive for: Normal Range of Motion Respiratory/Chest: Positive for: Clear to Auscultation, Good Air Exchange. Negative for: Respiratory Distress, Accessory Muscle Use Cardiovascular: Positive for: Regular Rate and Rhythm, Normal S1, S2. Negative for: Murmurs Abdomen: Positive for: Normal Bowel Sounds. Negative for: Tenderness, Distention, Peritoneal Signs Back: Positive for: Normal Inspection Upper Extremity: Positive for: Normal Inspection. Negative for: Cyanosis, Edema Lower Extremity: Positive for: Normal Inspection. Negative for: Edema Neurological: Positive for: GCS=15, CN II-XII Intact, Speech Normal Skin: Positive for: Warm, Dry, Normal Color. Negative for: Rashes Psychiatric: Positive for: Alert, Oriented x 3, Normal Insight, Normal Concentration - Medications Active Medications: Active Medications Generic Name Dose Route Start Last Admin Trade Name Freq PRN Reason Stop Dose Admin Amiodarone HCl 800 mg 04/16/17 10:00 10/18/17 17:20 Cordarone PO 800 mg BID JENA Administration Amiodarone HCl/Dextrose 360 mg in 200 mls @ 16.667 mls/hr 04/17/17 07:00 Nexterone 360 Mg In D5w 200 Ml (Premix) IV .Q12H JENA Protocol 0.5 MG/MIN Insulin Human Regular 0 units 04/15/17 22:00 04/16/17 21:43 Humulin R High SC Not Given ACHS [facility] Protocol Metoprolol Tartrate 25 mg 04/15/17 21:30 04/16/17 17:13 Lopressor PO 25 mg BID JENA Administration Oxycodone/Acetaminophen 1 tab 04/15/17 21:31 04/16/17 22:22 Percocet 5/325 Mg Tab PO 04/18/17 21:32 1 tab Q4H PRN Administration Pain, severe (8-10) Pantoprazole Sodium 40 mg 04/17/17 06:00 04/17/17 06:30 Protonix Ec Tab PO 40 mg 0600 JENA Administration Potassium Chloride 10 meq 04/16/17 08:00 04/16/17 07:49 Klor-Con 10 PO 10 meq BRK JENA Administration Potassium Chloride 20 meq 04/17/17 08:30 K-Dur 20 Meq Er Tab PO 04/17/17 08:31 BRK ONE - Patient Studies Lab Studies: Lab Studies 04/17/17 04/17/17 04/16/17 Range/Units 05:20 05:20 16:03 WBC 12.1 H (4.5-11.0) 10^3/ul RBC 4.03 (3.5-6.1) 10^6/uL Hgb 11.2 L (12.0-16.0) g/dL Hct 35.4 L (36.0-48.0) % MCV 87.8 (80.0-105.0) fl MCH 27.8 (25.0-35.0) pg MCHC 31.6 (31.0-37.0) g/dl RDW 16.2 H (11.5-14.5) % Plt Count 202 (120.0-450.0) 10^3/uL MPV 11.5 H (7.0-11.0) fl Gran % (50.0-68.0) % Lymph % (Auto) (22.0-35.0) % Sullivan % (Auto) (1.0-6.0) % Eos % (Auto) (1.5-5.0) % Baso % (Auto) (0.0-3.0) % Gran # (1.4-6.5) Lymph # (1.2-3.4) Sullivan # (0.1-0.6) Eos # (0.0-0.7) Baso # (0.0-2.0) K/mm3 Sodium 138 (132-148) mmol/L Potassium 3.6 (3.6-5.0) mmol/L Chloride 101 (95-110) mmol/L Carbon Dioxide 27 (21-33) mmol/L Anion Gap 14 (10-20) BUN 16 (7-21) mg/dL Creatinine 0.6 L (0.7-1.2) mg/dL Est GFR ( Amer) > 60 Est GFR (Non-Af Amer) > 60 POC Glucose (mg/dL) 129 H (65-110) mg/dL Random Glucose 118 H (70-110) mg/dL Hemoglobin A1c (4.2-6.5) % Calcium 8.7 (8.4-10.5) mg/dL Phosphorus 3.2 (2.5-4.5) mg/dL Magnesium 2.0 (1.7-2.2) mg/dL Total Bilirubin 1.1 (0.2-1.3) mg/dL AST 34 (14-36) U/L ALT 44 (7-56) U/L Alkaline Phosphatase 75 (38-126) U/L Troponin I ng/mL Total Protein 7.1 (5.8-8.3) g/dL Albumin 4.1 (3.0-4.8) g/dL Globulin 3.0 gm/dL Albumin/Globulin Ratio 1.4 (1.1-1.8) Procalcitonin (0.19-0.49) NG/ML Urine Color (YELLOW) Urine Appearance (CLEAR) Urine pH (4.7-8.0) Ur Specific [place] (1.005-1.035) Urine Protein (<30 mg/dL) mg/dL Urine Glucose (UA) (NEGATIVE) mg/dL Urine Ketones (NEGATIVE) mg/dL Urine Blood (NEGATIVE) Urine Nitrate (NEGATIVE) Urine Bilirubin (NEGATIVE) Urine Urobilinogen (<1 E.U./dL) E.U./dL Ur Leukocyte Esterase (NEGATIVE) Ryan/uL Urine RBC (0-2) /hpf Urine WBC (0-6) /hpf Ur Epithelial Cells (0-5) /hpf Urine Bacteria (NEG) 04/16/17 04/16/17 04/16/17 Range/Units 14:07 10:15 10:15 WBC (4.5-11.0) 10^3/ul RBC (3.5-6.1) 10^6/uL Hgb (12.0-16.0) g/dL Hct (36.0-48.0) % MCV (80.0-105.0) fl MCH (25.0-35.0) pg MCHC (31.0-37.0) g/dl RDW (11.5-14.5) % Plt Count (120.0-450.0) 10^3/uL MPV (7.0-11.0) fl Gran % (50.0-68.0) % Lymph % (Auto) (22.0-35.0) % Sullivan % (Auto) (1.0-6.0) % Eos % (Auto) (1.5-5.0) % Baso % (Auto) (0.0-3.0) % Gran # (1.4-6.5) Lymph # (1.2-3.4) Sullivan # (0.1-0.6) Eos # (0.0-0.7) Baso # (0.0-2.0) K/mm3 Sodium (132-148) mmol/L Potassium (3.6-5.0) mmol/L Chloride (95-110) mmol/L Carbon Dioxide (21-33) mmol/L Anion Gap (10-20) BUN (7-21) mg/dL Creatinine (0.7-1.2) mg/dL Est GFR ( Amer) Est GFR (Non-Af Amer) POC Glucose (mg/dL) 113 H (65-110) mg/dL Random Glucose (70-110) mg/dL Hemoglobin A1c (4.2-6.5) % Calcium (8.4-10.5) mg/dL Phosphorus (2.5-4.5) mg/dL Magnesium (1.7-2.2) mg/dL Total Bilirubin (0.2-1.3) mg/dL AST (14-36) U/L ALT (7-56) U/L Alkaline Phosphatase (38-126) U/L Troponin I 0.06 D ng/mL Total Protein (5.8-8.3) g/dL Albumin (3.0-4.8) g/dL Globulin gm/dL Albumin/Globulin Ratio (1.1-1.8) Procalcitonin 0.05 L (0.19-0.49) NG/ML Urine Color (YELLOW) Urine Appearance (CLEAR) Urine pH (4.7-8.0) Ur Specific [place] (1.005-1.035) Urine Protein (<30 mg/dL) mg/dL Urine Glucose (UA) (NEGATIVE) mg/dL Urine Ketones (NEGATIVE) mg/dL Urine Blood (NEGATIVE) Urine Nitrate (NEGATIVE) Urine Bilirubin (NEGATIVE) Urine Urobilinogen (<1 E.U./dL) E.U./dL Ur Leukocyte Esterase (NEGATIVE) Ryan/uL Urine RBC (0-2) /hpf Urine WBC (0-6) /hpf Ur Epithelial Cells (0-5) /hpf Urine Bacteria (NEG) 04/16/17 04/16/17 04/15/17 Range/Units 09:50 07:44 22:32 WBC (4.5-11.0) 10^3/ul RBC (3.5-6.1) 10^6/uL Hgb (12.0-16.0) g/dL Hct (36.0-48.0) % MCV (80.0-105.0) fl MCH (25.0-35.0) pg MCHC (31.0-37.0) g/dl RDW (11.5-14.5) % Plt Count (120.0-450.0) 10^3/uL MPV (7.0-11.0) fl Gran % (50.0-68.0) % Lymph % (Auto) (22.0-35.0) % Sullivan % (Auto) (1.0-6.0) % Eos % (Auto) (1.5-5.0) % Baso % (Auto) (0.0-3.0) % Gran # (1.4-6.5) Lymph # (1.2-3.4) Sullivan # (0.1-0.6) Eos # (0.0-0.7) Baso # (0.0-2.0) K/mm3 Sodium (132-148) mmol/L Potassium (3.6-5.0) mmol/L Chloride (95-110) mmol/L Carbon Dioxide (21-33) mmol/L Anion Gap (10-20) BUN (7-21) mg/dL Creatinine (0.7-1.2) mg/dL Est GFR ( Amer) Est GFR (Non-Af Amer) POC Glucose (mg/dL) 109 (65-110) mg/dL Random Glucose (70-110) mg/dL Hemoglobin A1c 5.9 (4.2-6.5) % Calcium (8.4-10.5) mg/dL Phosphorus (2.5-4.5) mg/dL Magnesium (1.7-2.2) mg/dL Total Bilirubin (0.2-1.3) mg/dL AST (14-36) U/L ALT (7-56) U/L Alkaline Phosphatase (38-126) U/L Troponin I ng/mL Total Protein (5.8-8.3) g/dL Albumin (3.0-4.8) g/dL Globulin gm/dL Albumin/Globulin Ratio (1.1-1.8) Procalcitonin (0.19-0.49) NG/ML Urine Color Yellow (YELLOW) Urine Appearance Sl cloudy (CLEAR) Urine pH 6.0 (4.7-8.0) Ur Specific [place] 1.025 (1.005-1.035) Urine Protein Trace H (<30 mg/dL) mg/dL Urine Glucose (UA) Negative (NEGATIVE) mg/dL Urine Ketones Trace H (NEGATIVE) mg/dL Urine Blood Small H (NEGATIVE) Urine Nitrate Positive H (NEGATIVE) Urine Bilirubin Negative (NEGATIVE) Urine Urobilinogen 0.2 (<1 E.U./dL) E.U./dL Ur Leukocyte Esterase Negative (NEGATIVE) Ryan/uL Urine RBC 0 - 2 (0-2) /hpf Urine WBC 2 - 5 (0-6) /hpf Ur Epithelial Cells 0 - 2 (0-5) /hpf Urine Bacteria Few (NEG) 04/15/17 Range/Units 22:32 WBC 10.3 (4.5-11.0) 10^3/ul RBC 4.47 (3.5-6.1) 10^6/uL Hgb 12.9 (12.0-16.0) g/dL Hct 39.4 (36.0-48.0) % MCV 88.1 (80.0-105.0) fl MCH 28.9 (25.0-35.0) pg MCHC 32.7 (31.0-37.0) g/dl RDW 16.0 H (11.5-14.5) % Plt Count 223 (120.0-450.0) 10^3/uL MPV 9.9 (7.0-11.0) fl Gran % 87.2 H (50.0-68.0) % Lymph % (Auto) 9.5 L (22.0-35.0) % Sullivan % (Auto) 3.3 (1.0-6.0) % Eos % (Auto) 0.0 L (1.5-5.0) % Baso % (Auto) 0.0 (0.0-3.0) % Gran # 8.96 H (1.4-6.5) Lymph # 1.0 L (1.2-3.4) Sullivan # 0.3 (0.1-0.6) Eos # 0.0 (0.0-0.7) Baso # 0.00 (0.0-2.0) K/mm3 Sodium (132-148) mmol/L Potassium (3.6-5.0) mmol/L Chloride (95-110) mmol/L Carbon Dioxide (21-33) mmol/L Anion Gap (10-20) BUN (7-21) mg/dL Creatinine (0.7-1.2) mg/dL Est GFR ( Amer) Est GFR (Non-Af Amer) POC Glucose (mg/dL) (65-110) mg/dL Random Glucose (70-110) mg/dL Hemoglobin A1c (4.2-6.5) % Calcium (8.4-10.5) mg/dL Phosphorus (2.5-4.5) mg/dL Magnesium (1.7-2.2) mg/dL Total Bilirubin (0.2-1.3) mg/dL AST (14-36) U/L ALT (7-56) U/L Alkaline Phosphatase (38-126) U/L Troponin I ng/mL Total Protein (5.8-8.3) g/dL Albumin (3.0-4.8) g/dL Globulin gm/dL Albumin/Globulin Ratio (1.1-1.8) Procalcitonin (0.19-0.49) NG/ML Urine Color (YELLOW) Urine Appearance (CLEAR) Urine pH (4.7-8.0) Ur Specific [place] (1.005-1.035) Urine Protein (<30 mg/dL) mg/dL Urine Glucose (UA) (NEGATIVE) mg/dL Urine Ketones (NEGATIVE) mg/dL Urine Blood (NEGATIVE) Urine Nitrate (NEGATIVE) Urine Bilirubin (NEGATIVE) Urine Urobilinogen (<1 E.U./dL) E.U./dL Ur Leukocyte Esterase (NEGATIVE) Ryan/uL Urine RBC (0-2) /hpf Urine WBC (0-6) /hpf Ur Epithelial Cells (0-5) /hpf Urine Bacteria (NEG) Laboratory Results - last 24 hr 04/15/17 04/15/17 04/16/17 22:32 22:32 07:44 WBC 10.3 RBC 4.47 Hgb 12.9 Hct 39.4 MCV 88.1 MCH 28.9 MCHC 32.7 RDW 16.0 H Plt Count 223 MPV 9.9 Gran % 87.2 H Lymph % (Auto) 9.5 L Sullivan % (Auto) 3.3 Eos % (Auto) 0.0 L Baso % (Auto) 0.0 Gran # 8.96 H Lymph # 1.0 L Sullivan # 0.3 Eos # 0.0 Baso # 0.00 Sodium Potassium Chloride Carbon Dioxide Anion Gap BUN Creatinine Est GFR ( Amer) Est GFR (Non-Af Amer) POC Glucose (mg/dL) 109 Random Glucose Hemoglobin A1c 5.9 Calcium Phosphorus Magnesium Total Bilirubin AST ALT Alkaline Phosphatase Troponin I Total Protein Albumin Globulin Albumin/Globulin Ratio Procalcitonin Urine Color Urine Appearance Urine pH Ur Specific [place] Urine Protein Urine Glucose (UA) Urine Ketones Urine Blood Urine Nitrate Urine Bilirubin Urine Urobilinogen Ur Leukocyte Esterase Urine RBC Urine WBC Ur Epithelial Cells Urine Bacteria 04/16/17 04/16/17 04/16/17 09:50 10:15 10:15 WBC RBC Hgb Hct MCV MCH MCHC RDW Plt Count MPV Gran % Lymph % (Auto) Sullivan % (Auto) Eos % (Auto) Baso % (Auto) Gran # Lymph # Sullivan # Eos # Baso # Sodium Potassium Chloride Carbon Dioxide Anion Gap BUN Creatinine Est GFR ( Amer) Est GFR (Non-Af Amer) POC Glucose (mg/dL) Random Glucose Hemoglobin A1c Calcium Phosphorus Magnesium Total Bilirubin AST ALT Alkaline Phosphatase Troponin I 0.06 D Total Protein Albumin Globulin Albumin/Globulin Ratio Procalcitonin 0.05 L Urine Color Yellow Urine Appearance Sl cloudy Urine pH 6.0 Ur Specific [place] 1.025 Urine Protein Trace H Urine Glucose (UA) Negative Urine Ketones Trace H Urine Blood Small H Urine Nitrate Positive H Urine Bilirubin Negative Urine Urobilinogen 0.2 Ur Leukocyte Esterase Negative Urine RBC 0 - 2 Urine WBC 2 - 5 Ur Epithelial Cells 0 - 2 Urine Bacteria Few 04/16/17 04/16/17 04/17/17 14:07 16:03 05:20 WBC 12.1 H RBC 4.03 Hgb 11.2 L Hct 35.4 L MCV 87.8 MCH 27.8 MCHC 31.6 RDW 16.2 H Plt Count 202 MPV 11.5 H Gran % Lymph % (Auto) Sullivan % (Auto) Eos % (Auto) Baso % (Auto) Gran # Lymph # Sullivan # Eos # Baso # Sodium Potassium Chloride Carbon Dioxide Anion Gap BUN Creatinine Est GFR ( Amer) Est GFR (Non-Af Amer) POC Glucose (mg/dL) 113 H 129 H Random Glucose Hemoglobin A1c Calcium Phosphorus Magnesium Total Bilirubin AST ALT Alkaline Phosphatase Troponin I Total Protein Albumin Globulin Albumin/Globulin Ratio Procalcitonin Urine Color Urine Appearance Urine pH Ur Specific [place] Urine Protein Urine Glucose (UA) Urine Ketones Urine Blood Urine Nitrate Urine Bilirubin Urine Urobilinogen Ur Leukocyte Esterase Urine RBC Urine WBC Ur Epithelial Cells Urine Bacteria 04/17/17 05:20 WBC RBC Hgb Hct MCV MCH MCHC RDW Plt Count MPV Gran % Lymph % (Auto) Sullivan % (Auto) Eos % (Auto) Baso % (Auto) Gran # Lymph # Sullivan # Eos # Baso # Sodium 138 Potassium 3.6 Chloride 101 Carbon Dioxide 27 Anion Gap 14 BUN 16 Creatinine 0.6 L Est GFR ( Amer) > 60 Est GFR (Non-Af Amer) > 60 POC Glucose (mg/dL) Random Glucose 118 H Hemoglobin A1c Calcium 8.7 Phosphorus 3.2 Magnesium 2.0 Total Bilirubin 1.1 AST 34 ALT 44 Alkaline Phosphatase 75 Troponin I Total Protein 7.1 Albumin 4.1 Globulin 3.0 Albumin/Globulin Ratio 1.4 Procalcitonin Urine Color Urine Appearance Urine pH Ur Specific [place] Urine Protein Urine Glucose (UA) Urine Ketones Urine Blood Urine Nitrate Urine Bilirubin Urine Urobilinogen Ur Leukocyte Esterase Urine RBC Urine WBC Ur Epithelial Cells Urine Bacteria EKG/Cardiology Studies: Cardiology / EKG Studies 04/16/17 08:53 EKG [ELECTROCARDIOGRAM] Stat Comment: Reason For Exam: post arrest Fingerstick Blood Sugar Results: 118 Review of Systems - Review of Systems All systems: reviewed and no additional remarkable complaints except (as what is mentioned in HPI) Critical Care Progress Note - Nutrition Nutrition: Nutrition Category Date Time Status Heart Healthy Diet [DIET] Diets 04/15/17 Dinner Ordered Assessment/Plan - Assessment and Plan (Free Text) Assessment: 62 year old female with PMH of hemorrhagic cystitis from NSAIDs, osteoporosis, seasonal allergies, S/P cystoscopy [place] [facility] [place] apparently had ventricular tachycardia and cardiac arrest requiring CPR in the field. Patient is s/p LHC with cardiology showing no significant lesion. Cardiology and Electrophysiology evaluated the patient with proposed Takotsubo syndrome as leading culprit for clinical presentation. Plan: Neuro: Stable, AAOx3 Pulm: O2 NC, Maintain SaO2 >92% CVS: STEMI s/p LHC - Curbside with cardio reporting no significant lesion - Troponin trended down Takotsubo cardiomyopathy vs. Myocarditis unlikely ischemic resulting in arrthymia - Amiodarone gtt 0.5mg since midnight, will transition to oral today - Lopressor - Echocardiogram: EF 20%, LV borderline dilated, borderline LVH, severe apical and inferolateral hypokinesis, AR, MV mildly thickened - Electrophysiology(Dr. Mooney) consulted - Symptom constellation fits Takotsubo's, rec myocarditis work up - Amio gtt now with plan to transition to oral, BB blockade - Potential need for ICD - Cardiology consulted and following Echo showing EF of 15% concern for Takotsubo cardiomyopathy vs. Myocarditis - ID consulted, appreciate recs - Coxsackie virus, CMV titers, Lyme disease pending GI: Stable, Protonix for GI ppx nausea improved LFT stable Renal: Hx of hemorrhagic cystitis IVF maintenance Monitor and replace electrolytes as necessary Maintain euvolemia, monitor I&O's Endo: Low TSH - Free T3, T4 pending ID: Stable, Afebrile, WBC 12.1 ID consulted and following Blood, Urine, Sputum cultures pending Procalcitonin low Heme: H/H stable Continue to monitor SCDs for DVT ppx Case and plan discussed with attending - Date & Time Date: 04/17/17 Time: 07:48 <Jewell POMPA,Haydee H - Last Filed: 04/17/17 13:07> CCU Objective - Vital Signs / Intake & Output Vital Signs (Last 4 hours): Vital Signs Temp Pulse BP 04/17/17 12:00 98 F 04/17/17 10:00 76 04/17/17 09:31 88 04/17/17 09:18 87 04/17/17 09:17 89 134/89 Intake and Output (Last 8hrs): Intake & Output 04/16/17 04/17/17 04/17/17 22:59 06:59 14:59 Intake Total 976 283 Output Total 500 300 Balance 476 -17 Weight 169 lb Intake: IV 496 283 amiodarone 396 meds 100 283 Oral 480 Output: Urine 500 300 Urine, Voided 500 300 - Medications Active Medications: Active Medications Generic Name Dose Route Start Last Admin Trade Name Freq PRN Reason Stop Dose Admin Amiodarone HCl 800 mg 04/16/17 10:00 04/17/17 09:17 Cordarone PO 800 mg BID JENA Administration Amiodarone HCl/Dextrose 360 mg in 200 mls @ 16.667 mls/hr 04/17/17 07:00 07:47 Nexterone 360 Mg In D5w 200 Ml (Premix) IV 16.667 mls/hr .Q12H JENA Administration Protocol 0.5 MG/MIN Insulin Human Regular 0 units 04/15/17 22:00 04/17/17 12:02 Humulin R High SC Not Given ACHS JENA Protocol Lisinopril 5 mg 04/17/17 10:00 04/17/17 09:31 Zestril PO 5 mg DAILY JENA Administration Magnesium Oxide 400 mg 04/17/17 10:00 04/17/17 09:17 Mag-Ox PO 400 mg DAILY JENA Administration Metoprolol Tartrate 25 mg 04/15/17 21:30 04/17/17 09:18 Lopressor PO 25 mg BID JENA Administration Morphine Sulfate 2 mg 04/17/17 10:37 04/17/17 11:59 Morphine IVP 2 mg Q6H PRN Administration Pain, severe (8-10) Oxycodone/Acetaminophen 1 tab 04/15/17 21:31 04/17/17 09:23 Percocet 5/325 Mg Tab PO 04/18/17 21:32 1 tab Q4H PRN Administration Pain, severe (8-10) Pantoprazole Sodium 40 mg 04/17/17 06:00 04/17/17 06:30 Protonix Ec Tab PO 40 mg 0600 JENA Administration Potassium Chloride 10 meq 04/16/17 08:00 04/17/17 09:18 Klor-Con 10 PO 10 meq BRK JENA Administration - Patient Studies Lab Studies: Microbiology Studies 04/15/17 21:30 MRSA Culture (Admit) - Final Naris MRSA NOT DETECTED 04/16/17 09:50 Urine Culture - Preliminary Urine Gram Negative Moise 04/16/17 10:30 Blood Culture - Preliminary Blood-Venous NO GROWTH AFTER 24 HOURS 04/16/17 10:15 Blood Culture - Preliminary Blood-Venous NO GROWTH AFTER 24 HOURS Lab Studies 04/17/17 04/17/17 04/17/17 Range/Units 07:50 07:04 07:03 WBC (4.5-11.0) 10^3/ul RBC (3.5-6.1) 10^6/uL Hgb (12.0-16.0) g/dL Hct (36.0-48.0) % MCV (80.0-105.0) fl MCH (25.0-35.0) pg MCHC (31.0-37.0) g/dl RDW (11.5-14.5) % Plt Count (120.0-450.0) 10^3/uL MPV (7.0-11.0) fl Sodium (132-148) mmol/L Potassium (3.6-5.0) mmol/L Chloride (95-110) mmol/L Carbon Dioxide (21-33) mmol/L Anion Gap (10-20) BUN (7-21) mg/dL Creatinine (0.7-1.2) mg/dL Est GFR ( Amer) Est GFR (Non-Af Amer) POC Glucose (mg/dL) 111 H (65-110) mg/dL Random Glucose (70-110) mg/dL Calcium (8.4-10.5) mg/dL Phosphorus (2.5-4.5) mg/dL Magnesium (1.7-2.2) mg/dL Total Bilirubin (0.2-1.3) mg/dL AST (14-36) U/L ALT (7-56) U/L Alkaline Phosphatase (38-126) U/L Total Protein (5.8-8.3) g/dL Albumin (3.0-4.8) g/dL Globulin gm/dL Albumin/Globulin Ratio (1.1-1.8) Procalcitonin (0.19-0.49) NG/ML Free T4 1.23 (0.78-2.19) ng/dL Free T3 pg/mL 2.83 (2.77-5.27) pg/mL 04/17/17 04/17/17 04/16/17 Range/Units 05:20 05:20 21:18 WBC 12.1 H (4.5-11.0) 10^3/ul RBC 4.03 (3.5-6.1) 10^6/uL Hgb 11.2 L (12.0-16.0) g/dL Hct 35.4 L (36.0-48.0) % MCV 87.8 (80.0-105.0) fl MCH 27.8 (25.0-35.0) pg MCHC 31.6 (31.0-37.0) g/dl RDW 16.2 H (11.5-14.5) % Plt Count 202 (120.0-450.0) 10^3/uL MPV 11.5 H (7.0-11.0) fl Sodium 138 (132-148) mmol/L Potassium 3.6 (3.6-5.0) mmol/L Chloride 101 (95-110) mmol/L Carbon Dioxide 27 (21-33) mmol/L Anion Gap 14 (10-20) BUN 16 (7-21) mg/dL Creatinine 0.6 L (0.7-1.2) mg/dL Est GFR ( Amer) > 60 Est GFR (Non-Af Amer) > 60 POC Glucose (mg/dL) 118 H (65-110) mg/dL Random Glucose 118 H (70-110) mg/dL Calcium 8.7 (8.4-10.5) mg/dL Phosphorus 3.2 (2.5-4.5) mg/dL Magnesium 2.0 (1.7-2.2) mg/dL Total Bilirubin 1.1 (0.2-1.3) mg/dL AST 34 (14-36) U/L ALT 44 (7-56) U/L Alkaline Phosphatase 75 (38-126) U/L Total Protein 7.1 (5.8-8.3) g/dL Albumin 4.1 (3.0-4.8) g/dL Globulin 3.0 gm/dL Albumin/Globulin Ratio 1.4 (1.1-1.8) Procalcitonin (0.19-0.49) NG/ML Free T4 (0.78-2.19) ng/dL Free T3 pg/mL (2.77-5.27) pg/mL 04/16/17 04/16/17 04/16/17 Range/Units 16:03 14:07 10:15 WBC (4.5-11.0) 10^3/ul RBC (3.5-6.1) 10^6/uL Hgb (12.0-16.0) g/dL Hct (36.0-48.0) % MCV (80.0-105.0) fl MCH (25.0-35.0) pg MCHC (31.0-37.0) g/dl RDW (11.5-14.5) % Plt Count (120.0-450.0) 10^3/uL MPV (7.0-11.0) fl Sodium (132-148) mmol/L Potassium (3.6-5.0) mmol/L Chloride (95-110) mmol/L Carbon Dioxide (21-33) mmol/L Anion Gap (10-20) BUN (7-21) mg/dL Creatinine (0.7-1.2) mg/dL Est GFR ( Amer) Est GFR (Non-Af Amer) POC Glucose (mg/dL) 129 H 113 H (65-110) mg/dL Random Glucose (70-110) mg/dL Calcium (8.4-10.5) mg/dL Phosphorus (2.5-4.5) mg/dL Magnesium (1.7-2.2) mg/dL Total Bilirubin (0.2-1.3) mg/dL AST (14-36) U/L ALT (7-56) U/L Alkaline Phosphatase (38-126) U/L Total Protein (5.8-8.3) g/dL Albumin (3.0-4.8) g/dL Globulin gm/dL Albumin/Globulin Ratio (1.1-1.8) Procalcitonin 0.05 L (0.19-0.49) NG/ML Free T4 (0.78-2.19) ng/dL Free T3 pg/mL (2.77-5.27) pg/mL 04/16/17 Range/Units 07:44 WBC (4.5-11.0) 10^3/ul RBC (3.5-6.1) 10^6/uL Hgb (12.0-16.0) g/dL Hct (36.0-48.0) % MCV (80.0-105.0) fl MCH (25.0-35.0) pg MCHC (31.0-37.0) g/dl RDW (11.5-14.5) % Plt Count (120.0-450.0) 10^3/uL MPV (7.0-11.0) fl Sodium (132-148) mmol/L Potassium (3.6-5.0) mmol/L Chloride (95-110) mmol/L Carbon Dioxide (21-33) mmol/L Anion Gap (10-20) BUN (7-21) mg/dL Creatinine (0.7-1.2) mg/dL Est GFR ( Amer) Est GFR (Non-Af Amer) POC Glucose (mg/dL) 109 (65-110) mg/dL Random Glucose (70-110) mg/dL Calcium (8.4-10.5) mg/dL Phosphorus (2.5-4.5) mg/dL Magnesium (1.7-2.2) mg/dL Total Bilirubin (0.2-1.3) mg/dL AST (14-36) U/L ALT (7-56) U/L Alkaline Phosphatase (38-126) U/L Total Protein (5.8-8.3) g/dL Albumin (3.0-4.8) g/dL Globulin gm/dL Albumin/Globulin Ratio (1.1-1.8) Procalcitonin (0.19-0.49) NG/ML Free T4 (0.78-2.19) ng/dL Free T3 pg/mL (2.77-5.27) pg/mL Laboratory Results - last 24 hr 04/16/17 04/16/17 04/16/17 07:44 10:15 14:07 WBC RBC Hgb Hct MCV MCH MCHC RDW Plt Count MPV Sodium Potassium Chloride Carbon Dioxide Anion Gap BUN Creatinine Est GFR ( Amer) Est GFR (Non-Af Amer) POC Glucose (mg/dL) 109 113 H Random Glucose Calcium Phosphorus Magnesium Total Bilirubin AST ALT Alkaline Phosphatase Total Protein Albumin Globulin Albumin/Globulin Ratio Procalcitonin 0.05 L Free T4 Free T3 pg/mL 04/16/17 04/16/17 04/17/17 16:03 21:18 05:20 WBC 12.1 H RBC 4.03 Hgb 11.2 L Hct 35.4 L MCV 87.8 MCH 27.8 MCHC 31.6 RDW 16.2 H Plt Count 202 MPV 11.5 H Sodium Potassium Chloride Carbon Dioxide Anion Gap BUN Creatinine Est GFR ( Amer) Est GFR (Non-Af Amer) POC Glucose (mg/dL) 129 H 118 H Random Glucose Calcium Phosphorus Magnesium Total Bilirubin AST ALT Alkaline Phosphatase Total Protein Albumin Globulin Albumin/Globulin Ratio Procalcitonin Free T4 Free T3 pg/mL 04/17/17 04/17/17 04/17/17 05:20 07:03 07:04 WBC RBC Hgb Hct MCV MCH MCHC RDW Plt Count MPV Sodium 138 Potassium 3.6 Chloride 101 Carbon Dioxide 27 Anion Gap 14 BUN 16 Creatinine 0.6 L Est GFR ( Amer) > 60 Est GFR (Non-Af Amer) > 60 POC Glucose (mg/dL) Random Glucose 118 H Calcium 8.7 Phosphorus 3.2 Magnesium 2.0 Total Bilirubin 1.1 AST 34 ALT 44 Alkaline Phosphatase 75 Total Protein 7.1 Albumin 4.1 Globulin 3.0 Albumin/Globulin Ratio 1.4 Procalcitonin Free T4 1.23 Free T3 pg/mL 2.83 04/17/17 07:50 WBC RBC Hgb Hct MCV MCH MCHC RDW Plt Count MPV Sodium Potassium Chloride Carbon Dioxide Anion Gap BUN Creatinine Est GFR ( Amer) Est GFR (Non-Af Amer) POC Glucose (mg/dL) 111 H Random Glucose Calcium Phosphorus Magnesium Total Bilirubin AST ALT Alkaline Phosphatase Total Protein Albumin Globulin Albumin/Globulin Ratio Procalcitonin Free T4 Free T3 pg/mL Critical Care Progress Note - Nutrition Nutrition: Nutrition Category Date Time Status Heart Healthy Diet [DIET] Diets 04/15/17 Dinner Ordered Attending/Attestation - Attestation I have personally seen and examined this patient.: Yes I have fully participated in the care of the patient.: Yes I have reviewed all pertinent clinical information: Yes Notes (Text): 04/17/17 13:04 62 y/o F s/p Cardiac arrest / Prolonged pauses and PVC w/ Concern for conduction delay and need for DF. On amiodarone per cardiology and EP. Possible plan for DF placement. EF 15% w/ cardiomyopathy possible Takotsubo? Cp post CR. On pain medications PRN. No further sings of arrythmia on Amiodarone, transition to P.O Monitor in ICu and await Life vest. Await cardiology clearance. Await titers for possible myocarditis. cc time 45 min 04/17/17 13:07
--- NOTE | 2017-04-17 08:24 | CP.PCM.PN ---
Subjective - Date & Time of Evaluation Date of Evaluation: 04/17/17 Time of Evaluation: 08:10 - Subjective Subjective: Comfortable, still with some chest pain on movements but starting to feel better , no fevers overnight. Objective - Vital Signs/Intake and Output Vital Signs (last 24 hours): Temp Pulse Resp BP Pulse Ox 98.6 F 78 27 H 120/77 100 04/17/17 00:00 04/17/17 02:00 04/16/17 17:30 04/16/17 17:20 04/16/17 17:30 Intake and Output: 04/16/17 04/17/17 18:59 06:59 Intake Total 976 Output Total 500 Balance 476 - Medications Medications: Current Medications Amiodarone HCl (Cordarone) 800 mg PO BID [facility] Last Admin: 04/16/17 17:20 Dose: 800 mg Amiodarone HCl/Dextrose (Nexterone 360 Mg In D5w 200 Ml (Premix)) 360 mg in 200 mls @ 33.333 mls/hr IV .Q6H JENA; 1 MG/MIN PRN Reason: Protocol Last Admin: 04/17/17 05:50 Dose: 33.333 mls/hr Insulin Human Regular (Humulin R High) 0 units SC ACHS JENA PRN Reason: Protocol Last Admin: 04/16/17 21:43 Dose: Not Given Metoprolol Tartrate (Lopressor) 25 mg PO BID [facility] Last Admin: 04/16/17 17:13 Dose: 25 mg Oxycodone/Acetaminophen (Percocet 5/325 Mg Tab) 1 tab PO Q4H PRN PRN Reason: Pain, severe (8-10) Stop: 04/18/17 21:32 Last Admin: 04/16/17 22:22 Dose: 1 tab Pantoprazole Sodium (Protonix Ec Tab) 40 mg PO 0600 [facility] Potassium Chloride (Klor-Con 10) 10 meq PO BRK [facility] Last Admin: 04/16/17 07:49 Dose: 10 meq - Labs Labs: 04/16/17 04:00 04/16/17 04:00 PT 11.2 Seconds (9.9-11.8) 04/15/17 22:32 INR 1.04 (0.93-1.08) 04/15/17 22:32 APTT 49.1 Seconds (23.7-30.8) H 04/15/17 22:32 - Constitutional Appears: Non-toxic, No Acute Distress - Head Exam Head Exam: NORMAL INSPECTION - Neck Exam Neck Exam: absent: Meningismus - Respiratory Exam Respiratory Exam: Decreased Breath Sounds - Cardiovascular Exam Cardiovascular Exam: +S1, +S2 - GI/Abdominal Exam GI & Abdominal Exam: Soft. absent: Tenderness Assessment and Plan - Assessment and Plan (Free Text) Plan: Assessment Systemic Inflammatory Response Syndrome, consider acute stress reaction from dilated cardiomyopathy S/P cardiac cath in a patient with probable Takotsubo syndrome; so far no sepsis source has been identified hemorrhagic cystitis from NSAIDs osteoporosis seasonal allergies S/P cystoscopy Plan follow up blood, urine cx; PCT is only 0.05; CXR did not show infiltrates - will continue to monitor off antibiotics for now and trend WBC count will continue to monitor clinically reviewed further Cardiology evaluation
[2017-04-17] MEDS ORDERED: Potassium Chloride 20 mEq ER Tab PO ONE (08:30)
[2017-04-17] MEDS: Insulin Reg-HIGH-Coverage SC SCH ×4 (08:51→22:00)
[2017-04-17] MEDS: Magnesium Oxide 400 mg Tab UD PO SCH (09:17)
[2017-04-17] MEDS: Potassium Chloride 10 mEq ER Tab PO SCH (09:18)
[2017-04-17] MEDS: Oxycodone/Acetaminophen 5/325 mg Tab PO PRN ×2 (09:23→20:17)
--- NOTE | 2017-04-17 09:52 | PN ---
DATE: 04/17/2017 SUBJECTIVE: The patient is in a chair without symptoms other than her chest wall pain from the CPR received during her initial admission. OBJECTIVE: VITAL SIGNS: On physical exam, blood pressure is 120/77, heart rate is in the 70s with frequent PVCs. NECK: Negative JVD. LUNGS: Without rales. HEART: S1 and S2. EXTREMITIES: Without edema. LABORATORY: White count is 12.1 with a hemoglobin of 11.2, BUN and creatinine are unremarkable. Glucose is 118. IMPRESSION: 1. Takotsubo cardiomyopathy. 2. Status post monomorphic ventricular tachycardia. 3. Status post cardiopulmonary resuscitation. 4. Chronic obstructive pulmonary disease. 5. Unremarkable coronary arteries. Given these findings, I had a long discussion with the patient and family about the therapeutic options including placing an ICD versus medical therapy with a potential LifeVest. After extensive discussion about the risks and benefits, the patient has opted for medical therapy along with a LifeVest. We will add p.o. amiodarone and discontinue IV amiodarone later today. She is currently on beta blockers 25 and Lopressor b.i.d. We will add low-dose ARBs. Philip Gillespie MD
[2017-04-17] MEDS: Morphine 2 mg/ml ISec IVP PRN ×2 (11:59→18:27)
--- NOTE | 2017-04-17 22:23 | CP.PCM.PN ---
Subjective - Date & Time of Evaluation Date of Evaluation: 04/17/17 Time of Evaluation: 20:00 - Subjective Subjective: Seen and examined at the bed side. C/O Chest pain 8-10/10, continue partially relieved with pain medications. S/P Cardiac Arrest and received CPR and Shock for V.Tachycardia. S/P Cardiac Cath with Normal Coronaries. Echo and TTE showed Apical and South-inferior wall motion abnormality. Currently patient is being treated for Takotsubo Cardiomyopathy Syndrome and V.Tachycardia. States. Had Right Ankle pain which got better. Objective - Vital Signs/Intake and Output Vital Signs (last 24 hours): Temp Pulse Resp BP Pulse Ox 99 F 91 H 27 H 134/89 100 04/17/17 16:00 04/17/17 18:27 04/16/17 17:30 04/17/17 09:17 04/16/17 17:30 - Medications Medications: Current Medications Amiodarone HCl (Cordarone) 800 mg PO BID [facility] Last Admin: 04/17/17 18:27 Dose: 800 mg Benzonatate (Tessalon Perles) 100 mg PO TID PRN PRN Reason: Cough Last Admin: 04/17/17 20:14 Dose: 100 mg Amiodarone HCl/Dextrose (Nexterone 360 Mg In D5w 200 Ml (Premix)) 360 mg in 200 mls @ 16.667 mls/hr IV .Q12H JENA; 0.5 MG/MIN PRN Reason: Protocol Last Admin: 04/17/17 18:21 Dose: 16.667 mls/hr Insulin Human Regular (Humulin R High) 0 units SC ACHS [facility] PRN Reason: Protocol Last Admin: 04/17/17 17:17 Dose: Not Given Lisinopril (Zestril) 5 mg PO DAILY [facility] Last Admin: 04/17/17 09:31 Dose: 5 mg Magnesium Oxide (Mag-Ox) 400 mg PO DAILY [facility] Last Admin: 04/17/17 09:17 Dose: 400 mg Metoprolol Tartrate (Lopressor) 25 mg PO BID [facility] Last Admin: 04/17/17 18:27 Dose: 25 mg Morphine Sulfate (Morphine) 2 mg IVP Q6H PRN PRN Reason: Pain, severe (8-10) Last Admin: 04/17/17 18:27 Dose: 2 mg Oxycodone/Acetaminophen (Percocet 5/325 Mg Tab) 1 tab PO Q4H PRN PRN Reason: Pain, severe (8-10) Stop: 04/18/17 21:32 Last Admin: 04/17/17 20:17 Dose: 1 tab Pantoprazole Sodium (Protonix Ec Tab) 40 mg PO 0600 [facility] Last Admin: 04/17/17 06:30 Dose: 40 mg Potassium Chloride (Klor-Con 10) 10 meq PO BRK [facility] Last Admin: 04/17/17 09:18 Dose: 10 meq - Labs Labs: 04/17/17 05:20 04/17/17 05:20 PT 11.2 Seconds (9.9-11.8) 04/15/17 22:32 INR 1.04 (0.93-1.08) 04/15/17 22:32 APTT 49.1 Seconds (23.7-30.8) H 04/15/17 22:32 - Constitutional Appears: Well, No Acute Distress - Head Exam Head Exam: ATRAUMATIC, NORMAL INSPECTION, NORMOCEPHALIC - Eye Exam Eye Exam: EOMI, Normal appearance, PERRL Pupil Exam: NORMAL ACCOMODATION, PERRL - ENT Exam ENT Exam: Mucous Membranes Moist, Normal Exam - Neck Exam Neck Exam: Full ROM, Normal Inspection. absent: Lymphadenopathy - Respiratory Exam Respiratory Exam: Chest Wall Tenderness, Clear to Ausculation Bilateral, NORMAL BREATHING PATTERN - Cardiovascular Exam Cardiovascular Exam: REGULAR RHYTHM, +S1, +S2. absent: Murmur - GI/Abdominal Exam GI & Abdominal Exam: Soft, Normal Bowel Sounds. absent: Tenderness, Rebound - Extremities Exam Extremities Exam: Full ROM, Normal Capillary Refill, Normal Inspection. absent : Joint Swelling, Pedal Edema - Back Exam Back Exam: Full ROM, NORMAL INSPECTION. absent: CVA tenderness (L), CVA tenderness (R) - Neurological Exam Neurological Exam: Alert, Awake, CN II-XII Intact, Normal Gait, Oriented x3 Neuro motor strength exam: Left Upper Extremity: 5, Right Upper Extremity: 5, Left Lower Extremity: 5, Right Lower Extremity: 5 - Psychiatric Exam Psychiatric exam: Normal Affect, Normal Mood - Skin Skin Exam: Dry, Intact, Normal Color, Warm Assessment and Plan (1) Takotsubo cardiomyopathy Assessment & Plan: S/P Cardiac Arrest V. Tachycardia Possible Musculoskeletal Chest Pain from CPR and Shock Normal Coronaries Continue to monitor in CCU for Cardiac Arrhythmia Continue Current Care Pain medication PRN Status: Acute
--- NOTE | 2017-04-17 23:24 | PN ---
ELECTROPHYSIOLOGY FOLLOW UP NOTE DATE: 04/17/2017 SUBJECTIVE: The patient is being seen in followup for ventricular tachycardia, history of cardiac arrest. The patient is doing well, having left chest pain from her prior episodes of CPR. On telemetry, she appears to be doing well with minimal PVCs, no recurrent of monomorphic ventricular tachycardia. PHYSICAL EXAMINATION: VITAL SIGNS: Blood pressure is 120/77, heart rate is in the 70s, intermittent PVCs are noted. GENERAL: She is an obese female, in no acute distress. Able to speak in complete sentences. NECK: Supple. No jugular venous distention. No carotid bruits. CHEST: Clear to auscultation bilaterally. CARDIOPULMONARY: Distant heart sounds. Regular rate and rhythm. S1. Occasional ectopy. ABDOMEN: Soft, nontender, nondistended. Positive bowel sounds. EXTREMITIES: No cyanosis, clubbing, or edema. LABORATORY DATA: The patient has a white count currently of 12.1, H and H 11.2 and 35.4, platelets of 202. Kidney function is within normal limits. Glucose is slightly elevated in the one teens, calcium is 8.7, potassium is again 3.6. Thyroid function is within normal limits. LFTs are also within normal limit. ASSESSMENT AND PLAN: 1. Monomorphic ventricular tachycardia in the setting of Takotsubo syndrome. The patient appears to have reduction in significant arrhythmias, no recurrence of ventricular tachycardia. She appears to be tolerating current dosing of metoprolol 25 mg b.i.d. The patient is being weaned off of IV amiodarone and should start low dose maintenance loaded 200 mg every 8 hours. At this point, would certainly push beta blockers as a priority. It is my hope that with reduction of sympathetic outflow, cardiac recovery may occur, normalization of EKG hopefully will happen as well. In terms of protection, we will contact LifeVest for evaluation and management to offer LifeVest therapy for possible recurrence of significant sustained ventricular arrhythmia. 2. Cardiac arrest, which appears to be arrhythmias in the setting of Takotsubo-type picture. 3. Dilated cardiomyopathy, which again is likely secondary to apical ballooning syndrome. 4. Hypokalemia, should keep potassium greater than 4. 5. Hyperthyroidism, to be evaluated further from a medical stand point. Extensive discussions were held with the patient and the patient's niece at the bedside. At this point, we will not opt to implant an implantable defibrillator. We will therefore push for LifeVest placement. I have also discussed the case with Dr. Philip Gillespie. Please feel free to contact me if there is any further questions in terms of medical therapy. Humberto Burns MD
[2017-04-18] MEDS: Oxycodone/Acetaminophen 5/325 mg Tab PO PRN ×3 (04:29→18:21)
[2017-04-18 06:34] LABS: BASO # 0.01 K/mm3 (0.0-2.0); BASO % 0.1 % (0.0-3.0); EOS % 0.1 % (1.5-5.0); GRAN # 6.74 (1.4-6.5); GRAN % 75.2 % (50.0-68.0); HEMATOCRIT 32.7 % (36.0-48.0); LYMPH # 1.4 (1.2-3.4); LYMPH % 16.1 % (22.0-35.0); MEAN CELL VOLUME 88.4 fl (80.0-105.0); MEAN CORPUSCULAR HEMOGLOBIN 28.4 pg (25.0-35.0); MEAN CORPUSCULAR HGB CONC 32.1 g/dl (31.0-37.0); MEAN PLATELET VOLUME 11.1 fl (7.0-11.0); MONO # 0.8 (0.1-0.6); MONO % 8.5 % (1.0-6.0); RED CELL DISTRIBUTION WIDTH 16.2 % (11.5-14.5)
[2017-04-18] MEDS: Pantoprazole 40 mg EC Tab PO SCH (06:34)
[2017-04-18 06:42] LABS: ALB/GLOB RATIO 1.2 (1.1-1.8); ALKALINE PHOSPHATASE 67 U/L (38-126); ALT/SGPT 27 U/L (7-56); AST/SGOT 28 U/L (14-36); BILIRUBIN,TOTAL 1.1 mg/dL (0.2-1.3); BLOOD UREA NITROGEN 13 mg/dL (7-21); CALCIUM 8.5 mg/dL (8.4-10.5); CARBON DIOXIDE 32 mmol/L (21-33); CHLORIDE 100 mmol/L (98-107); GFR AFRICAN-AMERICAN > 60; GLUCOSE,RANDOM 110 mg/dL (70-110); MAGNESIUM 2.2 mg/dL (1.7-2.2); PHOSPHOROUS 2.9 mg/dL (2.5-4.5); POTASSIUM 3.8 mmol/L (3.6-5.0); SODIUM 138 mmol/L (132-148); TOTAL PROTEIN 6.6 g/dL (5.8-8.3)
--- NOTE | 2017-04-18 08:50 | PN ---
DATE: 04/18/2017 SUBJECTIVE: The patient is in bed, in no acute distress, seen earlier this morning in #[id number], bed #4. She is awake and alert, and she states she is doing much better. OBJECTIVE: VITAL SIGNS: On exam, temperature is 99, blood pressure is still 123/63, respiratory rate of 20, heart rate of 74. EXAMINATION OF HEENT: Unremarkable. NECK: Supple. LUNGS: Have decreased breath sounds. HEART EXAM: Normal S1 and S2. ABDOMINAL EXAMINATION: Soft, nontender. No rebound. No guarding. LABORATORY EXAMINATION: Reveals white count is 9000, hemoglobin of 10 and platelets of 202. Chemistries reveal the patient has a procalcitonin of 0.09 from the 16 of April and a BUN of 13, creatinine of 0.6, glucose is elevated and the LFTs are normal. Urinalysis is unremarkable. Microbiology reveals the blood cultures have no growth. Urine culture has a Gram-negative tamra. The nares screen is not detected for MRSA, and review of the EKG reveals a QTC of 639. Dr. Jack Pino's note is reviewed and Dr. Castellano's report is reviewed and Dr. Philip Gillespie's progress notes from yesterday is reviewed. REVIEW OF ORDERS: Reveals the patient to be off of antibiotics. ASSESSMENT AND PLAN: A 62-year-old female with systemic inflammatory response syndrome, dilated cardiomyopathy,who is status post cardiac catheterization in a patient with Takotsubo syndrome, no evidence of sepsis in a patient with history of osteoporosis. She does have a Gram-negative tamra in the urine, but the urinalysis is negative and currently off of antibiotics, afebrile, normal white count and we will follow with you. The patient is at risk for developing nosocomial infections. Elroy Cárdenas MD
[2017-04-18] MEDS: Insulin Reg-HIGH-Coverage SC SCH ×3 (09:01→16:52)
[2017-04-18] MEDS: Potassium Chloride 10 mEq ER Tab PO SCH (09:03)
[2017-04-18] MEDS: Magnesium Oxide 400 mg Tab UD PO SCH (09:04)
[2017-04-18] MEDS: Amiodarone 360 mg/D5W 200 ml 360 MG/200 ML BAG IV SCH (09:05)
--- NOTE | 2017-04-18 11:06 | CP.CCUPN ---
<AryanRinku - Last Filed: 04/18/17 12:25> CCU Subjective - Physician Review Subjective (Free Text): 04/18/17 11:03 Patient seen and examined in the ICU this AM. No acute events overnight. Patient has been transitioned from amiodarione gtt to PO. Patient reports continue chest pain secondary to cardiac arrest resucitation. She reports pain is controlled with current medical management. She reports continued nausea with improved PO intake. She denies vomiting, fever, chills, palpatations. CCU Objective - Vital Signs / Intake & Output Vital Signs (Last 4 hours): Vital Signs Temp Pulse Resp BP Pulse Ox 04/18/17 10:00 69 04/18/17 09:10 79 26 H 82 L 04/18/17 09:04 84 128/79 04/18/17 09:03 84 128/79 04/18/17 09:00 85 23 128/79 75 L 04/18/17 08:54 87 28 H 115/67 78 L 04/18/17 08:50 83 22 82 L 04/18/17 08:40 65 15 100 04/18/17 08:30 64 18 98 04/18/17 08:20 68 20 100 04/18/17 08:10 76 18 95 04/18/17 08:00 98 F 66 18 89/52 L 100 04/18/17 07:50 69 16 98 04/18/17 07:40 76 26 H 91 L 04/18/17 07:30 70 16 82 L 04/18/17 07:20 78 16 80 L 04/18/17 07:10 68 16 89 L Intake and Output (Last 8hrs): Intake & Output 04/17/17 04/18/17 04/18/17 22:59 06:59 14:59 Intake Total 1359 Output Total 625 Balance 734 Intake: IV 859 Left Wrist 180 amiodarone 396 meds 283 Oral 500 Output: Urine 625 Urine, Voided 625 Other: # Bowel Movements 0 - Physical Exam Head: Positive for: Atraumatic, Normocephalic Pupils: Positive for: PERRL Extroacular Muscles: Positive for: EOMI Conjunctiva: Positive for: Normal Mouth: Positive for: Moist Mucous Membranes Neck: Positive for: Normal Range of Motion Respiratory/Chest: Positive for: Clear to Auscultation, Good Air Exchange. Negative for: Respiratory Distress, Accessory Muscle Use Cardiovascular: Positive for: Regular Rate and Rhythm, Normal S1, S2. Negative for: Murmurs Abdomen: Positive for: Normal Bowel Sounds. Negative for: Tenderness, Distention, Peritoneal Signs Back: Positive for: Normal Inspection Upper Extremity: Positive for: Normal Inspection. Negative for: Cyanosis, Edema Lower Extremity: Positive for: Normal Inspection. Negative for: Edema Neurological: Positive for: GCS=15, CN II-XII Intact, Speech Normal, Motor Func Grossly Intact Skin: Positive for: Warm, Dry, Normal Color. Negative for: Rashes Psychiatric: Positive for: Alert, Oriented x 3, Normal Insight, Normal Concentration - Medications Active Medications: Active Medications Generic Name Dose Route Start Last Admin Trade Name Freq PRN Reason Stop Dose Admin Amiodarone HCl 800 mg 04/16/17 10:00 04/18/17 09:04 Cordarone PO 800 mg BID JENA Administration Benzonatate 100 mg 04/17/17 19:30 04/17/17 20:14 Tessalon Perles PO 100 mg TID PRN Administration Cough Insulin Human Regular 0 units 04/15/17 22:00 04/18/17 09:01 Humulin R High SC Not Given ACHS [facility] Protocol Lisinopril 5 mg 04/17/17 10:00 04/18/17 09:04 Zestril PO 5 mg DAILY JENA Administration Magnesium Oxide 400 mg 04/17/17 10:00 04/18/17 09:04 Mag-Ox PO 400 mg DAILY JENA Administration Metoprolol Tartrate 25 mg 04/15/17 21:30 04/18/17 09:03 Lopressor PO 25 mg BID JENA Administration Morphine Sulfate 2 mg 04/17/17 10:37 04/17/17 18:27 Morphine IVP 2 mg Q6H PRN Administration Pain, severe (8-10) Oxycodone/Acetaminophen 1 tab 04/15/17 21:31 04/18/17 10:07 Percocet 5/325 Mg Tab PO 04/18/17 21:32 1 tab Q4H PRN Administration Pain, severe (8-10) Pantoprazole Sodium 40 mg 04/17/17 06:00 04/18/17 06:34 Protonix Ec Tab PO 40 mg 0600 JENA Administration Potassium Chloride 10 meq 04/16/17 08:00 04/18/17 09:03 Klor-Con 10 PO 10 meq BRK JENA Administration - Patient Studies Lab Studies: Microbiology Studies 04/16/17 10:30 Blood Culture - Preliminary Blood-Venous NO GROWTH AFTER 48 HOURS 04/16/17 10:15 Blood Culture - Preliminary Blood-Venous NO GROWTH AFTER 48 HOURS 04/15/17 21:30 MRSA Culture (Admit) - Final Naris MRSA NOT DETECTED 04/16/17 09:50 Urine Culture - Preliminary Urine Gram Negative Moise Lab Studies 04/18/17 04/18/17 04/17/17 Range/Units 05:20 05:20 21:25 WBC 9.0 D (4.5-11.0) 10^3/ul RBC 3.70 (3.5-6.1) 10^6/uL Hgb 10.5 L (12.0-16.0) g/dL Hct 32.7 L (36.0-48.0) % MCV 88.4 (80.0-105.0) fl MCH 28.4 (25.0-35.0) pg MCHC 32.1 (31.0-37.0) g/dl RDW 16.2 H (11.5-14.5) % Plt Count 159 (120.0-450.0) 10^3/uL MPV 11.1 H (7.0-11.0) fl Gran % 75.2 H (50.0-68.0) % Lymph % (Auto) 16.1 L (22.0-35.0) % [place] % (Auto) 8.5 H (1.0-6.0) % Eos % (Auto) 0.1 L (1.5-5.0) % Baso % (Auto) 0.1 (0.0-3.0) % Gran # 6.74 H (1.4-6.5) Lymph # 1.4 (1.2-3.4) [place] # 0.8 H (0.1-0.6) Eos # 0.0 (0.0-0.7) Baso # 0.01 (0.0-2.0) K/mm3 Sodium 138 (132-148) mmol/L Potassium 3.8 (3.6-5.0) mmol/L Chloride 100 (98-107) mmol/L Carbon Dioxide 32 (21-33) mmol/L Anion Gap 10 (10-20) BUN 13 (7-21) mg/dL Creatinine 0.6 L (0.7-1.2) mg/dL Est GFR ( Amer) > 60 Est GFR (Non-Af Amer) > 60 POC Glucose (mg/dL) 129 H (65-110) mg/dL Random Glucose 110 (70-110) mg/dL Calcium 8.5 (8.4-10.5) mg/dL Phosphorus 2.9 (2.5-4.5) mg/dL Magnesium 2.2 (1.7-2.2) mg/dL Total Bilirubin 1.1 (0.2-1.3) mg/dL AST 28 (14-36) U/L ALT 27 (7-56) U/L Alkaline Phosphatase 67 (38-126) U/L Total Protein 6.6 (5.8-8.3) g/dL Albumin 3.6 (3.0-4.8) g/dL Globulin 3.0 gm/dL Albumin/Globulin Ratio 1.2 (1.1-1.8) Free T3 pg/mL (2.77-5.27) pg/mL 04/17/17 04/17/17 04/17/17 Range/Units 15:55 11:37 07:03 WBC (4.5-11.0) 10^3/ul RBC (3.5-6.1) 10^6/uL Hgb (12.0-16.0) g/dL Hct (36.0-48.0) % MCV (80.0-105.0) fl MCH (25.0-35.0) pg MCHC (31.0-37.0) g/dl RDW (11.5-14.5) % Plt Count (120.0-450.0) 10^3/uL MPV (7.0-11.0) fl Gran % (50.0-68.0) % Lymph % (Auto) (22.0-35.0) % [place] % (Auto) (1.0-6.0) % Eos % (Auto) (1.5-5.0) % Baso % (Auto) (0.0-3.0) % Gran # (1.4-6.5) Lymph # (1.2-3.4) [place] # (0.1-0.6) Eos # (0.0-0.7) Baso # (0.0-2.0) K/mm3 Sodium (132-148) mmol/L Potassium (3.6-5.0) mmol/L Chloride (98-107) mmol/L Carbon Dioxide (21-33) mmol/L Anion Gap (10-20) BUN (7-21) mg/dL Creatinine (0.7-1.2) mg/dL Est GFR ( Amer) Est GFR (Non-Af Amer) POC Glucose (mg/dL) 113 H 112 H (65-110) mg/dL Random Glucose (70-110) mg/dL Calcium (8.4-10.5) mg/dL Phosphorus (2.5-4.5) mg/dL Magnesium (1.7-2.2) mg/dL Total Bilirubin (0.2-1.3) mg/dL AST (14-36) U/L ALT (7-56) U/L Alkaline Phosphatase (38-126) U/L Total Protein (5.8-8.3) g/dL Albumin (3.0-4.8) g/dL Globulin gm/dL Albumin/Globulin Ratio (1.1-1.8) Free T3 pg/mL 2.83 (2.77-5.27) pg/mL Laboratory Results - last 24 hr 04/17/17 04/17/17 04/17/17 07:03 11:37 15:55 WBC RBC Hgb Hct MCV MCH MCHC RDW Plt Count MPV Gran % Lymph % (Auto) [place] % (Auto) Eos % (Auto) Baso % (Auto) Gran # Lymph # [place] # Eos # Baso # Sodium Potassium Chloride Carbon Dioxide Anion Gap BUN Creatinine Est GFR ( Amer) Est GFR (Non-Af Amer) POC Glucose (mg/dL) 112 H 113 H Random Glucose Calcium Phosphorus Magnesium Total Bilirubin AST ALT Alkaline Phosphatase Total Protein Albumin Globulin Albumin/Globulin Ratio Free T3 pg/mL 2.83 04/17/17 04/18/17 04/18/17 21:25 05:20 05:20 WBC 9.0 D RBC 3.70 Hgb 10.5 L Hct 32.7 L MCV 88.4 MCH 28.4 MCHC 32.1 RDW 16.2 H Plt Count 159 MPV 11.1 H Gran % 75.2 H Lymph % (Auto) 16.1 L [place] % (Auto) 8.5 H Eos % (Auto) 0.1 L Baso % (Auto) 0.1 Gran # 6.74 H Lymph # 1.4 [place] # 0.8 H Eos # 0.0 Baso # 0.01 Sodium 138 Potassium 3.8 Chloride 100 Carbon Dioxide 32 Anion Gap 10 BUN 13 Creatinine 0.6 L Est GFR ( Amer) > 60 Est GFR (Non-Af Amer) > 60 POC Glucose (mg/dL) 129 H Random Glucose 110 Calcium 8.5 Phosphorus 2.9 Magnesium 2.2 Total Bilirubin 1.1 AST 28 ALT 27 Alkaline Phosphatase 67 Total Protein 6.6 Albumin 3.6 Globulin 3.0 Albumin/Globulin Ratio 1.2 Free T3 pg/mL Fingerstick Blood Sugar Results: 98 Review of Systems - Constitutional Constitutional: absent: Fever, Chills - EENT Eyes: absent: Blurred Vision, Change in Vision Ears: absent: Tinnitus Nose/Mouth/Throat: absent: Epistaxis, Nasal Congestion, Nasal Discharge - Cardiovascular Cardiovascular: absent: Dyspnea, Edema - Respiratory Respiratory: absent: Cough, Dyspnea - Gastrointestinal Gastrointestinal: absent: Abdominal Pain, Constipation, Cramping, Diarrhea - Musculoskeletal Additional comments: reproducible chest pain secondary to chest compressions, - Integumentary Integumentary: absent: Change in Pigmentation, Dry Skin - Neurological Neurological: absent: Abnormal Movements, Disequilibrium - Psychiatric Psychiatric: absent: Anxiety, Depression - Endocrine Endocrine: absent: Fatigue - Hematologic/Lymphatic Hematologic: absent: Easy Bleeding, Easy Bruising Critical Care Progress Note - Nutrition Nutrition: Nutrition Category Date Time Status Heart Healthy Diet [DIET] Diets 04/15/17 Dinner Ordered Assessment/Plan - Assessment and Plan (Free Text) Assessment: 62 year old female with PMH of hemorrhagic cystitis from NSAIDs, osteoporosis, seasonal allergies, S/P cystoscopy was brought in to [facility] [place] after she apparently had ventricular tachycardia and cardiac arrest requiring CPR in the field. Patient is s/p C with cardiology showing no significant lesion. Cardiology and Electrophysiology evaluated the patient with proposed Takotsubo syndrome as leading culprit for clinical presentation. Patient currently medically managed with ongoing discussions regarding life vest vs ICD. Plan: Neuro: Stable, AAOx3 Pulm: O2 NC, Maintain SaO2 >92% CVS: STEMI s/p LHC - No significant lesion on LHC - Troponin trended down Takotsubo cardiomyopathy vs. Myocarditis unlikely ischemic resulting in arrhythmia - Family pursuing medical management with Lifevest - Amiodarone PO - Lopressor - Echocardiogram: EF 20%, LV borderline dilated, borderline LVH, severe apical and inferolateral hypokinesis, AR, MV mildly thickened - Electrophysiology(Dr. Mooney) consulted - Symptom constellation fits Takotsubo's, rec myocarditis work up - Amio gtt now with plan to transition to oral, BB blockade - Potential need for ICD - Cardiology consulted and following Echo showing EF of 20% concern for Takotsubo cardiomyopathy vs. Myocarditis - ID consulted, appreciate recs - Coxsackie virus, CMV titers, Lyme disease pending - PT/OT GI: Stable, Protonix for GI ppx LFT stable Renal: Hx of hemorrhagic cystitis IVF maintenance Monitor and replace electrolytes as necessary Maintain euvolemia, monitor I&O's Endo: Low TSH - Free T3 and T4 normal ID: Stable, Afebrile, WBC 12.1 ID consulted and following Blood, Urine, Sputum cultures pending Procalcitonin low Heme: H/H stable Continue to monitor SCDs for DVT ppx Case and plan discussed with attending - Date & Time Date: 04/18/17 Time: 11:05 <Jewell POMPA,Inafrank H - Last Filed: 04/18/17 15:19> CCU Objective - Vital Signs / Intake & Output Vital Signs (Last 4 hours): Vital Signs Temp Pulse Resp BP Pulse Ox 04/18/17 12:41 73 31 H 04/18/17 12:40 73 17 04/18/17 12:39 72 13 04/18/17 12:38 69 17 04/18/17 12:37 73 04/18/17 12:36 76 31 H 04/18/17 12:35 71 46 H 04/18/17 12:34 73 18 04/18/17 12:33 76 04/18/17 12:32 78 04/18/17 12:31 77 87 H 04/18/17 12:30 78 32 H 93 L 04/18/17 12:20 70 25 H 95 04/18/17 12:10 63 33 H 96 04/18/17 12:00 98.5 F 68 20 107/75 96 04/18/17 11:50 69 21 95 04/18/17 11:40 68 16 94 L 04/18/17 11:32 68 17 04/18/17 11:31 68 21 04/18/17 11:30 69 18 04/18/17 11:29 68 18 04/18/17 11:28 70 19 04/18/17 11:27 68 18 04/18/17 11:26 68 20 04/18/17 11:25 70 25 H 04/18/17 11:24 70 15 04/18/17 11:23 69 19 04/18/17 11:22 71 20 04/18/17 11:21 72 23 04/18/17 11:20 72 21 Intake and Output (Last 8hrs): Intake & Output 04/18/17 04/18/17 04/18/17 06:59 14:59 22:59 Intake Total 1359 Output Total 625 Balance 734 Intake: IV 859 Left Wrist 180 amiodarone 396 meds 283 Oral 500 Output: Urine 625 Urine, Voided 625 Other: # Bowel Movements 0 - Medications Active Medications: Active Medications Generic Name Dose Route Start Last Admin Trade Name Freq PRN Reason Stop Dose Admin Amiodarone HCl 800 mg 04/16/17 10:00 04/18/17 09:04 Cordarone PO 800 mg BID JENA Administration Benzonatate 100 mg 04/17/17 19:30 04/17/17 20:14 Tessalon Perles PO 100 mg TID PRN Administration Cough Insulin Human Regular 0 units 04/15/17 22:00 04/18/17 12:43 Humulin R High SC Not Given ACHS JENA Protocol Lisinopril 5 mg 04/17/17 10:00 04/18/17 09:04 Zestril PO 5 mg DAILY JENA Administration Magnesium Oxide 400 mg 04/17/17 10:00 04/18/17 09:04 Mag-Ox PO 400 mg DAILY JENA Administration Metoprolol Tartrate 25 mg 04/15/17 21:30 04/18/17 09:03 Lopressor PO 25 mg BID JENA Administration Morphine Sulfate 2 mg 04/17/17 10:37 04/17/17 18:27 Morphine IVP 2 mg Q6H PRN Administration Pain, severe (8-10) Oxycodone/Acetaminophen 1 tab 04/15/17 21:31 04/18/17 10:07 Percocet 5/325 Mg Tab PO 04/18/17 21:32 1 tab Q4H PRN Administration Pain, severe (8-10) Pantoprazole Sodium 40 mg 04/17/17 06:00 04/18/17 06:34 Protonix Ec Tab PO 40 mg 0600 JENA Administration Potassium Chloride 10 meq 04/16/17 08:00 04/18/17 09:03 Klor-Con 10 PO 10 meq BRK JENA Administration - Patient Studies Lab Studies: Microbiology Studies 04/16/17 09:50 Urine Culture - Final Urine Escherichia Coli 04/16/17 10:30 Blood Culture - Preliminary Blood-Venous NO GROWTH AFTER 48 HOURS 04/16/17 10:15 Blood Culture - Preliminary Blood-Venous NO GROWTH AFTER 48 HOURS 04/15/17 21:30 MRSA Culture (Admit) - Final Naris MRSA NOT DETECTED Lab Studies 04/18/17 04/18/17 04/18/17 Range/Units 12:35 08:27 05:20 WBC 9.0 D (4.5-11.0) 10^3/ul RBC 3.70 (3.5-6.1) 10^6/uL Hgb 10.5 L (12.0-16.0) g/dL Hct 32.7 L (36.0-48.0) % MCV 88.4 (80.0-105.0) fl MCH 28.4 (25.0-35.0) pg MCHC 32.1 (31.0-37.0) g/dl RDW 16.2 H (11.5-14.5) % Plt Count 159 (120.0-450.0) 10^3/uL MPV 11.1 H (7.0-11.0) fl Gran % 75.2 H (50.0-68.0) % Lymph % (Auto) 16.1 L (22.0-35.0) % [place] % (Auto) 8.5 H (1.0-6.0) % Eos % (Auto) 0.1 L (1.5-5.0) % Baso % (Auto) 0.1 (0.0-3.0) % Gran # 6.74 H (1.4-6.5) Lymph # 1.4 (1.2-3.4) [place] # 0.8 H (0.1-0.6) Eos # 0.0 (0.0-0.7) Baso # 0.01 (0.0-2.0) K/mm3 Sodium (132-148) mmol/L Potassium (3.6-5.0) mmol/L Chloride (98-107) mmol/L Carbon Dioxide (21-33) mmol/L Anion Gap (10-20) BUN (7-21) mg/dL Creatinine (0.7-1.2) mg/dL Est GFR ( Amer) Est GFR (Non-Af Amer) POC Glucose (mg/dL) 125 H 98 (65-110) mg/dL Random Glucose (70-110) mg/dL Calcium (8.4-10.5) mg/dL Phosphorus (2.5-4.5) mg/dL Magnesium (1.7-2.2) mg/dL Total Bilirubin (0.2-1.3) mg/dL AST (14-36) U/L ALT (7-56) U/L Alkaline Phosphatase (38-126) U/L Total Protein (5.8-8.3) g/dL Albumin (3.0-4.8) g/dL Globulin gm/dL Albumin/Globulin Ratio (1.1-1.8) 04/18/17 04/17/17 04/17/17 Range/Units 05:20 21:25 15:55 WBC (4.5-11.0) 10^3/ul RBC (3.5-6.1) 10^6/uL Hgb (12.0-16.0) g/dL Hct (36.0-48.0) % MCV (80.0-105.0) fl MCH (25.0-35.0) pg MCHC (31.0-37.0) g/dl RDW (11.5-14.5) % Plt Count (120.0-450.0) 10^3/uL MPV (7.0-11.0) fl Gran % (50.0-68.0) % Lymph % (Auto) (22.0-35.0) % [place] % (Auto) (1.0-6.0) % Eos % (Auto) (1.5-5.0) % Baso % (Auto) (0.0-3.0) % Gran # (1.4-6.5) Lymph # (1.2-3.4) [place] # (0.1-0.6) Eos # (0.0-0.7) Baso # (0.0-2.0) K/mm3 Sodium 138 (132-148) mmol/L Potassium 3.8 (3.6-5.0) mmol/L Chloride 100 (98-107) mmol/L Carbon Dioxide 32 (21-33) mmol/L Anion Gap 10 (10-20) BUN 13 (7-21) mg/dL Creatinine 0.6 L (0.7-1.2) mg/dL Est GFR ( Amer) > 60 Est GFR (Non-Af Amer) > 60 POC Glucose (mg/dL) 129 H 113 H (65-110) mg/dL Random Glucose 110 (70-110) mg/dL Calcium 8.5 (8.4-10.5) mg/dL Phosphorus 2.9 (2.5-4.5) mg/dL Magnesium 2.2 (1.7-2.2) mg/dL Total Bilirubin 1.1 (0.2-1.3) mg/dL AST 28 (14-36) U/L ALT 27 (7-56) U/L Alkaline Phosphatase 67 (38-126) U/L Total Protein 6.6 (5.8-8.3) g/dL Albumin 3.6 (3.0-4.8) g/dL Globulin 3.0 gm/dL Albumin/Globulin Ratio 1.2 (1.1-1.8) 04/17/17 Range/Units 11:37 WBC (4.5-11.0) 10^3/ul RBC (3.5-6.1) 10^6/uL Hgb (12.0-16.0) g/dL Hct (36.0-48.0) % MCV (80.0-105.0) fl MCH (25.0-35.0) pg MCHC (31.0-37.0) g/dl RDW (11.5-14.5) % Plt Count (120.0-450.0) 10^3/uL MPV (7.0-11.0) fl Gran % (50.0-68.0) % Lymph % (Auto) (22.0-35.0) % [place] % (Auto) (1.0-6.0) % Eos % (Auto) (1.5-5.0) % Baso % (Auto) (0.0-3.0) % Gran # (1.4-6.5) Lymph # (1.2-3.4) [place] # (0.1-0.6) Eos # (0.0-0.7) Baso # (0.0-2.0) K/mm3 Sodium (132-148) mmol/L Potassium (3.6-5.0) mmol/L Chloride (98-107) mmol/L Carbon Dioxide (21-33) mmol/L Anion Gap (10-20) BUN (7-21) mg/dL Creatinine (0.7-1.2) mg/dL Est GFR ( Amer) Est GFR (Non-Af Amer) POC Glucose (mg/dL) 112 H (65-110) mg/dL Random Glucose (70-110) mg/dL Calcium (8.4-10.5) mg/dL Phosphorus (2.5-4.5) mg/dL Magnesium (1.7-2.2) mg/dL Total Bilirubin (0.2-1.3) mg/dL AST (14-36) U/L ALT (7-56) U/L Alkaline Phosphatase (38-126) U/L Total Protein (5.8-8.3) g/dL Albumin (3.0-4.8) g/dL Globulin gm/dL Albumin/Globulin Ratio (1.1-1.8) Laboratory Results - last 24 hr 04/17/17 04/17/17 04/17/17 11:37 15:55 21:25 WBC RBC Hgb Hct MCV MCH MCHC RDW Plt Count MPV Gran % Lymph % (Auto) [place] % (Auto) Eos % (Auto) Baso % (Auto) Gran # Lymph # [place] # Eos # Baso # Sodium Potassium Chloride Carbon Dioxide Anion Gap BUN Creatinine Est GFR ( Amer) Est GFR (Non-Af Amer) POC Glucose (mg/dL) 112 H 113 H 129 H Random Glucose Calcium Phosphorus Magnesium Total Bilirubin AST ALT Alkaline Phosphatase Total Protein Albumin Globulin Albumin/Globulin Ratio 04/18/17 04/18/17 04/18/17 05:20 05:20 08:27 WBC 9.0 D RBC 3.70 Hgb 10.5 L Hct 32.7 L MCV 88.4 MCH 28.4 MCHC 32.1 RDW 16.2 H Plt Count 159 MPV 11.1 H Gran % 75.2 H Lymph % (Auto) 16.1 L [place] % (Auto) 8.5 H Eos % (Auto) 0.1 L Baso % (Auto) 0.1 Gran # 6.74 H Lymph # 1.4 [place] # 0.8 H Eos # 0.0 Baso # 0.01 Sodium 138 Potassium 3.8 Chloride 100 Carbon Dioxide 32 Anion Gap 10 BUN 13 Creatinine 0.6 L Est GFR ( Amer) > 60 Est GFR (Non-Af Amer) > 60 POC Glucose (mg/dL) 98 Random Glucose 110 Calcium 8.5 Phosphorus 2.9 Magnesium 2.2 Total Bilirubin 1.1 AST 28 ALT 27 Alkaline Phosphatase 67 Total Protein 6.6 Albumin 3.6 Globulin 3.0 Albumin/Globulin Ratio 1.2 04/18/17 12:35 WBC RBC Hgb Hct MCV MCH MCHC RDW Plt Count MPV Gran % Lymph % (Auto) [place] % (Auto) Eos % (Auto) Baso % (Auto) Gran # Lymph # [place] # Eos # Baso # Sodium Potassium Chloride Carbon Dioxide Anion Gap BUN Creatinine Est GFR ( Amer) Est GFR (Non-Af Amer) POC Glucose (mg/dL) 125 H Random Glucose Calcium Phosphorus Magnesium Total Bilirubin AST ALT Alkaline Phosphatase Total Protein Albumin Globulin Albumin/Globulin Ratio Critical Care Progress Note - Nutrition Nutrition: Nutrition Category Date Time Status Heart Healthy Diet [DIET] Diets 04/15/17 Dinner Ordered Attending/Attestation - Attestation I have personally seen and examined this patient.: Yes I have fully participated in the care of the patient.: Yes I have reviewed all pertinent clinical information: Yes Notes (Text): 04/18/17 15:18 62 y/o F w/ New onset cardiomyopahy w/ EF 20%. Off amiodarone ggt to P.O and Lopressor. Cardiology and EP following closely. Plan for Life vest placement. R/O myocarditis . Cardiac Rehab needed.. Cardiac cath done- no found coronary occlusion. Electrolytes improved. MG> 2 and K > 4. dvt p ppi cc time 45 min
[2017-04-18] MEDS ORDERED: Potassium Chloride 20 mEq/15 ml LIQ UD PO STA (11:34)
--- NOTE | 2017-04-18 13:32 | PN ---
SUBJECTIVE: The patient is a 62-year-old female status post chest pain, status post cardiac arrest, who received CPR as well as shock for V-tach, currently lying in bed, more comfortable. PHYSICAL EXAMINATION: VITAL SIGNS: Blood pressure is at this point 128/97, temperature is 98.2, pulse rate is 69, O2 saturation is 82% at this point. HEENT: Normocephalic and atraumatic. CARDIOVASCULAR: Regular rate and rhythm. S1 and S2 appreciated. There is no murmur appreciated at this point. ABDOMEN: Nondistended and nontender. Positive bowel sounds. EXTREMITIES: Peripheral pulses are +2 with no pitting edema. ASSESSMENT: 1. Status post cardiac arrhythmia. 2. Status post ventricular tachycardia. 3. ST-elevation myocardial infarction. 4. Possible cardiomyopathy. PLAN: At this point, we will continue cardiac management with this patient. Also, we will continue her arrhythmia medication in which she is receiving metoprolol as well as potassium as well as amiodarone as well as lisinopril and we will watch her very closely. Gerald Leavitt MD
--- NOTE | 2017-04-18 15:25 | PN ---
CARDIOLOGY FOLLOWUP DATE: 04/18/2017 SUBJECTIVE: The patient is comfortable in bed. No recurrent VT. OBJECTIVE: VITAL SIGNS: Blood pressure is 107/75 and heart rate in the 70s. NECK: Negative JVD. LUNGS: Without rales. HEART: S1 and S2. EXTREMITIES: Without edema. LABORATORY DATA: Hemoglobin is 10.5. Chemistries, potassium is 3.8. IMPRESSION: 1. Status post cardiac arrest x2. 2. History of monomorphic ventricular tachycardia. 3. Cardiomyopathy consistent with Takotsubo cardiomyopathy. 4. Marked abnormal EKG. 5. Diabetes mellitus. PLAN: Given these findings, we will continue her amiodarone p.o. and beta-blockers. We will stop the IV amiodarone today. We will observe in the unit for the next 24 hours. The plans are to get the patient home on antiarrhythmics as well as with a LifeVest, which will be arranged for by Dr. Burns. Philip Gillespie MD
[2017-04-19 00:18] LABS: CYTOMEGALOVIRUS AB (IGG) >10.00 U/mL
[2017-04-19 00:35] LABS: CYTOMEGALOVIRUS AB (IGM) <30.00 AU/mL
[2017-04-19] MEDS: Morphine 2 mg/ml ISec IVP PRN (05:34)
[2017-04-19] MEDS: Pantoprazole 40 mg EC Tab PO SCH (05:35)
[2017-04-19 05:49] LABS: ALB/GLOB RATIO 1.2 (1.1-1.8); ALKALINE PHOSPHATASE 65 U/L (38-126); ALT/SGPT 34 U/L (7-56); AST/SGOT 21 U/L (14-36); BILIRUBIN,TOTAL 1.1 mg/dL (0.2-1.3); BLOOD UREA NITROGEN 13 mg/dL (7-21); CALCIUM 8.6 mg/dL (8.4-10.5); CARBON DIOXIDE 34 mmol/L (21-33); CHLORIDE 102 mmol/L (98-107); GFR AFRICAN-AMERICAN > 60; GLUCOSE,RANDOM 97 mg/dL (70-110); MAGNESIUM 2.2 mg/dL (1.7-2.2); PHOSPHOROUS 3.2 mg/dL (2.5-4.5); POTASSIUM 3.8 mmol/L (3.6-5.0); SODIUM 141 mmol/L (132-148); TOTAL PROTEIN 6.7 g/dL (5.8-8.3)
[2017-04-19 05:54] LABS: BASO # 0.01 K/mm3 (0.0-2.0); BASO % 0.2 % (0.0-3.0); EOS # 0.1 (0.0-0.7); EOS % 0.9 % (1.5-5.0); GRAN # 4.14 (1.4-6.5); GRAN % 62.4 % (50.0-68.0); HEMATOCRIT 33.8 % (36.0-48.0); LYMPH # 1.8 (1.2-3.4); LYMPH % 27.5 % (22.0-35.0); MEAN CELL VOLUME 89.2 fl (80.0-105.0); MEAN CORPUSCULAR HGB CONC 31.4 g/dl (31.0-37.0); MEAN PLATELET VOLUME 10.6 fl (7.0-11.0); MONO # 0.6 (0.1-0.6); RED CELL DISTRIBUTION WIDTH 16.2 % (11.5-14.5); WHITE BLOOD COUNT 6.6 10^3/ul (4.5-11.0)
[2017-04-19] MEDS: Insulin Reg-HIGH-Coverage SC SCH ×4 (07:30→21:56)
[2017-04-19] MEDS: Potassium Chloride 10 mEq ER Tab PO SCH (08:13)
--- NOTE | 2017-04-19 08:42 | PN ---
DATE: 04/19/2017 SUBJECTIVE: The patient is in room 128, bed 4. The patient had an uneventful night, seen earlier. No fevers or chills. PHYSICAL EXAMINATION: VITAL SIGNS: Temperature is 98, blood pressure is 112/60, and respiratory rate of 18. HEENT: Examination of HEENT is unremarkable. NECK: Supple. LUNGS: Have decreased breath sounds. HEART: Normal S1 and S2. GASTROINTESTINAL: Abdominal examination is soft and nontender. LABORATORY DATA: Examination reveals a white count of 6.6, hemoglobin of 10, and platelets of 163. Chemistries reveals a BUN of 13, creatinine of 0.6, and procalcitonin of 0.05. Urinalysis is noted. Troponin level negative and initial one was 0.13. CMV IgG is positive, greater than 10. CMV IgM is negative. ASSESSMENT AND PLAN: This is a 62-year-old female with systemic inflammatory response syndrome, dilated cardiomyopathy who is status post cardiac catheterization in a patient with Takotsubo syndrome, no evidence of sepsis in a patient with history of osteoporosis and a Gram-negative tamra in the urine with a negative urinalysis, currently off of antibiotics. Because of her age of 62, we will order an human immunodeficiency virus test the Escherichia coli in the urine is reported to be pansensitive, does not require treatment asymptomatic bacteriuria with a normal urinalysis and no symptoms, we will continue observe off of antibiotics. We will check on her human immunodeficiency virus test. Elroy Cárdenas MD
[2017-04-19] MEDS ORDERED: Potassium Chloride 20 mEq ER Tab PO ONE (10:24)
[2017-04-19] MEDS: Magnesium Oxide 400 mg Tab UD PO SCH (11:07)
[2017-04-19] MEDS: Oxycodone/Acetaminophen 5/325 mg Tab PO PRN ×2 (14:06→21:52)
--- NOTE | 2017-04-19 15:28 | PN ---
SUBJECTIVE: The patient is a 62-year-old female, currently in the CCU, status post chest pain as well as cardiac arrest. Currently, much more comfortable, is having still pain more on the right side than the left side; however, not having any nausea or vomiting. She is tolerating p.o. intake. At this point, I did explain to her that she was doing much better. PHYSICAL EXAMINATION: VITAL SIGNS: Blood pressure is currently 102/51, pulse rate of 74 and temperature of 98. HEENT: Normocephalic and atraumatic. [place] conjunctivae. Nonicteric sclerae. NECK: No JVD. No thyromegaly. CARDIOVASCULAR: Regular rate and rhythm. S1 and S2 appreciated. No S3 noted. LUNGS: Bilateral air entry is positive. No wheezes, no rhonchi at this point; however, there is pain on respiration. LABORATORY DATA: WBC of 6.6, hemoglobin of 10.6, hematocrit of 33.8 and platelets of 163. Chemistry within normal limits at this point. ASSESSMENT: 1. Status post cardiac arrhythmia. 2. Status post ventricular tachycardia. 3. ST-elevation myocardial infarction. 4. Cardiomyopathy. PLAN: Did discussed with the slasher sawyer at this point, who was taking care of the case, which is Dr. Philip Gillespie. We will continue the amiodarone. We will continue the potassium as well as metoprolol and her potassium replacements and we will watch her very closely and most likely we will transfer her out of the ICU today or tomorrow. Gerald Leavitt MD
--- NOTE | 2017-04-19 17:51 | PN ---
DATE: 04/19/2017 LOCATION: The patient in ICU 128, bed 4. This progress note is being dictated on behalf of Dr. Gillespie, whom I am covering. REASON FOR CONSULTATION: Status post cardiac arrest, history of monomorphic ventricular tachycardia, cardiomyopathy consistent with Takotsubo cardiomyopathy. SUBJECTIVE: The patient lying flat in bed without any chest pain, shortness of breath, or palpitation. PHYSICAL EXAMINATION: VITAL SIGNS: Blood pressure 102/51, respiration 17, pulse 73. The patient is afebrile. HEENT: Head is normocephalic. Eyes: Pupils normal. Conjunctivae slightly pale. NECK: JVP low. Carotids equal. THORAX: AP diameter normal. CARDIOVASCULAR: S1 and S2. LUNGS: Clear. ABDOMEN: Soft. No tenderness. No organomegaly. Bowel sounds are normal. EXTREMITIES: No clubbing, no cyanosis. LABORATORY DATA: WBC 6.6, hemoglobin 10.6, hematocrit 33.8, platelet 163. Sodium 141, potassium 3.8, BUN 13, creatinine 0.6. Calcium, phosphorus, magnesium normal. Total protein and albumin normal. DIAGNOSES: 1. Status post cardiac arrest x2. 2. History of monomorphic ventricular tachycardia. 3. Cardiomyopathy, consistent with Takotsubo cardiomyopathy. 4. Markedly abnormal electrocardiogram. 5. Diabetes mellitus. MEDICATIONS: The patient is on amiodarone 800 mg p.o. b.i.d., potassium 10 mEq p.o. daily, metoprolol 25 b.i.d., magnesium oxide 400 mg p.o. daily, lisinopril 5 mg daily. PLAN: We will continue present therapy and we will follow with you. Yoseph Coker MD
[2017-04-20 06:13] LABS: BASO # 0.01 K/mm3 (0.0-2.0); BASO % 0.2 % (0.0-3.0); EOS # 0.1 (0.0-0.7); EOS % 1.1 % (1.5-5.0); GRAN # 3.62 (1.4-6.5); GRAN % 55.2 % (50.0-68.0); HEMATOCRIT 34.1 % (36.0-48.0); LYMPH # 2.3 (1.2-3.4); LYMPH % 35.5 % (22.0-35.0); MEAN CELL VOLUME 88.8 fl (80.0-105.0); MEAN CORPUSCULAR HEMOGLOBIN 27.9 pg (25.0-35.0); MEAN CORPUSCULAR HGB CONC 31.4 g/dl (31.0-37.0); MEAN PLATELET VOLUME 10.5 fl (7.0-11.0); MONO # 0.5 (0.1-0.6); RED CELL DISTRIBUTION WIDTH 16.2 % (11.5-14.5); WHITE BLOOD COUNT 6.5 10^3/ul (4.5-11.0)
[2017-04-20 06:17] LABS: ALB/GLOB RATIO 1.2 (1.1-1.8); ALKALINE PHOSPHATASE 69 U/L (38-126); ALT/SGPT 26 U/L (7-56); AST/SGOT 37 U/L (14-36); BILIRUBIN,TOTAL 0.9 mg/dL (0.2-1.3); BLOOD UREA NITROGEN 13 mg/dL (7-21); CALCIUM 8.6 mg/dL (8.4-10.5); CARBON DIOXIDE 31 mmol/L (21-33); CHLORIDE 102 mmol/L (98-107); GFR AFRICAN-AMERICAN > 60; GLUCOSE,RANDOM 102 mg/dL (70-110); MAGNESIUM 2.2 mg/dL (1.7-2.2); PHOSPHOROUS 3.8 mg/dL (2.5-4.5); POTASSIUM 3.6 mmol/L (3.6-5.0); SODIUM 140 mmol/L (132-148); TOTAL PROTEIN 6.6 g/dL (5.8-8.3)
[2017-04-20] MEDS: Potassium Chloride 10 mEq ER Tab PO SCH (07:54)
[2017-04-20] MEDS: Oxycodone/Acetaminophen 5/325 mg Tab PO PRN ×2 (07:54→19:29)
[2017-04-20] MEDS: Magnesium Oxide 400 mg Tab UD PO SCH (09:44)
[2017-04-20] MEDS: Insulin Reg-HIGH-Coverage SC SCH (09:45)
--- NOTE | 2017-04-20 10:07 | PN ---
DATE: 04/20/2017 SUBJECTIVE: The patient is seen in bed, in no acute distress, early this morning, comfortable, awake and alert, doing well, much improved. OBJECTIVE: VITAL SIGNS: On exam, temperature is 97, blood pressure is 111/50, respiratory of 18, heart rate of 73. EXAMINATION OF HEENT: Unremarkable. NECK: Supple. LUNGS: Have decreased breath sounds. HEART EXAM: Normal S1 and S2. ABDOMINAL EXAMINATION: Soft. LABORATORY EXAMINATION: Reveals a white count of 6.5, hemoglobin of 10, platelets of 189. Coagulation is noted. Chemistries reveal a creatinine of 0.6. ASSESSMENT AND PLAN: A 62-year-old with systemic inflammatory response syndrome, dilated cardiomyopathy, status post cardiac catheterization in a patient with Takotsubo syndrome, no evidence of sepsis with Escherichia coli in the urine, no urinary symptoms and currently off of antibiotics, afebrile. Review of orders reveals the human immunodeficiency virus is pending, Lyme and Coxsackie serologies are pending and blood cultures are reported to be negative and no antibiotics; at this point, the patient is at risk for developing nosocomial infections. Elroy Cárdenas MD
[2017-04-20] MEDS ORDERED: Potassium Chloride 20 mEq ER Tab PO ONE ×2 (11:00→14:00)
--- NOTE | 2017-04-20 11:13 | PN ---
SUPERVISOR RIDES NOTE DATE: 04/20/2017 SUBJECTIVE: The patient is resting in bed, actually sitting on the edge of the bed up, ready for her breakfast. No complaints of any chest pain, shortness of breath, cough, wheezing. No fever, chills, nausea, or vomiting. The patient has her LifeVest now and most likely today will be transferred to telemetry. PHYSICAL EXAMINATION: VITAL SIGNS: Noted her temperature is 97, her pulse is 73, respirations are 18, and blood pressure is 111/59. SKIN: Warm and dry. HEENT: Head is atraumatic and normocephalic. Eyes reactive to light. Ears, nose, and throat seemed to be within normal limits. NECK: Supple. No JVD. No thyroid enlargement. No lymph nodes. HEART: Regular rate and rhythm. Normal S1 and S2. LUNGS: Revealed good breath sounds bilaterally. ABDOMEN: Soft and nontender. Normal bowel sounds. No organomegaly noted. GENITALIA: Deferred. RECTAL: Deferred. MUSCULOSKELETAL: No joint deformities. EXTREMITIES: Revealed no significant edema. NEUROLOGICAL: She seemed to be grossly intact. LABORATORY DATA: Her white count is 6.5, hemoglobin is 10.7, hematocrit 34.1, with platelets of 189,000. Sodium is 140, potassium is 3.6, chloride 102, CO2 of 31, BUN of 13, creatinine of 0.6, and glucose of 102. IMPRESSION: This patient is status post cardiac arrest x2. She has a history of ventricular tachycardia as well as cardiomyopathy. The patient has diabetes as well. PLAN: We will continue her present medications. The patient is on lipase at this time and doing well. We will schedule her for transfer to telemetry and continue to treat aggressively and follow closely along with the other consultants and primary care doctor. Crow Bartlett MD
--- NOTE | 2017-04-20 15:51 | PN ---
DATE: 04/20/2017 LOCATION: The patient in ICU room 128, bed 4. This progress note is being dictated on behalf of Dr. Gillespie, whom I am covering. REASON FOR CONSULTATION AND FOLLOWUP: Status post cardiac arrest, history of monomorphic ventricular tachycardia, cardiomyopathy consistent with Takotsubo cardiomyopathy. SUBJECTIVE: The patient is sitting comfortably in bed without any chest pain, shortness of breath, or palpitation. PHYSICAL EXAMINATION VITAL SIGNS: Blood pressure is 146/80, respirations 18, pulse 64, and the patient is afebrile. HEENT: Head is normocephalic. Eyes: Pupils normal. Conjunctivae slightly pale. NECK: JVP low. Carotids equal. THORAX: AP diameter is normal. CARDIOVASCULAR: S1 and S2. LUNGS: Clear. ABDOMEN: Soft. No tenderness. No organomegaly. Bowel sounds are normal. EXTREMITIES: No clubbing. No cyanosis. LABORATORY DATA: WBC 6.5, hemoglobin 10.7, hematocrit 34.1, and platelet 189. Sodium 140, potassium 3.6, BUN 13, and creatinine 0.6. Calcium, phosphorus, and magnesium is normal. Total protein and albumin normal. DIAGNOSES: 1. Status post cardiac arrest x2. 2. History of monomorphic ventricular tachycardia. 3. Cardiomyopathy consistent with Takotsubo cardiomyopathy. 4. Markedly abnormal cardiogram. 5. Diabetes mellitus. PLAN: We will give extra potassium to the patient to bring the potassium close to 4. We will give extra K-Dur 40 mEq p.o. today. The patient is already getting 10 mEq p.o. daily, metoprolol 25 b.i.d., amiodarone 800 mg b.i.d., and lisinopril 5 mg daily. The patient already has been LifeVest and will be transferred to telemetry. Yoseph Coker MD
[2017-04-21] MEDS: Oxycodone/Acetaminophen 5/325 mg Tab PO PRN ×3 (05:48→19:59)
[2017-04-21 06:29] LABS: BASO # 0.01 K/mm3 (0.0-2.0); BASO % 0.2 % (0.0-3.0); EOS # 0.1 (0.0-0.7); EOS % 1.4 % (1.5-5.0); GRAN # 3.17 (1.4-6.5); GRAN % 54.4 % (50.0-68.0); HEMATOCRIT 36.5 % (36.0-48.0); LYMPH # 2.2 (1.2-3.4); MEAN CELL VOLUME 88.8 fl (80.0-105.0); MEAN CORPUSCULAR HEMOGLOBIN 28.2 pg (25.0-35.0); MEAN CORPUSCULAR HGB CONC 31.8 g/dl (31.0-37.0); MEAN PLATELET VOLUME 10.7 fl (7.0-11.0); MONO # 0.4 (0.1-0.6); RED CELL DISTRIBUTION WIDTH 16.2 % (11.5-14.5); WHITE BLOOD COUNT 5.8 10^3/ul (4.5-11.0)
[2017-04-21 06:57] LABS: ALB/GLOB RATIO 1.2 (1.1-1.8); ALKALINE PHOSPHATASE 76 U/L (38-126); ALT/SGPT 30 U/L (7-56); AST/SGOT 25 U/L (14-36); BLOOD UREA NITROGEN 13 mg/dL (7-21); CALCIUM 9.1 mg/dL (8.4-10.5); CARBON DIOXIDE 31 mmol/L (21-33); CHLORIDE 103 mmol/L (95-110); GFR AFRICAN-AMERICAN > 60; GLUCOSE,RANDOM 105 mg/dL (70-110); MAGNESIUM 2.1 mg/dL (1.7-2.2); PHOSPHOROUS 4.2 mg/dL (2.5-4.5); POTASSIUM 4.8 mmol/L (3.6-5.0); SODIUM 141 mmol/L (132-148); TOTAL PROTEIN 7.2 g/dL (5.8-8.3)
--- NOTE | 2017-04-21 08:39 | PN ---
DATE: 04/20/2017 SUBJECTIVE: I saw Lana in the intensive care unit with freight agent Dr. Coker. She is doing much better. She has a LifeVest on. She is currently on Colace, Cordarone, insulin, potassium, Lopressor, magnesium, morphine, Percocet, Tessalon and Zestril. She is much better, when I saw her 4 days ago. She is on good spirits. She is feeling well, breathing well. No chest pain or shortness of breath and she might be able to get out in the next 24 hours. PHYSICAL EXAMINATION: VITAL SIGNS: She has 97 temperature, 73 pulse, 106/70 blood pressure, 22 respiratory rate, 98% O2 sat on room air. HEENT: Head is atraumatic, normocephalic. HEART: Regular rate. LUNGS: Clear to auscultation. ABDOMEN: Soft. EXTREMITIES: No edema. NEUROLOGIC: She is quite comfortable. LABORATORY DATA: She has a 6.5 white count, 10.7 hemoglobin, 34.1 hematocrit with 189 platelets. Sodium 140, potassium 3.6, BUN 13, creatinine 0.6. GFR is greater than 60. Sugar is 102, calcium 8.6, phosphorus 3.8, magnesium 0.2, total bilirubin is 0.9, AST is 37, ALT is 26, alkaline phosphate is 9, total protein is 6.6. Urine is few. ASSESSMENT AND PLAN: She is being seen by parking enforcer, Infectious Disease, Cardiology. She is here for "heart," ST elevation myocardial infarction, syncope, low potassium, hypertension, systemic inflammatory response syndrome, dilated cardiomyopathy. We will continue with aggressive treatment and care. Roshan Armstrong DO
--- NOTE | 2017-04-21 09:09 | PN ---
DATE: 04/19/2017 RESPIRATORY PHYSICIAN NOTE SUBJECTIVE: The patient is awake and alert, states that she continues to have some intermittent chest pain, was given morphine few minutes prior and it is starting to work and she is feeling better. She has no complaints of increased shortness of breath, cough, wheezing, or chest congestion. No fever, chills, nausea, or vomiting. PHYSICAL EXAMINATION: VITAL SIGNS: Note that her temperature is 98.5, her pulse is 80, respirations are 17, and blood pressure is 112/62. SKIN: Warm and dry. HEENT: Head is atraumatic and normocephalic. Eyes are reactive to light. Ears, nose and throat seemed to within normal limits. NECK: Supple. No JVD, no thyroid enlargement. No lymph nodes. HEART: Regular rate and rhythm. Normal S1 and S2. LUNGS: Reveal good breath sounds bilaterally. ABDOMEN: Soft, nontender. Normal bowel sounds. No organomegaly noted. GENITALIA: Deferred. RECTAL: Deferred. MUSCULOSKELETAL: No joint deformities. EXTREMITIES: Reveal trace lower extremity edema. NEUROLOGICAL: She seems to be grossly intact. LABORATORY DATA: As far as her laboratory is concerned, her white count is 6.6, hemoglobin is 10.6, her hematocrit is 33.8 with platelets of 163,000. Sodium is 141, potassium is 3.8, chloride 102, CO2 of 34 with a BUN of 13, and creatinine of 0.6. IMPRESSION: As far as my impression, this patient initially presented with ST-segment elevation myocardial infarction and had cardiopulmonary resuscitation x2. The patient also has ventricular tachycardia. She has cardiomyopathy with an ejection fraction of approximately 15%, history of diabetes and anemia. The patient at this time is stable and is waiting for LifeVest. PLAN: As far as our plan, we will continue to monitor closely the patient. We will continue on amiodarone, as well as, Lopressor and is getting morphine for pleuritic chest pain. She is also getting Protonix EC. The patient is waiting LifeVest and will be monitored closely and we will continue to treat aggressively along with the other consultants and the primary care doctor. Crow Bartlett MD [facility] # [id number]
[2017-04-21] MEDS: Potassium Chloride 10 mEq ER Tab PO SCH (11:36)
[2017-04-21] MEDS: Magnesium Oxide 400 mg Tab UD PO SCH (11:37)
--- NOTE | 2017-04-21 12:08 | PN ---
DATE: 04/21/2017 SUBJECTIVE: The patient has not had recurrent monomorphic VT since been on amiodarone and correction of electrolytes. PHYSICAL EXAMINATION: VITAL SIGNS: Blood pressure is 140/60, heart rate in the 80s. NECK: Negative JVD. LUNGS: Without rales. HEART: S1 and S2. EXTREMITIES: Without edema. LABORATORY DATA: Potassium is 4.8, magnesium is 2.1 with a hemoglobin of 11.6. IMPRESSION: 1. Status post cardiac arrest secondary to multiple episodes of monomorphic ventricular tachycardia secondary to Takotsubo's cardiomyopathy. 2. Multiple episodes of monomorphic ventricular tachycardia. 3. Takotsubo's cardiomyopathy. 4. Hypertension. 5. Hypercholesterolemia. 6. Weakness. The patient was brought down for possible stress test to test her rhythmic load with exercise. The patient is unable to be on a treadmill due to her weakness. The patient would benefit from her stay in TCU. We will arrange for transfer to the TCU. The patient now has her to help protect from recurrent VT. Philip Gillespie MD
[2017-04-21 13:05] LABS: 18 KD (IGG) BAND Nonreactive; 23 KD (IGG) BAND Nonreactive; 23 KD (IGM) BAND Nonreactive; 28 KD (IGG) BAND Nonreactive; 30 KD (IGG) BAND Nonreactive; 39 KD (IGG) BAND Nonreactive; 39 KD (IGM) BAND Nonreactive; 41 KD (IGG) BAND Nonreactive; 41 KD (IGM) BAND Nonreactive; 45 KD (IGG) BAND Nonreactive; 58 KD (IGG) BAND Nonreactive; 66 KD (IGG) BAND Nonreactive; 93 KD (IGG) BAND Nonreactive; LYME DISEASE INTERP (IGG) Negative (Negative)
--- NOTE | 2017-04-21 13:19 | PN ---
DATE: SUBJECTIVE: I saw Lana sitting up in bed. She is now on telemetry. She is out of the Intensive Care Unit. I saw her there yesterday in the Intensive Care Unit. She is weak. She walked a little bit and she got very weak, so did not have physical therapy, but she is LifeVest. She might need rehab before she goes home. She is trying to eat better. PHYSICAL EXAMINATION: VITAL SIGNS: She has a 98.4 temperature, 81 pulse, 140/59 blood pressure, 20 respiratory rate, and 96% O2 saturation on room air. HEENT: Head is atraumatic and normocephalic. Throat is moist. NECK: Supple. HEART: Regular rate. LUNGS: Decreased breath sounds, but clear. ABDOMEN: Soft. EXTREMITIES: No edema. MEDICATIONS: She is currently on Colace, Cordarone, potassium, Lopressor, magnesium, morphine, Percocet, Tessalon, and Zestril. LABORATORY DATA: She has a 5.8 white count, 11.6 hemoglobin, 36.5 hematocrit with 219 platelets. Sodium of 141, potassium of 4.8, BUN is 13, and creatinine is 0.6. GFR is greater than 60. Sugar is 105, calcium is 9.1, phosphorous is 4.2, and magnesium is 2.1. Total bilirubin is 1, AST is 25, ALT is 30, alkaline phosphatase is 76, and total protein is 7.2. ASSESSMENT AND PLAN: She has been seen by Cardiology, Pulmonary and Infectious Disease. I believe, she might need to have some rehab before she goes home as per Cardiology plan. The recommendation for her cardiac rehab as per Cardiology upon discharge timing. We will check her labs tomorrow and encourage physical therapy. heart, ST-elevation myocardial infarction, syncopal, low potassium, hypertension, systemic inflammatory response syndrome, and dilated cardiomyopathy. Roshan Armstrong DO MTDKamar
--- NOTE | 2017-04-21 18:22 | CP.PCM.PN ---
Subjective - Date & Time of Evaluation Date of Evaluation: 04/21/17 Time of Evaluation: 17:00 - Subjective Subjective: Comfortable, not in distress. Objective - Vital Signs/Intake and Output Vital Signs (last 24 hours): Temp Pulse Resp BP Pulse Ox 99.1 F 72 18 140/79 96 04/21/17 12:00 04/21/17 12:00 04/21/17 12:00 04/21/17 12:00 04/21/17 06:00 Intake and Output: 04/21/17 04/21/17 06:59 18:59 Intake Total 480 480 Balance 480 480 - Medications Medications: Current Medications Amiodarone HCl (Cordarone) 400 mg PO BID [facility] Benzonatate (Tessalon Perles) 100 mg PO TID PRN PRN Reason: Cough Last Admin: 04/21/17 05:58 Dose: 100 mg Docusate Sodium (Colace) 100 mg PO BID [facility] Last Admin: 04/21/17 11:37 Dose: 100 mg Lisinopril (Zestril) 5 mg PO DAILY [facility] Last Admin: 04/21/17 11:37 Dose: 5 mg Magnesium Oxide (Mag-Ox) 400 mg PO DAILY [facility] Last Admin: 04/21/17 11:37 Dose: 400 mg Metoprolol Tartrate (Lopressor) 25 mg PO BID [facility] Last Admin: 04/21/17 11:36 Dose: 25 mg Oxycodone/Acetaminophen (Percocet 5/325 Mg Tab) 1 tab PO Q4H PRN PRN Reason: Pain, moderate (4-7) Stop: 04/22/17 11:15 Last Admin: 04/21/17 13:38 Dose: 1 tab Potassium Chloride (Klor-Con 10) 10 meq PO BRK [facility] Last Admin: 04/21/17 11:36 Dose: 10 meq - Labs Labs: 04/21/17 06:20 04/21/17 06:20 PT 11.2 Seconds (9.9-11.8) 04/15/17 22:32 INR 1.04 (0.93-1.08) 04/15/17 22:32 APTT 49.1 Seconds (23.7-30.8) H 04/15/17 22:32 - Constitutional Appears: Non-toxic - Head Exam Head Exam: NORMAL INSPECTION - Neck Exam Neck Exam: absent: Meningismus - Respiratory Exam Respiratory Exam: Decreased Breath Sounds - Cardiovascular Exam Cardiovascular Exam: +S1, +S2 - GI/Abdominal Exam GI & Abdominal Exam: Soft. absent: Tenderness Assessment and Plan - Assessment and Plan (Free Text) Plan: Assessment Systemic Inflammatory Response Syndrome, consider acute stress reaction from dilated cardiomyopathy S/P cardiac cath in a patient with probable Takotsubo syndrome; so far no sepsis source has been identified hemorrhagic cystitis from NSAIDs osteoporosis seasonal allergies S/P cystoscopy Plan follow up blood, urine cx; PCT is only 0.05; CXR did not show infiltrates - will continue to monitor off antibiotics for now and trend WBC count follow up Coxscakie serologies; Lyme tests are negative, HIV test is negative as well will continue to monitor clinically reviewed further Cardiology evaluation
[2017-04-22] MEDS: Potassium Chloride 10 mEq ER Tab PO SCH (08:13)
[2017-04-22 08:44] LABS: BASO # 0.02 K/mm3 (0.0-2.0); BASO % 0.3 % (0.0-3.0); EOS # 0.1 (0.0-0.7); EOS % 1.1 % (1.5-5.0); GRAN # 3.37 (1.4-6.5); GRAN % 53.3 % (50.0-68.0); HEMATOCRIT 36.9 % (36.0-48.0); LYMPH # 2.3 (1.2-3.4); LYMPH % 36.5 % (22.0-35.0); MEAN CELL VOLUME 88.9 fl (80.0-105.0); MEAN CORPUSCULAR HEMOGLOBIN 28.2 pg (25.0-35.0); MEAN CORPUSCULAR HGB CONC 31.7 g/dl (31.0-37.0); MEAN PLATELET VOLUME 10.9 fl (7.0-11.0); MONO # 0.6 (0.1-0.6); MONO % 8.8 % (1.0-6.0); RED CELL DISTRIBUTION WIDTH 16.2 % (11.5-14.5); WHITE BLOOD COUNT 6.3 10^3/ul (4.5-11.0)
[2017-04-22 09:03] LABS: ALB/GLOB RATIO 1.3 (1.1-1.8); ALKALINE PHOSPHATASE 71 U/L (38-126); ALT/SGPT 30 U/L (7-56); AST/SGOT 18 U/L (14-36); BILIRUBIN,TOTAL 0.9 mg/dL (0.2-1.3); BLOOD UREA NITROGEN 16 mg/dL (7-21); CALCIUM 9.2 mg/dL (8.4-10.5); CARBON DIOXIDE 29 mmol/L (21-33); CHLORIDE 102 mmol/L (98-107); GFR AFRICAN-AMERICAN > 60; GLUCOSE,RANDOM 99 mg/dL (70-110); POTASSIUM 4.4 mmol/L (3.6-5.0); SODIUM 141 mmol/L (132-148); TOTAL PROTEIN 7.2 g/dL (5.8-8.3)
[2017-04-22] MEDS: Magnesium Oxide 400 mg Tab UD PO SCH (10:58)
--- NOTE | 2017-04-22 11:22 | CP.PCM.PN ---
Subjective - Date & Time of Evaluation Date of Evaluation: 04/22/17 Time of Evaluation: 10:25 - Subjective Subjective: Comfortable, no fevers, not in distress. Objective - Vital Signs/Intake and Output Vital Signs (last 24 hours): Temp Pulse Resp BP Pulse Ox 99.1 F 69 18 128/82 95 04/22/17 06:00 04/22/17 06:00 04/22/17 06:00 04/22/17 06:00 04/22/17 06:00 Intake and Output: 04/22/17 04/22/17 06:59 18:59 Intake Total 120 Balance 120 - Medications Medications: Current Medications Amiodarone HCl (Cordarone) 400 mg PO BID [facility] Last Admin: 04/21/17 18:31 Dose: 400 mg Benzonatate (Tessalon Perles) 100 mg PO TID PRN PRN Reason: Cough Last Admin: 04/21/17 05:58 Dose: 100 mg Docusate Sodium (Colace) 100 mg PO BID [facility] Last Admin: 04/21/17 18:30 Dose: 100 mg Lisinopril (Zestril) 5 mg PO DAILY [facility] Last Admin: 04/21/17 11:37 Dose: 5 mg Magnesium Oxide (Mag-Ox) 400 mg PO DAILY [facility] Last Admin: 04/21/17 11:37 Dose: 400 mg Metoprolol Tartrate (Lopressor) 25 mg PO BID [facility] Last Admin: 04/21/17 18:32 Dose: 25 mg Oxycodone/Acetaminophen (Percocet 5/325 Mg Tab) 1 tab PO Q4H PRN PRN Reason: Pain, moderate (4-7) Stop: 04/22/17 11:15 Last Admin: 04/21/17 19:59 Dose: 1 tab Potassium Chloride (Klor-Con 10) 10 meq PO BRK [facility] Last Admin: 04/22/17 08:13 Dose: 10 meq - Labs Labs: 04/22/17 08:15 04/22/17 08:15 PT 11.2 Seconds (9.9-11.8) 04/15/17 22:32 INR 1.04 (0.93-1.08) 04/15/17 22:32 APTT 49.1 Seconds (23.7-30.8) H 04/15/17 22:32 - Constitutional Appears: Non-toxic - Head Exam Head Exam: NORMAL INSPECTION - ENT Exam ENT Exam: Mucous Membranes Moist - Neck Exam Neck Exam: absent: Meningismus - Respiratory Exam Respiratory Exam: Decreased Breath Sounds - Cardiovascular Exam Cardiovascular Exam: +S1, +S2 - GI/Abdominal Exam GI & Abdominal Exam: Soft. absent: Tenderness Assessment and Plan - Assessment and Plan (Free Text) Plan: Assessment Systemic Inflammatory Response Syndrome, consider acute stress reaction from dilated cardiomyopathy S/P cardiac cath in a patient with probable Takotsubo syndrome; so far no sepsis source has been identified hemorrhagic cystitis from NSAIDs osteoporosis seasonal allergies S/P cystoscopy Plan follow up blood, urine cx; PCT is only 0.05; CXR did not show infiltrates - will continue to monitor off antibiotics for now and trend WBC count follow up Coxscakie serologies; Lyme tests are negative, HIV test is negative as well will continue to follow clinically reviewed further Cardiology evaluation
--- NOTE | 2017-04-22 13:46 | PN ---
DATE: 04/22/2017 CARDIOLOGY FOLLOWUP SUBJECTIVE: The patient is asymptomatic. PHYSICAL EXAMINATION: VITAL SIGNS: Blood pressure is 121/82, heart rate in the 70s. NECK: Negative JVD. LUNGS: Without rales. HEART: Reveals S1 and S2. EXTREMITIES: Without edema. LABORATORIES: Reveal a hemoglobin of 11.7. Chemistries: Potassium is 4.4, glucose is pending. IMPRESSION: 1. Status post ventricular tachycardia arrest. 2. Status post cardiopulmonary resuscitation and defibrillation. 3. Takotsubo cardiomyopathy. 4. Diabetes mellitus. PLAN: Given these findings, the patient is doing well. She currently has a defibrillator vest on and should go to the TCU for rehab to improve her weakness. Philip Gillespie MD
[2017-04-23] MEDS ORDERED: Oxycodone/Acetaminophen 5/325 mg Tab PO STA (01:40)
[2017-04-23 06:17] VITALS: RESP 18; O2SAT 95
[2017-04-23 06:32] LABS: BASO # 0.01 K/mm3 (0.0-2.0); BASO % 0.2 % (0.0-3.0); EOS # 0.1 (0.0-0.7); EOS % 1.8 % (1.5-5.0); GRAN # 2.56 (1.4-6.5); GRAN % 47.3 % (50.0-68.0); HEMATOCRIT 34.4 % (36.0-48.0); LYMPH # 2.2 (1.2-3.4); LYMPH % 40.3 % (22.0-35.0); MEAN CELL VOLUME 88.9 fl (80.0-105.0); MEAN CORPUSCULAR HEMOGLOBIN 27.9 pg (25.0-35.0); MEAN CORPUSCULAR HGB CONC 31.4 g/dl (31.0-37.0); MEAN PLATELET VOLUME 10.7 fl (7.0-11.0); MONO # 0.6 (0.1-0.6); MONO % 10.4 % (1.0-6.0); RED CELL DISTRIBUTION WIDTH 16.4 % (11.5-14.5); WHITE BLOOD COUNT 5.4 10^3/ul (4.5-11.0)
[2017-04-23 06:59] LABS: ALB/GLOB RATIO 1.3 (1.1-1.8); ALKALINE PHOSPHATASE 66 U/L (38-126); ALT/SGPT 35 U/L (7-56); AST/SGOT 21 U/L (14-36); BILIRUBIN,TOTAL 0.9 mg/dL (0.2-1.3); BLOOD UREA NITROGEN 15 mg/dL (7-21); CALCIUM 9.1 mg/dL (8.4-10.5); CARBON DIOXIDE 31 mmol/L (21-33); CHLORIDE 102 mmol/L (95-110); GFR AFRICAN-AMERICAN > 60; GLUCOSE,RANDOM 92 mg/dL (70-110); POTASSIUM 4.6 mmol/L (3.6-5.0); SODIUM 140 mmol/L (132-148); TOTAL PROTEIN 6.8 g/dL (5.8-8.3)
[2017-04-23] MEDS: Potassium Chloride 10 mEq ER Tab PO SCH (08:52)
[2017-04-23] MEDS: Magnesium Oxide 400 mg Tab UD PO SCH (09:50)
--- NOTE | 2017-04-23 10:36 | DS ---
SUBJECTIVE: She was walking around the floor yesterday quite well, although labs are better this morning. Dr. Gillespie saw her with me this morning and said we can discharge her. She will follow up on the outpatient. He did want to get a blood test, magnesium, potassium and lab, I will do that this Friday. She will see me next week in my office. She is going home with her family, which is good. She is going home on Flector patch, Benadryl, Colace, Cordarone, potassium, Lopressor, magnesium oxide, Tessalon Perles, Ultram, and Zestril. PHYSICAL EXAMINATION: VITAL SIGNS: She has 98.4 temp, 68 pulse, 112/68 blood pressure, 18 respiratory rate, and 95% of O2 saturation on room air. HEENT: Head is atraumatic and normocephalic. HEART: Regular rate. LUNGS: Decreased breath sounds but clear. ABDOMEN: Soft. EXTREMITIES: No edema. LABORATORY DATA: She had good blood test. She had 5.4 white count, 10.8 hemoglobin, 34.4 hematocrit with a 237 platelets. She had 140 sodium, potassium is 4.6, BUN is 15, and creatinine is 0.7. GFR is greater than 60. Sugar is 92, calcium is 9.1, and total bilirubin is 0.9. AST is 21, ALT is 35, and alkaline phosphatase is 66. Total protein is 6.8. DISCHARGE INSTRUCTIONS: She will be followed up with Dr. Armstrong in about a week. She will follow up with Dr. Gillespie in two to three weeks. She had multiple issues when she was here. She is status post ventricular tachycardia arrest, status post cardiopulmonary resuscitation defibrillation, Takotsubo cardiomyopathy, and diabetes mellitus. Roshan Armstrong DO
--- NOTE | 2017-04-23 10:53 | DS ---
HISTORY OF PRESENT ILLNESS: Dr. Gillespie, bobbin cleaner hand would like her to go to the TCU for physical therapy before she can leave and possibly get a stress test while she is here in TCU. She had Code Heart, STEMI, syncopal, low potassium, hypertension, Takotsubo's cardiomyopathy, SIRS, dilated cardiomyopathy. She is on Colace, Cordarone, potassium, Lopressor, magnesium, Percocet, Tessalon Perles and Zestril. She is off antibiotics because the numbers are better. PHYSICAL EXAMINATION: GENERAL: She is sitting up in bed. She was comfortable. She was eating. Still has some pain from the compression on the left side of ribs, but she is doing better overall. VITAL SIGNS: She has 99.1 temperature, 69 pulse, 128/82 blood pressure, 18 respiratory rate and 95% O2 sat on room air. She wants physical therapy, at least she needs that. LABORATORY DATA: She has a white count of 5.8, hemoglobin 11.6 and platelets of 219. A 141 sodium, potassium 4.8, BUN 30, creatinine 0.6, GFR is greater than 60, sugar is 105, calcium is 9.1, phosphorous 4.2. Total bilirubin is 2.1. ALT is 30. She is being seen by Infectious Disease, she is off antibiotics and Cardiology wants her to go to TCU before she can go home and also possible get a stress test for further management. She is wearing a LifeVest, she should do very well. [facility]. Roshan Armstrong DO
--- NOTE | 2017-04-23 12:08 | PN ---
CARDIOLOGY FOLLOWUP DATE: 04/23/2017 SUBJECTIVE: The patient is complaining of mostly rib pain from her CPR. PHYSICAL EXAMINATION VITAL SIGNS: Stable, heart rate no recurrent VT. NECK: Negative JVD. LUNGS: Decreased breath sounds. HEART: Reveal S1, S2. EXTREMITIES: Without edema. LABORATORY DATA: Potassium and magnesium within normal limits. IMPRESSION: 1. Status post ventricular tachycardia arrest. 2. Takotsubo cardiomyopathy. 3. Hypertension. 4. Chest pain secondary to rib pain. Given these findings, the patient did well with physical therapy and was able to walk two laps around the entire floor. The patient can be discharged today. Follow up instructions have been given to the patient including with a LifeVest. Philip Gillespie MD
[2017-04-23 14:25] VITALS: TEMP 98.6
[2017-04-23 17:09] VITALS: BP 123/66; PULSE 66
[2017-04-23 20:24] LABS: COXSACKIE A10 AB <1:8; COXSACKIE A16 AB <1:8; COXSACKIE A2 AB <1:8; COXSACKIE A7 AB <1:8; COXSACKIE A9 AB <1:8
[2017-04-23 20:24] LABS: COXSACKIE B1 <1:8; COXSACKIE B2 <1:8; COXSACKIE B3 <1:8; COXSACKIE B4 <1:8
== END 2017-04-23 19:45 | disposition home or self-care (01) | DRG 281 ==
LOC: ED 19:56 → ERH 20:09 → CCU 21:09 → 2RNO 04-20 13:01
PROVIDERS: ADMIT Family Medicine; ATTEND Family Medicine
PROC: 4A023N7 Measurement of Cardiac Sampling and Pressure, Left Heart, Percutaneous Approach (ICD-10-PCS; principal; 2017-04-15)
PROC: B211YZZ Fluoroscopy of Multiple Coronary Arteries using Other Contrast (ICD-10-PCS; 2017-04-15)
PROC: B215YZZ Fluoroscopy of Left Heart using Other Contrast (ICD-10-PCS; 2017-04-15)
DX: I51.81 Takotsubo syndrome (principal); I21.3 ST elevation (STEMI) myocardial infarction of unspecified site; I47.2 Ventricular tachycardia; I42.0 Dilated cardiomyopathy; R65.10 Systemic inflammatory response syndrome (SIRS) of non-infectious origin without acute organ dysfunction; E83.51 Hypocalcemia; I10 Essential (primary) hypertension; E78.00 Pure hypercholesterolemia, unspecified; E87.6 Hypokalemia; J44.9 Chronic obstructive pulmonary disease, unspecified; E11.9 Type 2 diabetes mellitus without complications; D64.9 Anemia, unspecified; E05.90 Thyrotoxicosis, unspecified without thyrotoxic crisis or storm; F17.210 Nicotine dependence, cigarettes, uncomplicated; F12.90 Cannabis use, unspecified, uncomplicated; M81.0 Age-related osteoporosis without current pathological fracture; J30.2 Other seasonal allergic rhinitis